=== PATIENT | female | born 1975 | race Caucasian/White ===

== ENCOUNTER 2017-09-21 10:37 | Emergency (ER) | payer BC ==
[~2017-09-21] VITALS: Ht 162.6 cm; Wt 117.9 kg
[2017-09-21] MEDS ORDERED: IBUPROFEN 800 MG TABLET. PO ONE (11:45)
[2017-09-21] MEDS ORDERED: diazePAM 5 MG TABLET PO ONE (11:45)
[2017-09-21] MEDS ORDERED: oxyCODONE/APAP 10/325 1 TAB TABLET PO ONE (11:45)
--- NOTE | 2017-09-21 12:14 | PHYS DOC ---
Past Medical History Past Medical History: Hypertension, Other Additional Past Medical Histor: IDIOPATHIC INTRACRANIAL HTN Past Surgical History: Hysterectomy Alcohol Use: None Drug Use: None Adult General Chief Complaint Chief Complaint: TOOTH ACHE OR PAIN HPI HPI Patient is a 41 year old female presents the ED complaining of dental pain 2 days. Describes the pain as sharp. Rates the pain as 9/10. Pain with chewing. States she also has some sores in her mouth. Denies chest pain, shortness of breath, headache, difficulty swallowing, n/v, fever, weakness or dizziness. Review of Systems Review of Systems Constitutional: Denies fever or chills [] Eyes: Denies change in visual acuity, redness, or eye pain [] HENT: Denies nasal congestion or sore throat [] Respiratory: Denies cough or shortness of breath [] Cardiovascular: No additional information not addressed in HPI [] GI: Denies abdominal pain, nausea, vomiting, bloody stools or diarrhea [] : Denies dysuria or hematuria [] Musculoskeletal: Denies back pain or joint pain [] Integument: Denies rash or skin lesions [] Neurologic: Denies headache, focal weakness or sensory changes [] Endocrine: Denies polyuria or polydipsia [] All other systems were reviewed and found to be within normal limits, except as documented in this note. Current Medications Current Medications Current Medications Medications (Trade) Dose Ordered Sig/Joey Start Time Stop Time Status Last Admin Dose Admin Diazepam (Valium) 5 mg 1X ONCE 09/21/17 11:45 09/21/17 11:46 DC 09/21/17 11:55 5 MG Ibuprofen (Motrin) 800 mg 1X ONCE 09/21/17 11:45 09/21/17 11:46 DC 09/21/17 11:54 800 MG Oxycodone/ Acetaminophen (Percocet 10/325) 1 tab 1X ONCE 09/21/17 11:45 09/21/17 11:46 DC 09/21/17 11:55 1 TAB Allergies Allergies Allergies Coded Allergies Type Severity Reaction Last Updated Verified Sulfa (Sulfonamide Antibiotics) Allergy Intermediate Rash 09/21/17 Yes codeine Allergy Intermediate Rash 09/21/17 Yes Physical Exam Physical Exam Constitutional: Well developed, well nourished, no acute distress, non-toxic appearance. [] HENT: Normocephalic, atraumatic, bilateral external ears normal, oropharynx moist, APTHOUS ULCERS TO INNER BUCCAL MUCOSA. MILD DENTAL CARIES TO LEFT LOWER MOLARS. NO ABSCESS OR FLUCTUANCE. no oral exudates, nose normal. [] Eyes: PERRLA, EOMI, conjunctiva normal, no discharge. [] Neck: Normal range of motion, no tenderness, supple, no stridor. [] Cardiovascular:Heart rate regular rhythm, no murmur [] Lungs & Thorax: Bilateral breath sounds clear to auscultation [] Neurologic: Alert and oriented X 3, normal motor function, normal sensory function, no focal deficits noted. [] Psychologic: Affect normal, judgement normal, mood normal. [] Current Patient Data Vital Signs Vital Signs Date Time Temp Pulse Resp B/P (MAP) Pulse Ox O2 Delivery O2 Flow Rate FiO2 09/21/17 12:40 102 16 175/77 (109) 100 Room Air 09/21/17 11:13 98.8 98.8 EKG EKG [] Radiology/Procedures Radiology/Procedures [] Course & Med Decision Making Course & Med Decision Making Pertinent Labs and Imaging studies reviewed. (See chart for details) []Patient's blood pressure elevated upon arrival. Patient has a history of intracranial hypertension. Patient states she was just saw her doctor 2 days ago and had normal lab work and vitals. Patient's blood pressure elevated due to pain component. Patient denies any cardiac related symptoms. Analgesics given in ED. Patients has blood pressure improved to 175/80. Pains pain improved. States she is feeling much better. Discussed follow-up for repeat serial blood pressure monitoring this coming week. Patient states she will make an appointment with her PCP on Saturday. Discussed the importance of follow-up and risks if patient does not follow-up. Patient understands and agrees with plan. Dragon Disclaimer Dragon Disclaimer This electronic medical record was generated, in whole or in part, using a voice recognition dictation system. Departure Departure Impression: Primary Impression: Pain, dental Additional Impressions: Hypertension Aphthous ulcer Referrals: RENUKA LUX (PCP) Patient Instructions: Dental Caries, Hypertension, Oral Ulcers Scripts Amoxicillin (AMOXICILLIN) 500 Mg Capsule 500 MG PO TID for 10 Days, #30 CAP 0 Refills Prov: FREDDY HAYES 09/21/17 Oxycodone/Apap 5-325 (PERCOCET 5-325 MG TABLET) 1 Each Tablet 1 TAB PO TID, #12 TAB Prov: FREDDY HAYES 09/21/17 Problem Qualifiers FREDDY HAYES Sep 21, 2017 12:14
[2017-09-21 12:40] VITALS: BP 175/77
[2017-09-21] MEDS ORDERED: OXYC-323 PO (13:00)
[2017-09-21] MEDS ORDERED: AMOX500C PO (13:00)
== END 2017-09-21 13:06 | disposition home or self-care (01) ==
LOC: ER 10:37
DX: K08.89 Other specified disorders of teeth and supporting structures (principal); I10 Essential (primary) hypertension; K12.0 Recurrent oral aphthae; Z90.710 Acquired absence of both cervix and uterus; Z88.2 Allergy status to sulfonamides; Z88.5 Allergy status to narcotic agent
CPT/HCPCS: 99284

== ENCOUNTER 2019-02-12 18:52 | Inpatient (IN) | payer BC ==
[~2019-02-12] VITALS: Ht 162.6 cm; Wt 119.3 kg
[~2019-02-12 18:52] MED LIST: AMOX500C PO; OXYC1TAB15 PO
[2019-02-12 19:31] LABS: BASO # 0.1 x10^3/uL (0.0-0.2); BASO % 0 % (0-3); EOS # 0.2 x10^3/uL (0.0-0.7); EOS % 2 % (0-3); HEMATOCRIT 45.3 % (36.0-47.0); HEMOGLOBIN 15.6 g/dL (12.0-15.5); LYMPH # 2.3 x10^3/uL (1.0-4.8); LYMPH % 15 % (24-48); MEAN CORPUSCULAR HEMOGLOBIN 30 pg (25-35); MEAN CORPUSCULAR HGB CONC 35 g/dL (31-37); MEAN CORPUSCULAR VOLUME 87 fL (79-100); MONO # 0.5 x10^3/uL (0.0-1.1); MONO % 3 % (0-9); NEUT # 12.6 x10^3uL (1.8-7.7); NEUT % 80 % (31-73); PLATELET COUNT 340 x10^3/uL (140-400); RED BLOOD COUNT 5.19 x10^6/uL (3.50-5.40); RED CELL DISTRIBUTION WIDTH 12.8 % (11.5-14.5); WHITE BLOOD COUNT 15.7 x10^3/uL (4.0-11.0)
[2019-02-12 19:40] LABS: CALCIUM 9.9 mg/dL (8.5-10.1); CREATININE 1.1 mg/dL (0.6-1.0); GFR 54.2; POTASSIUM 3.8 mmol/L (3.5-5.1); PROTHROMBIN TIME PATIENT 13.7 SEC (11.7-14.0)
[2019-02-12 19:46] LABS: ALBUMIN 4.2 g/dL (3.4-5.0); TOTAL BILIRUBIN 0.7 mg/dL (0.2-1.0); TOTAL PROTEIN 8.5 g/dL (6.4-8.2)
[2019-02-12] MEDS ORDERED: ONDANSETRON PF 4 MG/2 ML VIAL. IV ONE (20:00)
[2019-02-12] MEDS ORDERED: IV NORMAL SALINE 1000ML BAG 1,000 ML IV ONE ×3 (20:00→21:45)
[2019-02-12 20:09] LABS: % BANDS 19 % (0-9); % LYMPHS 14 % (24-48); % MONOS 2 % (0-10); % SEGS 65 % (35-66); PLT ESTIMATE ADEQUATE (ADEQUATE)
[2019-02-12] MEDS ORDERED: KETOROLAC 30 MG/ML VIAL. IV ONE (20:45)
[2019-02-12 20:49] LABS: BILIRUBIN,URINE NEGATIVE (NEG); CLARITY,URINE CLEAR; COLOR,URINE YELLOW; NITRITE,URINE NEGATIVE (NEG); PROTEIN,URINE NEGATIVE (NEG-TRACE); UROBILINOGEN,URINE 0.2 mg/dL (0.2 mg/dL)
[2019-02-12 20:58] LABS: HYALINE CASTS, URINE MANY /HPF; SQUAMOUS EPITHELIAL CELL,UR FEW /LPF
[2019-02-12 20:59] LABS: BACTERIA,URINE 0 /HPF (0-FEW); RBC,URINE OCC /HPF (0-2); WBC,URINE 0 /HPF (0-4)
--- NOTE | 2019-02-12 21:03 | RAD ---
Limited abdomen ultrasound HISTORY: Right upper quadrant pain radiating to the back for one day. FINDINGS: Pancreas poorly seen. Liver demonstrates coarse echogenicity compatible with fatty infiltration. Not grossly enlarged, measuring 17.4 cm. Right kidney measures 11.2 cm longitudinal without hydronephrosis. There is mild pericholecystic fluid. Gallbladder is mildly distended. Positive sonographic Nelson sign. Mild gallbladder wall thickening of 4 mm. No definite gallstone. No significant biliary ductal dilatation. IMPRESSION: No evidence of cholelithiasis. However, gallbladder findings are suggestive of cholecystitis. Inferior vena cava is documented. Electronically signed by: Waylon Cason MD (02/12/2019 8:59 PM) [facility]
[2019-02-12] MEDS ORDERED: CONTRAST GIVEN. MC PRN (21:30)
[2019-02-12] MEDS ORDERED: IOHEXOL 300 MG/ML 100ML VIAL. IV ONE (21:30)
[2019-02-12] MEDS ORDERED: PIPERACILLIN/TAZOBACTAM 3.375 GM in IV NORMAL SALINE 50ML 50 ML IV ONE (22:00)
--- NOTE | 2019-02-12 22:03 | RAD ---
CT ABD PELV W/ IV CONTRST ONLY Indication: RUQ PAIN; OMNI 300, 60ML Exposure: One or more of the following individualized dose reduction techniques were utilized for this examination: 1. Automated exposure control 2. Adjustment of the mA and/or kV according to patient size 3. Use of iterative reconstruction technique. Technique: Intravenous contrast was given. No oral contrast per request. Lung bases are clear. Liver and spleen appear unremarkable. No evidence of adrenal mass. Pancreas appears unremarkable. Kidneys demonstrate symmetric enhancement without hydronephrosis or dominant mass. No calcified gallstone. Gallbladder is mildly distended and there is mild gallbladder wall thickening. The aorta is nonaneurysmal. Small aortocaval lymph nodes are identified measuring up to 8 mm in short axis, likely reactive. No pathologic lymph node enlargement is seen. The aorta is nonaneurysmal. No significant small bowel distention. No evidence of acute colitis. The appendix appears normal. No evidence of ascites or pneumoperitoneum. Mild degenerative spurring of the spine. No acute bone destruction. No evidence of pelvic mass. No significant urinary bladder wall thickening. IMPRESSION: 1. Mild gallbladder distention with wall thickening, suggestive of acute cholecystitis. No evidence of calcified stone. 2. No other acute findings. Electronically signed by: Waylon Cason MD (02/12/2019 10:00 PM) [facility]
--- NOTE | 2019-02-12 22:21 | PHYS DOC ---
Past Medical History Past Medical History: Diabetes-Type II, Fibromyalgia, Hypertension, Hypothyroid, Other Additional Past Medical Histor: IDIOPATHIC INTRACRANIAL HTN, Restless Leg Past Surgical History: Hysterectomy, Other Additional Past Surgical Histo: Bilateral Carpal Tunnel Alcohol Use: None Drug Use: None Adult General Chief Complaint Chief Complaint: FLANK PAIN HPI HPI Patient is a 43 year old female presents to the due to chief complaint of right abdominal tenderness which radiates to her right shoulder. Patient states that the pain started this morning. Patient also states that she has constant vomiting since this morning and is not able to hold anything down. Review of Systems Review of Systems Constitutional: Denies fever or chills [] Eyes: Denies change in visual acuity, redness, or eye pain [] HENT: Denies nasal congestion or sore throat [] Respiratory: Denies cough or shortness of breath [] Cardiovascular: No additional information not addressed in HPI [] GI: Complains of right upper quadrant tenderness. Patient also complains of vomiting. : Denies dysuria or hematuria [] Musculoskeletal: Denies back pain or joint pain [] Integument: Denies rash or skin lesions [] Neurologic: Denies headache, focal weakness or sensory changes [] Endocrine: Denies polyuria or polydipsia [] All other systems were reviewed and found to be within normal limits, except as documented in this note. Current Medications Current Medications Current Medications Medications (Trade) Dose Ordered Sig/Joey Start Time Stop Time Status Last Admin Dose Admin Info (CONTRAST GIVEN -- Rx MONITORING) 1 each PRN DAILY PRN 02/12/19 21:30 02/14/19 21:29 Iohexol (Omnipaque 300 Mg/ml) 60 ml 1X ONCE 02/12/19 21:30 02/12/19 21:31 DC 02/12/19 21:41 60 ML Ketorolac Tromethamine (Toradol 30mg Vial) 30 mg 1X ONCE 02/12/19 20:45 02/12/19 20:46 DC 02/12/19 20:47 30 MG Ondansetron HCl (Zofran) 4 mg 1X ONCE 02/12/19 20:00 02/12/19 20:01 DC 02/12/19 19:35 4 MG Sodium Chloride 1,000 ml @ 1,000 mls/hr 1X ONCE 02/12/19 21:00 02/12/19 21:59 DC 02/12/19 20:47 1,000 MLS/HR Allergies Allergies Allergies Coded Allergies Type Severity Reaction Last Updated Verified Sulfa (Sulfonamide Antibiotics) Allergy Intermediate Rash 09/21/17 Yes codeine Allergy Intermediate Rash 09/21/17 Yes Physical Exam Physical Exam Constitutional: Well developed, well nourished, no acute distress, non-toxic appearance. HENT: Normocephalic, atraumatic, normocaphalic Eyes: PERRL, EOMI Neck: Normal range of motion, no tenderness, supple Cardiovascular: Tachycardia Resp: Bilateral breath sounds clear to auscultation Abdomen: Right upper quadrant tenderness Skin: Warm, dry, no erythema, no rash. Back: No tenderness, no CVA tenderness. Extremities: No tenderness, ROM intact, no edema. Neurologic: Alert and oriented X 3, normal motor function, normal sensory function, no focal deficits noted. Psychologic: Affect normal, judgement normal, mood normal. Current Patient Data Vital Signs Vital Signs Date Time Temp Pulse Resp B/P (MAP) Pulse Ox O2 Delivery O2 Flow Rate FiO2 02/12/19 21:08 112 175/89 (117) 95 Room Air 02/12/19 19:00 98.1 18 98.1 Lab Values Laboratory Tests Test 02/12/19 19:20 02/12/19 20:35 White Blood Count 15.7 x10^3/uL (4.0-11.0) H Red Blood Count 5.19 x10^6/uL (3.50-5.40) Hemoglobin 15.6 g/dL (12.0-15.5) H Hematocrit 45.3 % (36.0-47.0) Mean Corpuscular Volume 87 fL (79-100) Mean Corpuscular Hemoglobin 30 pg (25-35) Mean Corpuscular Hemoglobin Concent 35 g/dL (31-37) Red Cell Distribution Width 12.8 % (11.5-14.5) Platelet Count 340 x10^3/uL (140-400) Neutrophils (%) (Auto) 80 % (31-73) H Lymphocytes (%) (Auto) 15 % (24-48) L Monocytes (%) (Auto) 3 % (0-9) Eosinophils (%) (Auto) 2 % (0-3) Basophils (%) (Auto) 0 % (0-3) Neutrophils # (Auto) 12.6 x10^3uL (1.8-7.7) H Lymphocytes # (Auto) 2.3 x10^3/uL (1.0-4.8) Monocytes # (Auto) 0.5 x10^3/uL (0.0-1.1) Eosinophils # (Auto) 0.2 x10^3/uL (0.0-0.7) Basophils # (Auto) 0.1 x10^3/uL (0.0-0.2) Segmented Neutrophils % 65 % (35-66) Band Neutrophils % 19 % (0-9) H Lymphocytes % 14 % (24-48) L Monocytes % 2 % (0-10) Platelet Estimate Adequate (ADEQUATE) Prothrombin Time 13.7 SEC (11.7-14.0) Prothrombin Time INR 1.1 (0.8-1.1) Sodium Level 137 mmol/L (136-145) Potassium Level 3.8 mmol/L (3.5-5.1) Chloride Level 99 mmol/L (98-107) Carbon Dioxide Level 26 mmol/L (21-32) Anion Gap 12 (6-14) Blood Urea Nitrogen 9 mg/dL (7-20) Creatinine 1.1 mg/dL (0.6-1.0) H Estimated GFR (Cockcroft-Gault) 54.2 BUN/Creatinine Ratio 8 (6-20) Glucose Level 185 mg/dL (70-99) H Lactic Acid Level 2.8 mmol/L (0.4-2.0) H Calcium Level 9.9 mg/dL (8.5-10.1) Total Bilirubin 0.7 mg/dL (0.2-1.0) Aspartate Amino Transferase (AST) 22 U/L (15-37) Alanine Aminotransferase (ALT) 31 U/L (14-59) Alkaline Phosphatase 97 U/L (46-116) Troponin I Quantitative < 0.017 ng/mL (0.000-0.055) Total Protein 8.5 g/dL (6.4-8.2) H Albumin 4.2 g/dL (3.4-5.0) Albumin/Globulin Ratio 1.0 (1.0-1.7) Lipase 75 U/L (73-393) Urine Collection Type Unknown Urine Color Yellow Urine Clarity Clear Urine pH 6.0 Urine Specific [place] <=1.005 Urine Protein Negative mg/dL (NEG-TRACE) Urine Glucose (UA) Negative mg/dL (NEG) Urine Ketones (Stick) Negative mg/dL (NEG) Urine Blood Negative (NEG) Urine Nitrite Negative (NEG) Urine Bilirubin Negative (NEG) Urine Urobilinogen Dipstick 0.2 mg/dL (0.2 mg/dL) Urine Leukocyte Esterase Negative (NEG) Urine RBC Occ /HPF (0-2) Urine WBC 0 /HPF (0-4) Urine Squamous Epithelial Cells Few /LPF Urine Bacteria 0 /HPF (0-FEW) Urine Hyaline Casts Many /HPF Urine Mucus Mod /LPF Laboratory Tests 02/12/19 19:20 Laboratory Tests 02/12/19 19:20 EKG EKG EKG interpretation: 19:09 on 02/12/2019 HR: 158 Sinus tachycardia regular intervals Normal axis Nonspecific ST changes No STEMI Radiology/Procedures Radiology/Procedures [] Impressions: PROCEDURE: ABDOMEN LTD Limited abdomen ultrasound HISTORY: Right upper quadrant pain radiating to the back for one day. FINDINGS: Pancreas poorly seen. Liver demonstrates coarse echogenicity compatible with fatty infiltration. Not grossly enlarged, measuring 17.4 cm. Right kidney measures 11.2 cm longitudinal without hydronephrosis. There is mild pericholecystic fluid. Gallbladder is mildly distended. Positive sonographic Nelson sign. Mild gallbladder wall thickening of 4 mm. No definite gallstone. No significant biliary ductal dilatation. IMPRESSION: No evidence of cholelithiasis. However, gallbladder findings are suggestive of cholecystitis. Inferior vena cava is documented. Electronically signed by: Waylon Cason MD (02/12/2019 8:59 PM) [facility] PROCEDURE: CT ABD PELV W/ IV CONTRST ONLY CT ABD PELV W/ IV CONTRST ONLY Indication: RUQ PAIN; OMNI 300, 60ML Exposure: One or more of the following individualized dose reduction techniques were utilized for this examination: 1. Automated exposure control 2. Adjustment of the mA and/or kV according to patient size 3. Use of iterative reconstruction technique. Technique: Intravenous contrast was given. No oral contrast per request. Lung bases are clear. Liver and spleen appear unremarkable. No evidence of adrenal mass. Pancreas appears unremarkable. Kidneys demonstrate symmetric enhancement without hydronephrosis or dominant mass. No calcified gallstone. Gallbladder is mildly distended and there is mild gallbladder wall thickening. The aorta is nonaneurysmal. Small aortocaval lymph nodes are identified measuring up to 8 mm in short axis, likely reactive. No pathologic lymph node enlargement is seen. The aorta is nonaneurysmal. No significant small bowel distention. No evidence of acute colitis. The appendix appears normal. No evidence of ascites or pneumoperitoneum. Mild degenerative spurring of the spine. No acute bone destruction. No evidence of pelvic mass. No significant urinary bladder wall thickening. IMPRESSION: 1. Mild gallbladder distention with wall thickening, suggestive of acute cholecystitis. No evidence of calcified stone. 2. No other acute findings. Electronically signed by: Waylon Cason MD (02/12/2019 10:00 PM) [facility] Course & Med Decision Making Course & Med Decision Making Pertinent Labs and Imaging studies reviewed. (See chart for details) Ordered labs, UA, IV fluids, ultrasound of the right upper quadrant. Patient is WBC is elevated at 15.7. Lactate is 2.8. Ordered blood cultures. Patient received a total of 3 L in the ER. Heart rate now in the low 110s. Ultrasound shows that patient has probable cholecystitis. I ordered IV antibiotics in the ED. I discussed the case with general surgery on-call Dr. Cordon. He recommends the p atient be admitted to the hospitalist service, I ordered a CT scan of the abdomen and pelvis with IV contrast. CT scan also shows most likely cholecystitis. I discussed the case with Dr. Graham who is a hospital list on-call who accepts admission. I also discussed results and plan of care with patient and family. Patient's blood pressures elevated and she is not able to take her night meds an d so I have ordered labetalol 5 mg IV. Dragon Disclaimer Dragon Disclaimer This electronic medical record was generated, in whole or in part, using a voice recognition dictation system. Departure Departure Referrals: RENUKA LUX (PCP) MIRIAN GILBERT DO February 12, 2019 22:21
[2019-02-12] MEDS ORDERED: LABETALOL 20 MG/4 ML DISP.SYRIN. IVP ONE (22:30)
[2019-02-12] MEDS ORDERED: LABETALOL 20 MG/4 ML DISP.SYRIN. IVP PRN (22:30)
[2019-02-12 23:30] VITALS: BP 176/104
[2019-02-12] MEDS ORDERED: ROPI0.5T PO (23:48)
[2019-02-12] MEDS ORDERED: PROM25TA10 PO (23:48)
[2019-02-12] MEDS ORDERED: TIZA4TAB PO (23:48)
[2019-02-12] MEDS ORDERED: ATOR10TA60 PO (23:48)
[2019-02-12] MEDS ORDERED: LOSA25TA54 PO (23:48)
[2019-02-12] MEDS ORDERED: LAMO150T2 PO (23:48)
[2019-02-12] MEDS ORDERED: CLON0.5T11 PO (23:48)
[2019-02-12] MEDS ORDERED: CARV12.511 PO (23:48)
[2019-02-12] MEDS ORDERED: AMIT50TA PO (23:48)
[2019-02-13] MEDS ORDERED: tiZANidine 4 MG TABLET. PO PRN (00:45)
[2019-02-13] MEDS: MORPHINE SULFATE 2 MG/ML VIAL. IV PRN ×2 (01:35→10:19)
[2019-02-13] MEDS: IV NORMAL SALINE 1000ML BAG 1,000 ML IV SCH ×3 (01:35→23:12)
[2019-02-13] MEDS: AMITRIPTYLINE HCL 25 MG TABLET. PO SCH ×2 (01:36→21:51)
[2019-02-13] MEDS: rOPINIRole 0.25 MG TABLET. PO SCH ×2 (01:36→09:00)
[2019-02-13] MEDS: ONDANSETRON PF 4 MG/2 ML VIAL. IV PRN ×2 (01:36→17:09)
[2019-02-13] MEDS: LOSARTAN POTASSIUM 25 MG TABLET. PO SCH ×2 (01:37→21:52)
[2019-02-13] MEDS: lamoTRIgine 100 MG TABLET. PO SCH ×2 (01:38→09:00)
[2019-02-13] MEDS: CARVEDILOL 12.5 MG TABLET. PO SCH ×4 (01:38→21:51)
[2019-02-13] MEDS: ATORVASTATIN CALCIUM 10 MG TABLET. PO SCH ×2 (01:38→21:52)
[2019-02-13] MEDS: clonazePAM 0.5 MG TABLET PO SCH ×3 (01:39→21:50)
[2019-02-13 03:38] VITALS: BP 121/65
[2019-02-13] MEDS ORDERED: IOHEXOL 300 MG/ML 100ML VIAL. ONE (05:06)
--- NOTE | 2019-02-13 07:02 | EKG ---
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
[2019-02-13 07:15] VITALS: BP 128/88
[2019-02-13] MEDS: KETOROLAC 30 MG/ML VIAL. IV PRN ×2 (08:27→20:26)
--- NOTE | 2019-02-13 08:56 | PDOC2 ---
NAVYA PERRY MANAGER WEALTH MANAGEMENT 02/13/19 0856: CONSULT Date of Consult Date of Consult DATE: 02/13/19 TIME: 08:49 Reason for Consult Reason for Consult: possible cholecystitis Referring Physician Referring Physician: ER Identification/Chief Complaint Chief Complaint abdominal pain Source Source: Chart review, Patient History of Present Illness Reason for Visit: Acute onset of vomiting and diarrhea yesterday. Also developed epigastric, RUQ pain. Pain radiates up to chest. Denies any sick contacts, had bbq for dinner, however no one else got sick.. Currently no further vomiting or diarrhea, pain does persist Past Medical History Past Medical History intracranial HTN Cardiovascular: HTN, Hyperlipidemia Heme/Onc: Cancer (cervical ) Rheumatologic: Fibromyalgia Endocrine: Hypothyroidism Past Surgical History Past Surgical History: Hysterectomy Family History Family History: Other (noncontributory to current illness ) Social History No ALCOHOL: none Drugs: None Lives: with Family Current Medications Current Medications Current Medications Sodium Chloride 1,000 ml @ 1,000 mls/hr 1X ONCE IV Last administered on 02/12/19at 19:35; Start 02/12/19 at 20:00; Stop 02/12/19 at 20:59; Status DC Ondansetron HCl (Zofran) 4 mg 1X ONCE IV Last administered on 02/12/19at 19:35; Start 02/12/19 at 20:00; Stop 02/12/19 at 20:01; Status DC Sodium Chloride 1,000 ml @ 1,000 mls/hr 1X ONCE IV Last administered on 02/12/19at 20:47; Start 02/12/19 at 21:00; Stop 02/12/19 at 21:59; Status DC Ketorolac Tromethamine (Toradol 30mg Vial) 30 mg 1X ONCE IV Last administered on 02/12/19at 20:47; Start 02/12/19 at 20:45; Stop 02/12/19 at 20:46; Status DC Iohexol (Omnipaque 300 Mg/ml) 60 ml 1X ONCE IV Last administered on 02/12/19at 21:41; Start 02/12/19 at 21:30; Stop 02/12/19 at 21:31; Status DC Info (CONTRAST GIVEN -- Rx MONITORING) 1 each PRN DAILY PRN MC SEE COMMENTS; Start 02/12/19 at 21:30; Stop 02/14/19 at 21:29 Sodium Chloride 1,000 ml @ 1,000 mls/hr 1X ONCE IV Last administered on 02/12/19at 22:05; Start 02/12/19 at 21:45; Stop 02/12/19 at 22:44; Status DC Piperacillin Sod/ Tazobactam Sod 3.375 gm/Sodium Chloride 50 ml @ 100 mls/hr 1X ONCE IV Last administered on 02/12/19at 22:05; Start 02/12/19 at 22:00; Stop 02/12/19 at 22:29; Status DC Ondansetron HCl (Zofran) 4 mg PRN Q8HRS PRN IV NAUSEA/VOMITING Last administered on 02/13/19 01:36; Start 02/12/19 at 22:00; Stop 02/13/19 at 21:59 Labetalol HCl (Normodyne Iv Push) 5 mg 1X ONCE IVP Last administered on 02/12/19at 22:42; Start 02/12/19 at 22:30; Stop 02/12/19 at 22:31; Status DC Labetalol HCl (Normodyne Iv Push) 5 mg PRN Q10MIN PRN IVP HYPERTENSION, SEE COMMENTS; Start 02/12/19 at 22:30 Amitriptyline HCl (Elavil) 50 mg HS PO Last administered on 02/13/19 01:36; Start 02/13/19 at 00:45 Atorvastatin Calcium (Lipitor) 10 mg HS PO Last administered on 02/13/19 01:38; Start 02/13/19 at 00:45 Carvedilol (Coreg) 12.5 mg BIDWMEALS PO Last administered on 02/13/19 08:26; Start 02/13/19 at 00:45 Clonazepam (KlonoPIN) 0.5 mg BID PO Last administered on 02/13/19 08:26; Start 02/13/19 at 00:45 Losartan Potassium (Cozaar) 25 mg HS PO Last administered on 02/13/19at 01:37; Start 02/13/19 at 00:45 Oxycodone/ Acetaminophen (Percocet 5/325) 1 tab TID PO ; Start 02/13/19 at 09:00 Lamotrigine (LaMICtal) 150 mg DAILY PO Last administered on 5/3/19at 01:38; Start 02/13/19 at 00:45 Promethazine HCl (Phenergan) 25 mg PRN Q6HRS PRN PO NAUSEA/VOMITING; Start 02/13/19 at 00:45 Ropinirole HCl (Requip) 0.25 mg DAILY PO Last administered on 02/13/19at 01:36; Start 02/13/19 at 00:45 Tizanidine HCl (Zanaflex) 4 mg PRN TID PRN PO spasms; Start 02/13/19 at 00:45 Morphine Sulfate (Morphine Sulfate) 2 mg PRN Q2HR PRN IV PAIN Last administered on 02/13/19at 01:35; Start 02/13/19 at 00:45 Ketorolac Tromethamine (Toradol 30mg Vial) 30 mg PRN Q6HRS PRN IV PAIN Last ad ministered on 02/13/19at 08:27; Start 02/13/19 at 00:45; Stop 02/18/19 at 00:44 Sodium Chloride 1,000 ml @ 125 mls/hr Q8H IV Last administered on 02/13/19at 01:35; Start 02/13/19 at 01:30 Iohexol (Omnipaque 300 Mg/ml) 100 ml STK-MED ONCE .ROUTE ; Start 02/13/19 at 05:06; Stop 02/13/19 at 05:07; Status DC Active Scripts Active Amoxicillin 500 Mg Capsule 500 Mg PO TID 10 Days Percocet 5-325 Mg Tablet (Oxycodone/Acetaminophen) 1 Each Tablet 1 Tab PO TID Reported Amitriptyline Hcl 50 Mg Tablet 50 Mg PO HS Losartan Potassium (Losartan Potassium) 25 Mg Tablet 25 Mg PO HS Clonazepam 0.5 Mg Tablet 0.5 Mg PO BID Lamotrigine 150 Mg Tablet 150 Mg PO DAILY Carvedilol (Carvedilol) 12.5 Mg Tablet 12.5 Mg PO BIDWMEALS Promethazine Hcl 25 Mg Tablet 25 Mg PO Q6H PRN Atorvastatin Calcium 10 Mg Tablet 10 Mg PO HS Requip (Ropinirole Hcl) 0.5 Mg Tablet 0.25 Mg PO DAILY Tizanidine Hcl 4 Mg Tablet 1 Tab PO TID PRN Allergies Allergies: Coded Allergies: Sulfa (Sulfonamide Antibiotics) (Verified Allergy, Intermediate, Rash, 12/9/17) codeine (Verified Allergy, Intermediate, Rash, 09/21/17) ROS General: No: Chills, Other (fevers ) PSYCHOLOGICAL ROS: No: Anxiety, Depression Eyes: No Blurry vision, No Double vision HEENT: No: Heacaches, Sore Throat Hematological and Lymphatic: No: Bleeding Problems, Blood Clots Respiratory: No: Cough, Shortness of breath Cardiovascular: yes Chest Pain; No Palpitations Gastrointestinal: Yes Other (see hpi) Genitourinary: No Dysuria, No Hematuria Musculoskeletal: No Joint Pain, No Muscle Pain Neurological: No Impaired Coord/balance, No Numbness/Tingling Skin: No Pruritus, No Rash Physical Exam General: Alert, Oriented X3, Cooperative, No acute distress HEENT: PERRLA, Mucous membr. moist/pink Lungs: Clear to auscultation, Normal air movement Heart: Regular rate, Normal S1, Normal S2, No murmurs Abdomen: Soft, Other (ND, epigastric, RUQ TTP) Extremities: No clubbing, No cyanosis Skin: No rashes, No breakdown Neuro: Normal gait, Normal speech Psych/Mental Status: Mental status NL, Mood NL MUSCULOSKELETAL: No deformity, No swelling Vitals VITALS Vital Signs Date Time Temp Pulse Resp B/P (MAP) Pulse Ox O2 Delivery O2 Flow Rate FiO2 02/13/19 08:26 83 128/88 02/13/19 07:15 98.4 18 96 Room Air 98.4 Labs Labs Laboratory Tests Test 02/12/19 19:20 02/12/19 20:35 White Blood Count 15.7 x10^3/uL (4.0-11.0) Red Blood Count 5.19 x10^6/uL (3.50-5.40) Hemoglobin 15.6 g/dL (12.0-15.5) Hematocrit 45.3 % (36.0-47.0) Mean Corpuscular Volume 87 fL (79-100) Mean Corpuscular Hemoglobin 30 pg (25-35) Mean Corpuscular Hemoglobin Concent 35 g/dL (31-37) Red Cell Distribution Width 12.8 % (11.5-14.5) Platelet Count 340 x10^3/uL (140-400) Neutrophils (%) (Auto) 80 % (31-73) Lymphocytes (%) (Auto) 15 % (24-48) Monocytes (%) (Auto) 3 % (0-9) Eosinophils (%) (Auto) 2 % (0-3) Basophils (%) (Auto) 0 % (0-3) Neutrophils # (Auto) 12.6 x10^3uL (1.8-7.7) Lymphocytes # (Auto) 2.3 x10^3/uL (1.0-4.8) Monocytes # (Auto) 0.5 x10^3/uL (0.0-1.1) Eosinophils # (Auto) 0.2 x10^3/uL (0.0-0.7) Basophils # (Auto) 0.1 x10^3/uL (0.0-0.2) Segmented Neutrophils % 65 % (35-66) Band Neutrophils % 19 % (0-9) Lymphocytes % 14 % (24-48) Monocytes % 2 % (0-10) Platelet Estimate Adequate (ADEQUATE) Prothrombin Time 13.7 SEC (11.7-14.0) Prothromb Time International Ratio 1.1 (0.8-1.1) Sodium Level 137 mmol/L (136-145) Potassium Level 3.8 mmol/L (3.5-5.1) Chloride Level 99 mmol/L (98-107) Carbon Dioxide Level 26 mmol/L (21-32) Anion Gap 12 (6-14) Blood Urea Nitrogen 9 mg/dL (7-20) Creatinine 1.1 mg/dL (0.6-1.0) Estimated GFR (Cockcroft-Gault) 54.2 BUN/Creatinine Ratio 8 (6-20) Glucose Level 185 mg/dL (70-99) Lactic Acid Level 2.8 mmol/L (0.4-2.0) Calcium Level 9.9 mg/dL (8.5-10.1) Total Bilirubin 0.7 mg/dL (0.2-1.0) Aspartate Amino Transf (AST/SGOT) 22 U/L (15-37) Alanine Aminotransferase (ALT/SGPT) 31 U/L (14-59) Alkaline Phosphatase 97 U/L (46-116) Troponin I Quantitative < 0.017 ng/mL (0.000-0.055) Total Protein 8.5 g/dL (6.4-8.2) Albumin 4.2 g/dL (3.4-5.0) Albumin/Globulin Ratio 1.0 (1.0-1.7) Lipase 75 U/L (73-393) Urine Collection Type Unknown Urine Color Yellow Urine Clarity Clear Urine pH 6.0 Urine Specific Clayton <=1.005 Urine Protein Negative mg/dL (NEG-TRACE) Urine Glucose (UA) Negative mg/dL (NEG) Urine Ketones (Stick) Negative mg/dL (NEG) Urine Blood Negative (NEG) Urine Nitrite Negative (NEG) Urine Bilirubin Negative (NEG) Urine Urobilinogen Dipstick 0.2 mg/dL (0.2 mg/dL) Urine Leukocyte Esterase Negative (NEG) Urine RBC Occ /HPF (0-2) Urine WBC 0 /HPF (0-4) Urine Squamous Epithelial Cells Few /LPF Urine Bacteria 0 /HPF (0-FEW) Urine Hyaline Casts Many /HPF Urine Mucus Mod /LPF Laboratory Tests Test 02/12/19 19:20 02/12/19 20:35 White Blood Count 15.7 x10^3/uL (4.0-11.0) Red Blood Count 5.19 x10^6/uL (3.50-5.40) Hemoglobin 15.6 g/dL (12.0-15.5) Hematocrit 45.3 % (36.0-47.0) Mean Corpuscular Volume 87 fL (79-100) Mean Corpuscular Hemoglobin 30 pg (25-35) Mean Corpuscular Hemoglobin Concent 35 g/dL (31-37) Red Cell Distribution Width 12.8 % (11.5-14.5) Platelet Count 340 x10^3/uL (140-400) Neutrophils (%) (Auto) 80 % (31-73) Lymphocytes (%) (Auto) 15 % (24-48) Monocytes (%) (Auto) 3 % (0-9) Eosinophils (%) (Auto) 2 % (0-3) Basophils (%) (Auto) 0 % (0-3) Neutrophils # (Auto) 12.6 x10^3uL (1.8-7.7) Lymphocytes # (Auto) 2.3 x10^3/uL (1.0-4.8) Monocytes # (Auto) 0.5 x10^3/uL (0.0-1.1) Eosinophils # (Auto) 0.2 x10^3/uL (0.0-0.7) Basophils # (Auto) 0.1 x10^3/uL (0.0-0.2) Segmented Neutrophils % 65 % (35-66) Band Neutrophils % 19 % (0-9) Lymphocytes % 14 % (24-48) Monocytes % 2 % (0-10) Platelet Estimate Adequate (ADEQUATE) Prothrombin Time 13.7 SEC (11.7-14.0) Prothromb Time International Ratio 1.1 (0.8-1.1) Sodium Level 137 mmol/L (136-145) Potassium Level 3.8 mmol/L (3.5-5.1) Chloride Level 99 mmol/L (98-107) Carbon Dioxide Level 26 mmol/L (21-32) Anion Gap 12 (6-14) Blood Urea Nitrogen 9 mg/dL (7-20) Creatinine 1.1 mg/dL (0.6-1.0) Estimated GFR (Cockcroft-Gault) 54.2 BUN/Creatinine Ratio 8 (6-20) Glucose Level 185 mg/dL (70-99) Lactic Acid Level 2.8 mmol/L (0.4-2.0) Calcium Level 9.9 mg/dL (8.5-10.1) Total Bilirubin 0.7 mg/dL (0.2-1.0) Aspartate Amino Transf (AST/SGOT) 22 U/L (15-37) Alanine Aminotransferase (ALT/SGPT) 31 U/L (14-59) Alkaline Phosphatase 97 U/L (46-116) Troponin I Quantitative < 0.017 ng/mL (0.000-0.055) Total Protein 8.5 g/dL (6.4-8.2) Albumin 4.2 g/dL (3.4-5.0) Albumin/Globulin Ratio 1.0 (1.0-1.7) Lipase 75 U/L (73-393) Urine Collection Type Unknown Urine Color Yellow Urine Clarity Clear Urine pH 6.0 Urine Specific [place] <=1.005 Urine Protein Negative mg/dL (NEG-TRACE) Urine Glucose (UA) Negative mg/dL (NEG) Urine Ketones (Stick) Negative mg/dL (NEG) Urine Blood Negative (NEG) Urine Nitrite Negative (NEG) Urine Bilirubin Negative (NEG) Urine Urobilinogen Dipstick 0.2 mg/dL (0.2 mg/dL) Urine Leukocyte Esterase Negative (NEG) Urine RBC Occ /HPF (0-2) Urine WBC 0 /HPF (0-4) Urine Squamous Epithelial Cells Few /LPF Urine Bacteria 0 /HPF (0-FEW) Urine Hyaline Casts Many /HPF Urine Mucus Mod /LPF Assessment/Plan Assessment/Plan abdominal pain, diarrhea--? gastroenteritis US with pericholecystic fluid,GB dilated--however no stones--? cholecystitis vs secondary to gastroenteritis will review with CARLOS MANUEL Diaz MD 02/13/19 1226: CONSULT Assessment/Plan Assessment/Plan Pt seen and examined. Agree with Ms. Perry's note Pt with c/o RUQ pain, long standing abd soft, mild TTP RUQ CT and US with mild changes will ask GI to evaluate and obtain PIPPDA Thanks for consult! NAVYA PERRY APRN February 13, 2019 08:56 CARLOS MANUEL HOGAN MD February 13, 2019 12:26
[2019-02-13] MEDS ORDERED: oxyCODONE/APAP 5/325 1 TAB TABLET PO SCH (09:00)
[2019-02-13 10:55] VITALS: BP 151/93
[2019-02-13] MEDS ORDERED: PIP/TAZO PER PHARMACY MC PRN (11:30)
--- NOTE | 2019-02-13 12:22 | HP ---
ADMIT DATE: 02/13/2019 CHIEF COMPLAINT: Flank pain. HISTORY OF PRESENT ILLNESS: The patient is a pleasant 43-year-old female presented to the ER with flank pain. It is in the right side, it is in the right upper quadrant actually. It is going into the shoulder blade, describes as agonizing, rated at 10/10. She took some home meds but that did not work. It got worse with food. We did some imaging, it is showing cholecystitis. PAST MEDICAL HISTORY: Diabetes, hypertension, hyperlipidemia, fibromyalgia, idiopathic intracranial hypertension, restless legs, hysterectomy, bilateral carpal tunnel surgery. ALLERGIES: SULFA AND CODEINE. FAMILY HISTORY: Hypertension. SOCIAL HISTORY: She does not drink, smoke or take drugs. 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 MEDICATIONS: Reviewed, please refer to the MRAD. She is on promethazine, amoxicillin, tizanidine, atorvastatin, carvedilol, losartan, oxycodone, clonazepam, amitriptyline, Requip. REVIEW OF SYSTEMS: GENERAL: No history of weight change, weakness or fevers. SKIN: No bruising, hair changes or rashes. EYES: No blurred, double or loss of vision. NOSE AND THROAT: No history of nosebleeds, hoarseness or sore throat. HEART: No history of palpitations, chest pain or shortness of breath on exertion. LUNGS: Denies cough, hemoptysis, wheezing or shortness of breath. GASTROINTESTINAL: She complains of abdominal pain. GENITOURINARY: No history of frequency, urgency, hesitancy or nocturia. NEUROLOGIC: Denies history of numbness, tingling, tremor or weakness. PSYCHIATRIC: No history of panic, anxiety or depression. ENDOCRINE: No history of heat or cold intolerance, polyuria or polydipsia. EXTREMITIES: Denies muscle weakness, joint pain, pain on walking or stiffness. PHYSICAL EXAMINATION: VITAL SIGNS: Temperature afebrile, pulse 83, respirations 18, blood pressure 128/90. GENERAL: She is alert, cooperative, complaining of pain. HEART: Normal S1, S2. LUNGS: Clear to auscultation. ABDOMEN: Soft. Decreased bowel sounds, tender in the right upper quadrant. EXTREMITIES: Trace edema. SKIN: No rash. ENDOCRINE: No thyromegaly. LYMPHATICS: No cervical nodes. HEMATOPOIETIC: No bruising. PSYCHIATRIC: She is stable. LABORATORY DATA: White count is 15, hemoglobin 15, platelets 340. Electrolytes are normal. Glucose is 185. INR is 1.1. Urinalysis negative. ASSESSMENT AND PLAN: Symptomatic cholecystitis. The patient has been admitted. We are starting IV Zosyn, IV fluids, p.r.n. Zofran, p.r.n. morphine. Consult General Surgery. DVT prophylaxis. Home meds. Full code. WILBER MULTANI DO DR: MARGARITA/gerson JOB#: [id number] / [id number]
[2019-02-13] MEDS: PIPERACILLIN/TAZOBACTAM 3.375 GM in IV NORMAL SALINE 50ML 50 ML IV SCH ×3 (12:26→23:54)
[2019-02-13 14:36] VITALS: BP 125/75
--- NOTE | 2019-02-13 14:55 | PDOC2 ---
CONSULT Date of Consult Date of Consult DATE: 02/13/19 TIME: 14:54 Reason for Consult Reason for Consult: Abd pain/n/v Past Medical History Cardiovascular: HTN, Hyperlipidemia Heme/Onc: Cancer (cervical ) Rheumatologic: Fibromyalgia Endocrine: Hypothyroidism Past Surgical History Past Surgical History: Hysterectomy Family History Family History: Other (noncontributory to current illness ) Social History No ALCOHOL: none Drugs: None Lives: with Family Current Medications Current Medications Current Medications Sodium Chloride 1,000 ml @ 1,000 mls/hr 1X ONCE IV Last administered on 02/12/19at 19:35; Start 02/12/19 at 20:00; Stop 02/12/19 at 20:59; Status DC Ondansetron HCl (Zofran) 4 mg 1X ONCE IV Last administered on 02/12/19at 19:35; Start 02/12/19 at 20:00; Stop 02/12/19 at 20:01; Status DC Sodium Chloride 1,000 ml @ 1,000 mls/hr 1X ONCE IV Last administered on 02/12/19at 20:47; Start 02/12/19 at 21:00; Stop 02/12/19 at 21:59; Status DC Ketorolac Tromethamine (Toradol 30mg Vial) 30 mg 1X ONCE IV Last administered on 02/12/19at 20:47; Start 02/12/19 at 20:45; Stop 02/12/19 at 20:46; Status DC Iohexol (Omnipaque 300 Mg/ml) 60 ml 1X ONCE IV Last administered on 02/12/19at 21:41; Start 02/12/19 at 21:30; Stop 02/12/19 at 21:31; Status DC Info (CONTRAST GIVEN -- Rx MONITORING) 1 each PRN DAILY PRN MC SEE COMMENTS; Start 02/12/19 at 21:30; Stop 02/14/19 at 21:29 Sodium Chloride 1,000 ml @ 1,000 mls/hr 1X ONCE IV Last administered on 02/12/19at 22:05; Start 02/12/19 at 21:45; Stop 02/12/19 at 22:44; Status DC Piperacillin Sod/ Tazobactam Sod 3.375 gm/Sodium Chloride 50 ml @ 100 mls/hr 1X ONCE IV Last administered on 02/12/19at 22:05; Start 02/12/19 at 22:00; Stop 02/12/19 at 22:29; Status DC Ondansetron HCl (Zofran) 4 mg PRN Q8HRS PRN IV NAUSEA/VOMITING Last adminis tered on 02/13/19 01:36; Start 02/12/19 at 22:00; Stop 02/13/19 at 21:59 Labetalol HCl (Normodyne Iv Push) 5 mg 1X ONCE IVP Last administered on 02/12/19at 22:42; Start 02/12/19 at 22:30; Stop 02/12/19 at 22:31; Status DC Labetalol HCl (Normodyne Iv Push) 5 mg PRN Q10MIN PRN IVP HYPERTENSION, SEE COMMENTS; Start 02/12/19 at 22:30 Amitriptyline HCl (Elavil) 50 mg HS PO Last administered on 02/13/19 01:36; Start 02/13/19 at 00:45 Atorvastatin Calcium (Lipitor) 10 mg HS PO Last administered on 02/13/19 01:38; Start 02/13/19 at 00:45 Carvedilol (Coreg) 12.5 mg BIDWMEALS PO Last administered on 02/13/19 08:26; Start 02/13/19 at 00:45 Clonazepam (KlonoPIN) 0.5 mg BID PO Last administered on 02/13/19 08:26; Start 02/13/19 at 00:45 Losartan Potassium (Cozaar) 25 mg HS PO Last administered on 02/13/19 01:37; Start 02/13/19 at 00:45 Oxycodone/ Acetaminophen (Percocet 5/325) 1 tab TID PO ; Start 02/13/19 at 09:00; Stop 02/13/19 at 12:39; Status DC Lamotrigine (LaMICtal) 150 mg DAILY PO Last administered on 02/13/19 01:38; Start 02/13/19 at 00:45 Promethazine HCl (Phenergan) 25 mg PRN Q6HRS PRN PO NAUSEA/VOMITING; Start 02/13/19 at 00:45 Ropinirole HCl (Requip) 0.25 mg DAILY PO Last administered on 02/13/19 01:36; Start 02/13/19 at 00:45 Tizanidine HCl (Zanaflex) 4 mg PRN TID PRN PO spasms; Start 02/13/19 at 00:45 Morphine Sulfate (Morphine Sulfate) 2 mg PRN Q2HR PRN IV MODERATE - SEVERE PAIN Last administered on 02/13/19at 10:19; Start 02/13/19 at 00:45 Ketorolac Tromethamine (Toradol 30mg Vial) 30 mg PRN Q6HRS PRN IV MILD PAIN Last administered on 02/13/19at 08:27; Start 02/13/19 at 00:45; Stop 02/18/19 at 00:44 Sodium Chloride 1,000 ml @ 125 mls/hr Q8H IV Last administered on 02/13/19at 10:19; Start 02/13/19 at 01:30 Iohexol (Omnipaque 300 Mg/ml) 100 ml STK-MED ONCE .ROUTE ; Start 02/13/19 at 05:06; Stop 02/13/19 at 05:07; Status DC Piperacillin Sod/ Tazobactam Sod (Zosyn Per Pharmacy) 1 each PRN DAILY PRN MC SEE COMMENTS; Start 02/13/19 at 11:30 Piperacillin Sod/ Tazobactam Sod 3.375 gm/Sodium Chloride 50 ml @ 100 mls/hr Q6HRS IV Last administered on 02/13/19at 12:26; Start 02/13/19 at 12:00 Acetaminophen/ Hydrocodone Bitart (Lortab 7.5/325) 1 tab PRN Q6HRS PRN PO PAIN; Start 02/13/19 at 12:45 Active Scripts Active Amoxicillin 500 Mg Capsule 500 Mg PO TID 10 Days Percocet 5-325 Mg Tablet (Oxycodone/Acetaminophen) 1 Each Tablet 1 Tab PO TID Reported Amitriptyline Hcl 50 Mg Tablet 50 Mg PO HS Losartan Potassium (Losartan Potassium) 25 Mg Tablet 25 Mg PO HS Clonazepam 0.5 Mg Tablet 0.5 Mg PO BID Lamotrigine 150 Mg Tablet 150 Mg PO DAILY Carvedilol (Carvedilol) 12.5 Mg Tablet 12.5 Mg PO BIDWMEALS Promethazine Hcl 25 Mg Tablet 25 Mg PO Q6H PRN Atorvastatin Calcium 10 Mg Tablet 10 Mg PO HS Requip (Ropinirole Hcl) 0.5 Mg Tablet 0.25 Mg PO DAILY Tizanidine Hcl 4 Mg Tablet 1 Tab PO TID PRN Allergies Allergies: Coded Allergies: Sulfa (Sulfonamide Antibiotics) (Verified Allergy, Intermediate, Rash, 09/21/17) codeine (Verified Allergy, Intermediate, Rash, 09/21/17) Vitals VITALS Vital Signs Date Time Temp Pulse Resp B/P (MAP) Pulse Ox O2 Delivery O2 Flow Rate FiO2 02/13/19 14:36 98.1 77 18 125/75 (92) 96 Room Air 98.1 Labs Labs Laboratory Tests Test 02/12/19 19:20 02/12/19 20:35 White Blood Count 15.7 x10^3/uL (4.0-11.0) Red Blood Count 5.19 x10^6/uL (3.50-5.40) Hemoglobin 15.6 g/dL (12.0-15.5) Hematocrit 45.3 % (36.0-47.0) Mean Corpuscular Volume 87 fL (79-100) Mean Corpuscular Hemoglobin 30 pg (25-35) Mean Corpuscular Hemoglobin Concent 35 g/dL (31-37) Red Cell Distribution Width 12.8 % (11.5-14.5) Platelet Count 340 x10^3/uL (140-400) Neutrophils (%) (Auto) 80 % (31-73) Lymphocytes (%) (Auto) 15 % (24-48) Monocytes (%) (Auto) 3 % (0-9) Eosinophils (%) (Auto) 2 % (0-3) Basophils (%) (Auto) 0 % (0-3) Neutrophils # (Auto) 12.6 x10^3uL (1.8-7.7) Lymphocytes # (Auto) 2.3 x10^3/uL (1.0-4.8) Monocytes # (Auto) 0.5 x10^3/uL (0.0-1.1) Eosinophils # (Auto) 0.2 x10^3/uL (0.0-0.7) Basophils # (Auto) 0.1 x10^3/uL (0.0-0.2) Segmented Neutrophils % 65 % (35-66) Band Neutrophils % 19 % (0-9) Lymphocytes % 14 % (24-48) Monocytes % 2 % (0-10) Platelet Estimate Adequate (ADEQUATE) Prothrombin Time 13.7 SEC (11.7-14.0) Prothromb Time International Ratio 1.1 (0.8-1.1) Sodium Level 137 mmol/L (136-145) Potassium Level 3.8 mmol/L (3.5-5.1) Chloride Level 99 mmol/L (98-107) Carbon Dioxide Level 26 mmol/L (21-32) Anion Gap 12 (6-14) Blood Urea Nitrogen 9 mg/dL (7-20) Creatinine 1.1 mg/dL (0.6-1.0) Estimated GFR (Cockcroft-Gault) 54.2 BUN/Creatinine Ratio 8 (6-20) Glucose Level 185 mg/dL (70-99) Lactic Acid Level 2.8 mmol/L (0.4-2.0) Calcium Level 9.9 mg/dL (8.5-10.1) Total Bilirubin 0.7 mg/dL (0.2-1.0) Aspartate Amino Transf (AST/SGOT) 22 U/L (15-37) Alanine Aminotransferase (ALT/SGPT) 31 U/L (14-59) Alkaline Phosphatase 97 U/L (46-116) Troponin I Quantitative < 0.017 ng/mL (0.000-0.055) Total Protein 8.5 g/dL (6.4-8.2) Albumin 4.2 g/dL (3.4-5.0) Albumin/Globulin Ratio 1.0 (1.0-1.7) Lipase 75 U/L (73-393) Urine Collection Type Unknown Urine Color Yellow Urine Clarity Clear Urine pH 6.0 Urine Specific [place] <=1.005 Urine Protein Negative mg/dL (NEG-TRACE) Urine Glucose (UA) Negative mg/dL (NEG) Urine Ketones (Stick) Negative mg/dL (NEG) Urine Blood Negative (NEG) Urine Nitrite Negative (NEG) Urine Bilirubin Negative (NEG) Urine Urobilinogen Dipstick 0.2 mg/dL (0.2 mg/dL) Urine Leukocyte Esterase Negative (NEG) Urine RBC Occ /HPF (0-2) Urine WBC 0 /HPF (0-4) Urine Squamous Epithelial Cells Few /LPF Urine Bacteria 0 /HPF (0-FEW) Urine Hyaline Casts Many /HPF Urine Mucus Mod /LPF Laboratory Tests Test 02/12/19 19:20 02/12/19 20:35 White Blood Count 15.7 x10^3/uL (4.0-11.0) Red Blood Count 5.19 x10^6/uL (3.50-5.40) Hemoglobin 15.6 g/dL (12.0-15.5) Hematocrit 45.3 % (36.0-47.0) Mean Corpuscular Volume 87 fL (79-100) Mean Corpuscular Hemoglobin 30 pg (25-35) Mean Corpuscular Hemoglobin Concent 35 g/dL (31-37) Red Cell Distribution Width 12.8 % (11.5-14.5) Platelet Count 340 x10^3/uL (140-400) Neutrophils (%) (Auto) 80 % (31-73) Lymphocytes (%) (Auto) 15 % (24-48) Monocytes (%) (Auto) 3 % (0-9) Eosinophils (%) (Auto) 2 % (0-3) Basophils (%) (Auto) 0 % (0-3) Neutrophils # (Auto) 12.6 x10^3uL (1.8-7.7) Lymphocytes # (Auto) 2.3 x10^3/uL (1.0-4.8) Monocytes # (Auto) 0.5 x10^3/uL (0.0-1.1) Eosinophils # (Auto) 0.2 x10^3/uL (0.0-0.7) Basophils # (Auto) 0.1 x10^3/uL (0.0-0.2) Segmented Neutrophils % 65 % (35-66) Band Neutrophils % 19 % (0-9) Lymphocytes % 14 % (24-48) Monocytes % 2 % (0-10) Platelet Estimate Adequate (ADEQUATE) Prothrombin Time 13.7 SEC (11.7-14.0) Prothromb Time International Ratio 1.1 (0.8-1.1) Sodium Level 137 mmol/L (136-145) Potassium Level 3.8 mmol/L (3.5-5.1) Chloride Level 99 mmol/L (98-107) Carbon Dioxide Level 26 mmol/L (21-32) Anion Gap 12 (6-14) Blood Urea Nitrogen 9 mg/dL (7-20) Creatinine 1.1 mg/dL (0.6-1.0) Estimated GFR (Cockcroft-Gault) 54.2 BUN/Creatinine Ratio 8 (6-20) Glucose Level 185 mg/dL (70-99) Lactic Acid Level 2.8 mmol/L (0.4-2.0) Calcium Level 9.9 mg/dL (8.5-10.1) Total Bilirubin 0.7 mg/dL (0.2-1.0) Aspartate Amino Transf (AST/SGOT) 22 U/L (15-37) Alanine Aminotransferase (ALT/SGPT) 31 U/L (14-59) Alkaline Phosphatase 97 U/L (46-116) Troponin I Quantitative < 0.017 ng/mL (0.000-0.055) Total Protein 8.5 g/dL (6.4-8.2) Albumin 4.2 g/dL (3.4-5.0) Albumin/Globulin Ratio 1.0 (1.0-1.7) Lipase 75 U/L (73-393) Urine Collection Type Unknown Urine Color Yellow Urine Clarity Clear Urine pH 6.0 Urine Specific [place] <=1.005 Urine Protein Negative mg/dL (NEG-TRACE) Urine Glucose (UA) Negative mg/dL (NEG) Urine Ketones (Stick) Negative mg/dL (NEG) Urine Blood Negative (NEG) Urine Nitrite Negative (NEG) Urine Bilirubin Negative (NEG) Urine Urobilinogen Dipstick 0.2 mg/dL (0.2 mg/dL) Urine Leukocyte Esterase Negative (NEG) Urine RBC Occ /HPF (0-2) Urine WBC 0 /HPF (0-4) Urine Squamous Epithelial Cells Few /LPF Urine Bacteria 0 /HPF (0-FEW) Urine Hyaline Casts Many /HPF Urine Mucus Mod /LPF Assessment/Plan Assessment/Plan Epigastric abd pain- with N/v, most likely chronic cholecystitis. PUD, gastroenteritis, gastroparesis, and/or gastric volvulus in differential. Rec HIDA EF if abnl, then lap [place], otherwise EGD and GES Full note dictated ELOY HAYES MD February 13, 2019 14:55
[2019-02-13] MEDS: fentaNYL PF VIAL 100 MCG/2 ML VIAL IV PRN (15:19)
[2019-02-13] MEDS ORDERED: SINCALIDE IV ONE (16:00)
[2019-02-13] MEDS ORDERED: NORMAL SALINE IV ONE (16:00)
[2019-02-13 19:00] VITALS: BP 162/87
[2019-02-13 23:00] VITALS: BP 160/99
[2019-02-14 03:00] VITALS: BP 128/83
--- NOTE | 2019-02-14 05:34 | CONS ---
DATE OF CONSULTATION: 02/13/2019 REASON FOR CONSULTATION: Epigastric right upper quadrant abdominal pain. HISTORY OF PRESENT ILLNESS: The patient is a 43-year-old female with past medical history significant for diabetes, hypertension, hyperlipidemia, intracranial hypertension, status post hysterectomy, bilateral carpal tunnel surgery is seen with epigastric right upper quadrant abdominal pain, which progressively worsened leading to admission due to intractable nausea, vomiting as well as some diarrhea. No one else is presently ill. The diarrhea has resolved. The pain, however, is recurring at the time of the interview. Denies family history of gallbladder disease or peptic ulcer disease. States fatty and greasy foods have been more problematic. Ultrasound did reveal possibility of some sludge and CT scan possibly pericholecystic fluid. Consultation is requested. PAST MEDICAL AND SURGICAL HISTORY: Diabetes, hypertension, hyperlipidemia, intracranial hypertension, status post hysterectomy and bilateral carpal tunnel surgery. ALLERGIES: SULFA AND CODEINE. SOCIAL HISTORY: She does not drink or smoke: She is a [employer]. MEDICATIONS: Include promethazine, amoxicillin, tizanidine, atorvastatin, carvedilol, losartan, oxycodone, clonazepam, amitriptyline, and Requip. REVIEW OF SYSTEMS: As per records. PHYSICAL EXAMINATION: GENERAL: Reveals a well-nourished, well-developed female, who is alert and cooperative, in no acute distress. VITAL SIGNS: Temperature is 98.1, pulse 77, respiratory rate is 18, blood pressure is 125/75. HEENT: Reveals normocephalic, atraumatic head. Pupils and extraocular muscles are not tested. Sclerae anicteric. NECK: Supple. LUNGS: Clear. CARDIOVASCULAR: Reveals an S1, S2 without S3, S4 or appreciable murmur. ABDOMEN: Soft abdomen, epigastric tenderness, epigastrium to deep palpation without appreciable hepatosplenomegaly. EXTREMITIES: Reveals no cyanosis, clubbing or edema. LABORATORY STUDIES: Sodium 137, potassium 3.8, chloride 99, bicarbonate 26, BUN 9, creatinine 1.1, glucose 185. Lactate was 2.8 on admission. Calcium 9.9, total bilirubin 0.7, AST of 22, ALT of 31, alkaline phosphatase of 97, total protein 8.8, albumin 4.2, lipase 78. Ultrasound reveals sludge. CT scan, possible pericholecystic fluid. IMPRESSION AND PLAN: Abdominal pain with sludge, most likely secondary to chronic cholecystitis, gastroparesis, malignancy, peptic ulcer disease is certainly in the differential as well as volvulus. We will therefore recommend HIDA scan with ejection fraction. If this is abnormal, then laparoscopic cholecystectomy will be pursued; otherwise, EGD and gastric emptying study can be pursued early next week either as an inpatient or an outpatient. ELOY HAYES MD DR: IRIS/gerson JOB#: [id number] / [id number] ecc ,
[2019-02-14] MEDS: PIPERACILLIN/TAZOBACTAM 3.375 GM in IV NORMAL SALINE 50ML 50 ML IV SCH ×4 (06:00→23:32)
[2019-02-14] MEDS: KETOROLAC 30 MG/ML VIAL. IV PRN ×3 (06:03→18:05)
[2019-02-14 07:00] VITALS: BP 144/77
[2019-02-14] MEDS: lamoTRIgine 100 MG TABLET. PO SCH (08:20)
[2019-02-14] MEDS: clonazePAM 0.5 MG TABLET PO SCH ×2 (08:20→21:28)
[2019-02-14] MEDS: rOPINIRole 0.25 MG TABLET. PO SCH (08:20)
[2019-02-14] MEDS: IV NORMAL SALINE 1000ML BAG 1,000 ML IV SCH ×4 (08:22→21:31)
--- NOTE | 2019-02-14 09:38 | PDOC ---
SURGICAL PROGRESS NOTE Subjective continued epigastric, RUQ pain no further diarrhea severe reproduction of symptoms with CCK Vital Signs Vital Signs Date Time Temp Pulse Resp B/P (MAP) Pulse Ox O2 Delivery O2 Flow Rate FiO2 02/14/19 07:00 97.7 72 17 144/77 (99) 96 Room Air 97.7 I&O Intake and Output 02/14/19 07:00 Intake Total 881 ml Balance 881 ml Intake Oral 0 ml IV Total 881 ml # Voids 3 General: Alert, Oriented X3, Cooperative, No acute distress Abdomen: Soft, Other (epigastric, RUQ TTP) Labs Laboratory Tests Test 02/12/19 19:20 02/12/19 20:35 White Blood Count 15.7 x10^3/uL (4.0-11.0) Red Blood Count 5.19 x10^6/uL (3.50-5.40) Hemoglobin 15.6 g/dL (12.0-15.5) Hematocrit 45.3 % (36.0-47.0) Mean Corpuscular Volume 87 fL (79-100) Mean Corpuscular Hemoglobin 30 pg (25-35) Mean Corpuscular Hemoglobin Concent 35 g/dL (31-37) Red Cell Distribution Width 12.8 % (11.5-14.5) Platelet Count 340 x10^3/uL (140-400) Neutrophils (%) (Auto) 80 % (31-73) Lymphocytes (%) (Auto) 15 % (24-48) Monocytes (%) (Auto) 3 % (0-9) Eosinophils (%) (Auto) 2 % (0-3) Basophils (%) (Auto) 0 % (0-3) Neutrophils # (Auto) 12.6 x10^3uL (1.8-7.7) Lymphocytes # (Auto) 2.3 x10^3/uL (1.0-4.8) Monocytes # (Auto) 0.5 x10^3/uL (0.0-1.1) Eosinophils # (Auto) 0.2 x10^3/uL (0.0-0.7) Basophils # (Auto) 0.1 x10^3/uL (0.0-0.2) Segmented Neutrophils % 65 % (35-66) Band Neutrophils % 19 % (0-9) Lymphocytes % 14 % (24-48) Monocytes % 2 % (0-10) Platelet Estimate Adequate (ADEQUATE) Prothrombin Time 13.7 SEC (11.7-14.0) Prothromb Time International Ratio 1.1 (0.8-1.1) Sodium Level 137 mmol/L (136-145) Potassium Level 3.8 mmol/L (3.5-5.1) Chloride Level 99 mmol/L (98-107) Carbon Dioxide Level 26 mmol/L (21-32) Anion Gap 12 (6-14) Blood Urea Nitrogen 9 mg/dL (7-20) Creatinine 1.1 mg/dL (0.6-1.0) Estimated GFR (Cockcroft-Gault) 54.2 BUN/Creatinine Ratio 8 (6-20) Glucose Level 185 mg/dL (70-99) Lactic Acid Level 2.8 mmol/L (0.4-2.0) Calcium Level 9.9 mg/dL (8.5-10.1) Total Bilirubin 0.7 mg/dL (0.2-1.0) Aspartate Amino Transf (AST/SGOT) 22 U/L (15-37) Alanine Aminotransferase (ALT/SGPT) 31 U/L (14-59) Alkaline Phosphatase 97 U/L (46-116) Troponin I Quantitative < 0.017 ng/mL (0.000-0.055) Total Protein 8.5 g/dL (6.4-8.2) Albumin 4.2 g/dL (3.4-5.0) Albumin/Globulin Ratio 1.0 (1.0-1.7) Lipase 75 U/L (73-393) Urine Collection Type Unknown Urine Color Yellow Urine Clarity Clear Urine pH 6.0 Urine Specific [place] <=1.005 Urine Protein Negative mg/dL (NEG-TRACE) Urine Glucose (UA) Negative mg/dL (NEG) Urine Ketones (Stick) Negative mg/dL (NEG) Urine Blood Negative (NEG) Urine Nitrite Negative (NEG) Urine Bilirubin Negative (NEG) Urine Urobilinogen Dipstick 0.2 mg/dL (0.2 mg/dL) Urine Leukocyte Esterase Negative (NEG) Urine RBC Occ /HPF (0-2) Urine WBC 0 /HPF (0-4) Urine Squamous Epithelial Cells Few /LPF Urine Bacteria 0 /HPF (0-FEW) Urine Hyaline Casts Many /HPF Urine Mucus Mod /LPF Assessment/Plan HIDA reviewed, EF 1%, reproduction of symptoms with CCK D/w Dr Arriaza, will plan lap [place] in AM clears today, NPO after [place] VICKY,NAVYA Peña [employer] INTERVIEWER February 14, 2019 09:38
[2019-02-14 11:00] VITALS: BP 147/84
[2019-02-14] MEDS: fentaNYL PF VIAL 100 MCG/2 ML VIAL IV PRN (11:05)
[2019-02-14] MEDS: PROMETHAZINE 12.5 MG TABLET. PO PRN (11:05)
--- NOTE | 2019-02-14 11:51 | NUR ---
SW following pt for anticipated dc needs. Chart reviewed. Pt lives at home and no dc recommendations/SW needs noted at this time.
--- NOTE | 2019-02-14 14:06 | PDOC ---
Subjective: Subjective: Patient reports the abdominal pain has improved after she received Toradol. No fever, chest pain or sob. She has bowel movement. No melena or hematochezia. Objective: Vital Signs: Current Medications Medications (Trade) Dose Ordered Sig/Joey Route PRN Reason Start Time Stop Time Status Last Admin Dose Admin Sodium Chloride 1,000 ml @ 1,000 mls/hr 1X ONCE IV 02/12/19 20:00 02/12/19 20:59 DC 02/12/19 19:35 Ondansetron HCl (Zofran) 4 mg 1X ONCE IV 02/12/19 20:00 02/12/19 20:01 DC 02/12/19 19:35 Sodium Chloride 1,000 ml @ 1,000 mls/hr 1X ONCE IV 02/12/19 21:00 02/12/19 21:59 DC 02/12/19 20:47 Ketorolac Tromethamine (Toradol 30mg Vial) 30 mg 1X ONCE IV 02/12/19 20:45 02/12/19 20:46 DC 02/12/19 20:47 Iohexol (Omnipaque 300 Mg/ml) 60 ml 1X ONCE IV 02/12/19 21:30 02/12/19 21:31 DC 02/12/19 21:41 Info (CONTRAST GIVEN -- Rx MONITORING) 1 each PRN DAILY PRN MC SEE COMMENTS 02/12/19 21:30 02/14/19 21:29 Sodium Chloride 1,000 ml @ 1,000 mls/hr 1X ONCE IV 02/12/19 21:45 02/12/19 22:44 DC 02/12/19 22:05 Piperacillin Sod/ Tazobactam Sod 3.375 gm/Sodium Chloride 50 ml @ 100 mls/hr 1X ONCE IV 02/12/19 22:00 02/12/19 22:29 DC 02/12/19 22:05 Ondansetron HCl (Zofran) 4 mg PRN Q8HRS PRN IV NAUSEA/VOMITING 02/12/19 22:00 02/13/19 21:59 DC 02/13/19 17:09 Labetalol HCl (Normodyne Iv Push) 5 mg 1X ONCE IVP 02/12/19 22:30 02/12/19 22:31 DC 02/12/19 22:42 Labetalol HCl (Normodyne Iv Push) 5 mg PRN Q10MIN PRN IVP HYPERTENSION, SEE COMMENTS 02/12/19 22:30 Amitriptyline HCl (Elavil) 50 mg HS PO 02/13/19 00:45 02/13/19 21:51 Atorvastatin Calcium (Lipitor) 10 mg HS PO 02/13/19 00:45 02/13/19 21:52 Carvedilol (Coreg) 12.5 mg BIDWMEALS PO 02/13/19 00:45 02/13/19 21:51 Clonazepam (KlonoPIN) 0.5 mg BID PO 02/13/19 00:45 02/14/19 08:20 Losartan Potassium (Cozaar) 25 mg HS PO 02/13/19 00:45 02/13/19 21:52 Oxycodone/ Acetaminophen (Percocet 5/325) 1 tab TID PO 02/13/19 09:00 02/13/19 12:39 DC Lamotrigine (LaMICtal) 150 mg DAILY PO 02/13/19 00:45 02/14/19 08:20 Promethazine HCl (Phenergan) 25 mg PRN Q6HRS PRN PO NAUSEA/VOMITING 02/13/19 00:45 02/14/19 11:05 Ropinirole HCl (Requip) 0.25 mg DAILY PO 02/13/19 00:45 02/14/19 08:20 Tizanidine HCl (Zanaflex) 4 mg PRN TID PRN PO spasms 02/13/19 00:45 Morphine Sulfate (Morphine Sulfate) 2 mg PRN Q2HR PRN IV MODERATE - SEVERE PAIN 02/13/19 00:45 02/13/19 10:19 Ketorolac Tromethamine (Toradol 30mg Vial) 30 mg PRN Q6HRS PRN IV MILD PAIN 02/13/19 00:45 02/18/19 00:44 02/14/19 12:10 Sodium Chloride 1,000 ml @ 125 mls/hr Q8H IV 02/13/19 01:30 02/14/19 08:22 Iohexol (Omnipaque 300 Mg/ml) 100 ml STK-MED ONCE .ROUTE 02/13/19 05:06 02/13/19 05:07 DC Piperacillin Sod/ Tazobactam Sod (Zosyn Per Pharmacy) 1 each PRN DAILY PRN MC SEE COMMENTS 02/13/19 11:30 Piperacillin Sod/ Tazobactam Sod 3.375 gm/Sodium Chloride 50 ml @ 100 mls/hr Q6HRS IV 02/13/19 12:00 02/14/19 12:10 Acetaminophen/ Hydrocodone Bitart (Lortab 7.5/325) 1 tab PRN Q6HRS PRN PO PAIN 02/13/19 12:45 Fentanyl Citrate (Fentanyl 2ml Vial) 50 mcg PRN Q3HRS PRN IV PAIN 02/13/19 15:15 02/14/19 11:05 Sincalide 2.39 mcg/Sodium Chloride 30 ml @ 120 mls/hr 1X ONCE IV 02/13/19 16:00 02/13/19 16:14 DC 02/13/19 17:02 Cefazolin Sodium/ Dextrose 50 ml @ 100 mls/hr 1X PREOP PRN IV brazer electronic to or 02/15/19 06:00 02/15/19 18:00 Vital Signs Date Time Temp Pulse Resp B/P (MAP) Pulse Ox O2 Delivery O2 Flow Rate FiO2 02/14/19 11:35 16 98 Room Air 02/14/19 11:00 98.2 80 147/84 (785) 98.2 Imaging: [facility] [address] [place], [place] [id number] IMAGING REPORT Signed PATIENT: SLOANE CHI ACCOUNT: [id number] : 1975 LOCATION: ER AGE: 43 SEX: F EXAM STATUS: REG ER ORD. PHYSICIAN: MIRIAN GILBERT DO REASON: RUQ pain PROCEDURE: CT ABD PELV W/ IV CONTRST ONLY CT ABD PELV W/ IV CONTRST ONLY Indication: RUQ PAIN; OMNI 300, 60ML Exposure: One or more of the following individualized dose reduction techniques were utilized for this examination: 1. Automated exposure control 2. Adjustment of the mA and/or kV according to patient size 3. Use of iterative reconstruction technique. Technique: Intravenous contrast was given. No oral contrast per request. Lung bases are clear. Liver and spleen appear unremarkable. No evidence of adrenal mass. Pancreas appears unremarkable. Kidneys demonstrate symmetric enhancement without hydronephrosis or dominant mass. No calcified gallstone. Gallbladder is mildly distended and there is mild gallbladder wall thickening. The aorta is nonaneurysmal. Small aortocaval lymph nodes are identified measuring up to 8 mm in short axis, likely reactive. No pathologic lymph node enlargement is seen. The aorta is nonaneurysmal. No significant small bowel distention. No evidence of acute colitis. The appendix appears normal. No evidence of ascites or pneumoperitoneum. Mild degenerative spurring of the spine. No acute bone destruction. No evidence of pelvic mass. No significant urinary bladder wall thickening. IMPRESSION: 1. Mild gallbladder distention with wall thickening, suggestive of acute cholecystitis. No evidence of calcified stone. 2. No other acute findings. Electronically signed by: Waylon Cason MD (02/12/2019 10:00 PM) [facility] DICTATED and SIGNED BY: WAYLON CASON MD DATE: 02/12/192199 PE: GEN: NAD HEENT: Atraumatic, PERRLA LUNGS: CTAB HEART: RRR, no murmurs ABD: Mild direct tenderness in right upper quadrant area. No guarding or rebound tenderness. EXTREMITY: No edema SKIN: No rashes, no jaundice NEURO/PSYCH: A & O 3 A/P: A 43 years old female patient who presented with nausea, vomiting and epigastric abdominal pain. Labs unremarkable with no anemia and completely normal LFTs. Imaging with CT notable for gallbladder distention with wall thickening co ncerning for cholecystitis.No evidence of calcified stone. HID scan pending. Recommendations - IVFs and pain management. - PPI BID. - Await for HIDA scan. - Follow up with surgery for possible cholecystectomy. - We will consider EGD to rule out luminal process. GI available for any questions or concerns. Thank you for involving us in the care of this interesting patient. . MATTY ORTEGA MD February 14, 2019 14:06
[2019-02-14 15:00] VITALS: BP 174/81
[2019-02-14] MEDS: HYDROcodone/APAP 7.5/325MG 1 TAB TABLET PO PRN ×2 (16:00→21:30)
--- NOTE | 2019-02-14 16:46 | PDOC ---
PROGRESS NOTES Chief Complaint Chief Complaint Symptomatic cholecystitis. acute abd pain morbid obesity, BMI 45 History of Present Illness History of Present Illness Gen surg plans to take to OR cont current she feels a little imrpvoed, Vitals Vitals Vital Signs Date Time Temp Pulse Resp B/P (MAP) Pulse Ox O2 Delivery O2 Flow Rate FiO2 02/14/19 16:00 17 98 Room Air 02/14/19 15:00 97.9 83 174/81 (112) 97.9 Physical Exam General: Alert, Oriented X3, Cooperative, No acute distress Heart: Regular rate, Normal S1, Normal S2, No murmurs Abdomen: Soft, Other (epigastric, RUQ TTP) Extremities: No clubbing, No cyanosis Skin: No rashes, No breakdown Comment Review of Relevant I have reviewed the following items vielka (where applicable) has been applied. Labs Laboratory Tests Test 02/12/19 19:20 02/12/19 20:35 White Blood Count 15.7 x10^3/uL (4.0-11.0) Red Blood Count 5.19 x10^6/uL (3.50-5.40) Hemoglobin 15.6 g/dL (12.0-15.5) Hematocrit 45.3 % (36.0-47.0) Mean Corpuscular Volume 87 fL (79-100) Mean Corpuscular Hemoglobin 30 pg (25-35) Mean Corpuscular Hemoglobin Concent 35 g/dL (31-37) Red Cell Distribution Width 12.8 % (11.5-14.5) Platelet Count 340 x10^3/uL (140-400) Neutrophils (%) (Auto) 80 % (31-73) Lymphocytes (%) (Auto) 15 % (24-48) Monocytes (%) (Auto) 3 % (0-9) Eosinophils (%) (Auto) 2 % (0-3) Basophils (%) (Auto) 0 % (0-3) Neutrophils # (Auto) 12.6 x10^3uL (1.8-7.7) Lymphocytes # (Auto) 2.3 x10^3/uL (1.0-4.8) Monocytes # (Auto) 0.5 x10^3/uL (0.0-1.1) Eosinophils # (Auto) 0.2 x10^3/uL (0.0-0.7) Basophils # (Auto) 0.1 x10^3/uL (0.0-0.2) Segmented Neutrophils % 65 % (35-66) Band Neutrophils % 19 % (0-9) Lymphocytes % 14 % (24-48) Monocytes % 2 % (0-10) Platelet Estimate Adequate (ADEQUATE) Prothrombin Time 13.7 SEC (11.7-14.0) Prothromb Time International Ratio 1.1 (0.8-1.1) Sodium Level 137 mmol/L (136-145) Potassium Level 3.8 mmol/L (3.5-5.1) Chloride Level 99 mmol/L (98-107) Carbon Dioxide Level 26 mmol/L (21-32) Anion Gap 12 (6-14) Blood Urea Nitrogen 9 mg/dL (7-20) Creatinine 1.1 mg/dL (0.6-1.0) Estimated GFR (Cockcroft-Gault) 54.2 BUN/Creatinine Ratio 8 (6-20) Glucose Level 185 mg/dL (70-99) Lactic Acid Level 2.8 mmol/L (0.4-2.0) Calcium Level 9.9 mg/dL (8.5-10.1) Total Bilirubin 0.7 mg/dL (0.2-1.0) Aspartate Amino Transf (AST/SGOT) 22 U/L (15-37) Alanine Aminotransferase (ALT/SGPT) 31 U/L (14-59) Alkaline Phosphatase 97 U/L (46-116) Troponin I Quantitative < 0.017 ng/mL (0.000-0.055) Total Protein 8.5 g/dL (6.4-8.2) Albumin 4.2 g/dL (3.4-5.0) Albumin/Globulin Ratio 1.0 (1.0-1.7) Lipase 75 U/L (73-393) Urine Collection Type Unknown Urine Color Yellow Urine Clarity Clear Urine pH 6.0 Urine Specific [place] <=1.005 Urine Protein Negative mg/dL (NEG-TRACE) Urine Glucose (UA) Negative mg/dL (NEG) Urine Ketones (Stick) Negative mg/dL (NEG) Urine Blood Negative (NEG) Urine Nitrite Negative (NEG) Urine Bilirubin Negative (NEG) Urine Urobilinogen Dipstick 0.2 mg/dL (0.2 mg/dL) Urine Leukocyte Esterase Negative (NEG) Urine RBC Occ /HPF (0-2) Urine WBC 0 /HPF (0-4) Urine Squamous Epithelial Cells Few /LPF Urine Bacteria 0 /HPF (0-FEW) Urine Hyaline Casts Many /HPF Urine Mucus Mod /LPF Microbiology 02/12/19 Blood Culture - Preliminary, Resulted NO GROWTH AFTER 1 DAY Medications Current Medications Sodium Chloride 1,000 ml @ 1,000 mls/hr 1X ONCE IV Last administered on 02/12/19at 19:35; Start 02/12/19 at 20:00; Stop 02/12/19 at 20:59; Status DC Ondansetron HCl (Zofran) 4 mg 1X ONCE IV Last administered on 02/12/19at 19:35; Start 02/12/19 at 20:00; Stop 02/12/19 at 20:01; Status DC Sodium Chloride 1,000 ml @ 1,000 mls/hr 1X ONCE IV Last administered on 02/12/19at 20:47; Start 02/12/19 at 21:00; Stop 02/12/19 at 21:59; Status DC Ketorolac Tromethamine (Toradol 30mg Vial) 30 mg 1X ONCE IV Last administered on 02/12/19at 20:47; Start 02/12/19 at 20:45; Stop 02/12/19 at 20:46; Status DC Iohexol (Omnipaque 300 Mg/ml) 60 ml 1X ONCE IV Last administered on 02/12/19at 21:41; Start 02/12/19 at 21:30; Stop 02/12/19 at 21:31; Status DC Info (CONTRAST GIVEN -- Rx MONITORING) 1 each PRN DAILY PRN MC SEE COMMENTS; Start 02/12/19 at 21:30; Stop 02/14/19 at 21:29 Sodium Chloride 1,000 ml @ 1,000 mls/hr 1X ONCE IV Last administered on 02/12/19at 22:05; Start 02/12/19 at 21:45; Stop 02/12/19 at 22:44; Status DC Piperacillin Sod/ Tazobactam Sod 3.375 gm/Sodium Chloride 50 ml @ 100 mls/hr 1X ONCE IV Last administered on 02/12/19at 22:05; Start 02/12/19 at 22:00; Stop 02/12/19 at 22:29; Status DC Ondansetron HCl (Zofran) 4 mg PRN Q8HRS PRN IV NAUSEA/VOMITING Last administered on 02/13/19 17:09; Start 02/12/19 at 22:00; Stop 02/13/19 at 21:59; Status DC Labetalol HCl (Normodyne Iv Push) 5 mg 1X ONCE IVP Last administered on 02/12/19 22:42; Start 02/12/19 at 22:30; Stop 02/12/19 at 22:31; Status DC Labetalol HCl (Normodyne Iv Push) 5 mg PRN Q10MIN PRN IVP HYPERTENSION, SEE COMMENTS; Start 02/12/19 at 22:30 Amitriptyline HCl (Elavil) 50 mg HS PO Last administered on 02/13/19 21:51; St art 02/13/19 at 00:45 Atorvastatin Calcium (Lipitor) 10 mg HS PO Last administered on 02/13/19 21:52; Start 02/13/19 at 00:45 Carvedilol (Coreg) 12.5 mg BIDWMEALS PO Last administered on 02/13/19 21:51; Start 02/13/19 at 00:45 Clonazepam (KlonoPIN) 0.5 mg BID PO Last administered on 02/14/19 08:20; Start 02/13/19 at 00:45 Losartan Potassium (Cozaar) 25 mg HS PO Last administered on 02/13/19 21:52; Start 02/13/19 at 00:45 Oxycodone/ Acetaminophen (Percocet 5/325) 1 tab TID PO ; Start 02/13/19 at 09:00; Stop 02/13/19 at 12:39; Status DC Lamotrigine (LaMICtal) 150 mg DAILY PO Last administered on 02/14/19 08:20; Start 02/13/19 at 00:45 Promethazine HCl (Phenergan) 25 mg PRN Q6HRS PRN PO NAUSEA/VOMITING Last administered on 02/14/19 11:05; Start 02/13/19 at 00:45 Ropinirole HCl (Requip) 0.25 mg DAILY PO Last administered on 02/14/19 08:20; Start 02/13/19 at 00:45 Tizanidine HCl (Zanaflex) 4 mg PRN TID PRN PO spasms; Start 02/13/19 at 00:45 Morphine Sulfate (Morphine Sulfate) 2 mg PRN Q2HR PRN IV MODERATE - SEVERE PAIN Last administered on 02/13/19at 10:19; Start 02/13/19 at 00:45 Ketorolac Tromethamine (Toradol 30mg Vial) 30 mg PRN Q6HRS PRN IV MILD PAIN Last administered on 02/14/19at 12:10; Start 02/13/19 at 00:45; Stop 02/18/19 at 00:44 Sodium Chloride 1,000 ml @ 125 mls/hr Q8H IV Last administered on 02/14/19at 08:22; Start 02/13/19 at 01:30 Iohexol (Omnipaque 300 Mg/ml) 100 ml STK-MED ONCE .ROUTE ; Start 02/13/19 at 05:06; Stop 02/13/19 at 05:07; Status DC Piperacillin Sod/ Tazobactam Sod (Zosyn Per Pharmacy) 1 each PRN DAILY PRN MC SEE COMMENTS; Start 02/13/19 at 11:30 Piperacillin Sod/ Tazobactam Sod 3.375 gm/Sodium Chloride 50 ml @ 100 mls/hr Q6HRS IV Last administered on 02/14/19at 12:10; Start 02/13/19 at 12:00 Acetaminophen/ Hydrocodone Bitart (Lortab 7.5/325) 1 tab PRN Q6HRS PRN PO PAIN Last administered on 02/14/19at 16:00; Start 02/13/19 at 12:45 Fentanyl Citrate (Fentanyl 2ml Vial) 50 mcg PRN Q3HRS PRN IV PAIN Last administered on 02/14/19at 11:05; Start 02/13/19 at 15:15 Sincalide 2.39 mcg/Sodium Chloride 30 ml @ 120 mls/hr 1X ONCE IV Last administered on 02/13/19at 17:02; Start 02/13/19 at 16:00; Stop 02/13/19 at 16:14; Status DC Cefazolin Sodium/ Dextrose 50 ml @ 100 mls/hr 1X PREOP PRN IV ent consultant to or; Start 02/15/19 at 06:00; Stop 02/15/19 at 18:00 Lactobacillus Rhamnosus (Culturelle) 1 cap BID PO ; Start 02/14/19 at 21:00 Active Scripts Active Amoxicillin 500 Mg Capsule 500 Mg PO TID 10 Days Percocet 5-325 Mg Tablet (Oxycodone/Acetaminophen) 1 Each Tablet 1 Tab PO TID Reported Amitriptyline Hcl 50 Mg Tablet 50 Mg PO HS Losartan Potassium (Losartan Potassium) 25 Mg Tablet 25 Mg PO HS Clonazepam 0.5 Mg Tablet 0.5 Mg PO BID Lamotrigine 150 Mg Tablet 150 Mg PO DAILY Carvedilol (Carvedilol) 12.5 Mg Tablet 12.5 Mg PO BIDWMEALS Promethazine Hcl 25 Mg Tablet 25 Mg PO Q6H PRN Atorvastatin Calcium 10 Mg Tablet 10 Mg PO HS Requip (Ropinirole Hcl) 0.5 Mg Tablet 0.25 Mg PO DAILY Tizanidine Hcl 4 Mg Tablet 1 Tab PO TID PRN Vitals/I & O Vital Sign - Last 24 Hours 02/13/19 02/13/19 02/13/19 02/13/19 19:00 21:51 21:52 23:00 Temp 98.4 98.2 98.4 98.2 Pulse 78 78 78 83 Resp 18 18 B/P (MAP) 162/87 (112) 162/87 162/87 160/99 (119) Pulse Ox 95 92 02/14/19 02/14/19 02/14/19 02/14/19 03:00 07:00 11:00 11:05 Temp 97.7 97.7 98.2 97.7 97.7 98.2 Pulse 75 72 80 Resp 18 17 18 18 B/P (MAP) 128/83 (98) 144/77 (99) 147/84 (105) Pulse Ox 92 96 95 96 O2 Delivery Room Air Room Air Room Air 02/14/19 02/14/19 02/14/19 11:35 15:00 16:00 Temp 97.9 97.9 Pulse 83 Resp 16 18 17 B/P (MAP) 174/81 (112) Pulse Ox 98 96 98 O2 Delivery Room Air Room Air Room Air Intake and Output 02/13/19 02/13/19 02/14/19 15:00 23:00 07:00 Intake Total 0 ml 0 ml 881 ml Balance 0 ml 0 ml 881 ml LAURA WILLS MD February 14, 2019 16:46
[2019-02-14] MEDS: CARVEDILOL 12.5 MG TABLET. PO SCH (17:34)
[2019-02-14 19:20] VITALS: BP 146/83
[2019-02-14] MEDS: AMITRIPTYLINE HCL 25 MG TABLET. PO SCH (21:29)
[2019-02-14] MEDS: ATORVASTATIN CALCIUM 10 MG TABLET. PO SCH (21:29)
[2019-02-14] MEDS: LACTOBACILLUS RHAMNOSUS GG 1 CAPSULE. PO SCH (21:29)
[2019-02-14] MEDS: LOSARTAN POTASSIUM 25 MG TABLET. PO SCH (21:29)
[2019-02-14 23:53] VITALS: BP 142/98
[2019-02-15] MEDS: HYDROcodone/APAP 7.5/325MG 1 TAB TABLET PO PRN ×3 (03:24→22:39)
[2019-02-15 03:43] VITALS: BP 171/97
[2019-02-15 05:15] LABS: BASO % 0 % (0-3); EOS # 0.3 x10^3/uL (0.0-0.7); EOS % 6 % (0-3); HEMATOCRIT 37.1 % (36.0-47.0); HEMOGLOBIN 12.4 g/dL (12.0-15.5); LYMPH # 2.1 x10^3/uL (1.0-4.8); LYMPH % 39 % (24-48); MEAN CORPUSCULAR HEMOGLOBIN 30 pg (25-35); MEAN CORPUSCULAR HGB CONC 34 g/dL (31-37); MEAN CORPUSCULAR VOLUME 88 fL (79-100); MONO # 0.3 x10^3/uL (0.0-1.1); MONO % 7 % (0-9); NEUT # 2.5 x10^3uL (1.8-7.7); NEUT % 48 % (31-73); PLATELET COUNT 192 x10^3/uL (140-400); RED BLOOD COUNT 4.21 x10^6/uL (3.50-5.40); RED CELL DISTRIBUTION WIDTH 12.7 % (11.5-14.5); WHITE BLOOD COUNT 5.3 x10^3/uL (4.0-11.0)
[2019-02-15 05:39] LABS: ALBUMIN/GLOBULIN RATIO 0.9 (1.0-1.7); CALCIUM 8.7 mg/dL (8.5-10.1); CREATININE 0.7 mg/dL (0.6-1.0); GFR 91.3; POTASSIUM 3.6 mmol/L (3.5-5.1); TOTAL BILIRUBIN 0.4 mg/dL (0.2-1.0); TOTAL PROTEIN 6.3 g/dL (6.4-8.2)
[2019-02-15] MEDS ORDERED: DEXAMETHASONE SOD PHOS 4 MG/ML VIAL ONE (06:01)
[2019-02-15] MEDS ORDERED: IOHEXOL 300 MG/ML 50 ML VIAL. ONE (06:09)
[2019-02-15] MEDS ORDERED: BUPIVAC MPF-EPI 0.5%-1:200000 30 ML VIAL. ONE (06:09)
[2019-02-15] MEDS ORDERED: SURGICEL HEMOSTAT 4X8 EACH. ONE (06:09)
[2019-02-15] MEDS: PIPERACILLIN/TAZOBACTAM 3.375 GM in IV NORMAL SALINE 50ML 50 ML IV SCH ×4 (06:15→23:37)
[2019-02-15] MEDS: MORPHINE SULFATE 2 MG/ML VIAL. IV PRN ×3 (06:17→16:33)
[2019-02-15 06:47] VITALS: BP 149/75
[2019-02-15] MEDS: fentaNYL PF VIAL 100 MCG/2 ML VIAL IV PRN ×4 (06:51→23:41)
[2019-02-15] MEDS ORDERED: ROCURONIUM 50 MG/5 ML VIAL. ONE ×2 (06:56→08:25)
[2019-02-15] MEDS ORDERED: fentaNYL PF VIAL 100 MCG/2 ML VIAL ONE ×2 (06:56→09:37)
[2019-02-15] MEDS ORDERED: ONDANSETRON PF 4 MG/2 ML VIAL. ONE (06:58)
[2019-02-15] MEDS ORDERED: PROPOFOL 20 ML IV ONE (06:58)
[2019-02-15] MEDS ORDERED: SEVOFLURANE 61 TO 120 MINUTES. IH ONE (06:58)
[2019-02-15] MEDS ORDERED: LIDOCAINE 2% PF 5 ML VIAL. ONE (06:58)
[2019-02-15] MEDS ORDERED: IV RINGERS,LACTATED 1000ML 1,000 ML IV SCH (07:41)
[2019-02-15] MEDS ORDERED: ONDANSETRON PF 4 MG/2 ML VIAL. IV PRN (07:45)
[2019-02-15] MEDS ORDERED: fentaNYL PF VIAL 100 MCG/2 ML VIAL IV PRN (07:45)
[2019-02-15] MEDS ORDERED: LIDOCAINE 1% PF 2 ML VIAL. ID PRN (07:45)
[2019-02-15] MEDS ORDERED: HYDROmorphone 2 MG/ML VIAL IV PRN (07:45)
[2019-02-15] MEDS ORDERED: PROCHLORPERAZINE 10 MG/2 ML VIAL. IV PRN (07:45)
[2019-02-15] MEDS ORDERED: MORPHINE SULFATE 2 MG/ML VIAL. IV PRN (07:45)
[2019-02-15] MEDS ORDERED: ceFAZolin 1GM IVPB FOR OMNI 100 ML IV ONE (07:49)
[2019-02-15] MEDS ORDERED: MIDAZOLAM HCL/PF 2 MG/2 ML VIAL. ONE (07:51)
[2019-02-15] MEDS: CARVEDILOL 12.5 MG TABLET. PO SCH ×2 (08:00→17:46)
[2019-02-15] MEDS ORDERED: GLYCOPYRROLATE 1 MG/5 ML VIAL. ONE (08:24)
[2019-02-15] MEDS ORDERED: NEOSTIGMINE METHYLSULFATE 5 MG/5 ML SYRINGE. ONE (08:25)
[2019-02-15] MEDS ORDERED: KETOROLAC 30 MG/ML INJ FOR OR. INJ ONE (08:34)
[2019-02-15] MEDS: LACTOBACILLUS RHAMNOSUS GG 1 CAPSULE. PO SCH ×2 (09:00→20:43)
[2019-02-15] MEDS: rOPINIRole 0.25 MG TABLET. PO SCH (09:00)
[2019-02-15] MEDS: clonazePAM 0.5 MG TABLET PO SCH ×2 (09:00→20:43)
[2019-02-15] MEDS ORDERED: hydrALAZINE 20 MG/ML VIAL. ONE (09:03)
--- NOTE | 2019-02-15 09:23 | PDOC4 ---
Operative Note Operative Note Operative Note: Preoperative Diagnosis: Acalculous cholecystitis Postoperative Diagnosis: Same Procedure: Laparoscopic cholecystectomy with intraoperative cholangiogram Surgeons: Arsalan Anesthesia: GenCarla Estimated Blood Loss: 10 mL Specimen: Gallbladder to pathology Drains: None Complications: None Indications: The patient is a 43-year-old female who was admitted with abdominal pain. Her evaluation is consistent with acalculous cholecystitis. Surgical treatment was offered by means of a laparoscopic cholecystectomy. The risks of surgery were discussed which include bleeding, infection, bile duct injury, bile leak, pain, the potential for additional surgeries or procedures. The patient understands and would like to proceed. Description: The patient was taken to the operating room and laid supine on the operating table. General anesthesia was performed. The abdomen was prepped with ChloraPrep and draped in a standard surgical fashion. A small infraumbilical incision was made with a scalpel. The Veress needle was then inserted and a pneumoperitoneum was then created. A 5 mm trocar was then inserted and the laparoscope was introduced. There appeared to be significant omental adhesions which obscured visualization. In the right upper quadrant a 5 mm trocar was inserted under visualization. Inspection confirmed omental adhesions surrounding the umbilical port. Another 5 mm trochar was placed in the right lower quadrant. With a Harmonic Scalpel the omental adhesions were all taken down near the umbilicus to allow unimpeded use of the umbilical port. In the upper midabdomen an 11 mm trocar was inserted. The gallbladder was distended with edema and inflammatory change of the wall. Approximally 60 mL of bilious fluid was aspirated providing gallbladder decompression. The gallbladder was retracted cephalad. The cystic duct was dissected free from surrounding tissues. One clip was placed on the duct near the gallbladder junction. An opening was made in the duct and a cholangiocatheter placed within and secured with a clip. Using contrast dye and fluoroscopy an intraoperative cholangiogram was performed that appeared unremarkable. The clip and catheter were then withdrawn. Three clips were placed on the cystic duct and it was divided. The cystic artery was then identified, dissected free, doubly clipped and divided as well. The gallbladder was then mobilized away from the liver with cautery. The gallbladder was then placed in an endoscopic bag and extracted at the superior trocar site. The fascia there was closed with an 0 Vicryl suture. All blood and irrigation fluid was suctioned and hemostasis was good. The remaining ports were removed and the pneumoperitoneum was relieved. The skin incisions were injected with half percent Marcaine with epinephrine, and all were closed using 4-0 Monocryl suture. Steri-Strips and dressings were then applied. The patient tolerated the procedure well and was sent to the recovery room in stable condition. At the end of the case all counts were correct. ELOY CORLEY MD February 15, 2019 09:23
--- NOTE | 2019-02-15 09:39 | RAD ---
EXAM: Intraoperative cholangiogram. HISTORY: Post cystectomy. COMPARISON: None. FINDINGS: 3 fluoroscopic images were obtained during an intraoperative cholangiogram. The images demonstrate contrast opacification of the biliary tree and proximal duodenum. There is focal narrowing of the downstream common bile duct on the initial image which may be due to a spasm. This is not seen on subsequent images. No filling defect to suggest retained stone is seen. The total fluoroscopy time is not submitted with the images. IMPRESSION: Intraoperative angiogram demonstrating focal narrowing of the downstream common bile duct at the ampulla possibly due to a spasm. This is not seen on final images. No retained stone is seen. Electronically signed by: Alicia Blanco MD (02/15/2019 9:37 AM) [facility]
[2019-02-15] MEDS ORDERED: PROCHLORPERAZINE 10 MG/2 ML VIAL. ONE (09:40)
[2019-02-15 11:00] VITALS: BP 151/88
[2019-02-15] MEDS: PROMETHAZINE 12.5 MG TABLET. PO PRN (13:10)
[2019-02-15] MEDS: lamoTRIgine 100 MG TABLET. PO SCH (13:10)
--- NOTE | 2019-02-15 14:11 | PDOC ---
PROGRESS NOTES Chief Complaint Chief Complaint Symptomatic cholecystitis. acute abd pain morbid obesity, BMI 45 History of Present Illness History of Present Illness [place] [facility] today cont pain control will follow february soon Vitals Vitals Vital Signs Date Time Temp Pulse Resp B/P (MAP) Pulse Ox O2 Delivery O2 Flow Rate FiO2 02/15/19 13:41 Nasal Cannula 2.0 02/15/19 13:11 93 02/15/19 11:00 98.7 87 16 151/88 (109) 98.7 Physical Exam General: Alert, Oriented X3, Cooperative, No acute distress Heart: Regular rate, Normal S1, Normal S2, No murmurs Abdomen: Soft, Other (epigastric, RUQ TTP) Extremities: No clubbing, No cyanosis Skin: No rashes, No breakdown Labs LABS Laboratory Tests Test 02/15/19 04:45 White Blood Count 5.3 x10^3/uL (4.0-11.0) Red Blood Count 4.21 x10^6/uL (3.50-5.40) Hemoglobin 12.4 g/dL (12.0-15.5) Hematocrit 37.1 % (36.0-47.0) Mean Corpuscular Volume 88 fL (79-100) Mean Corpuscular Hemoglobin 30 pg (25-35) Mean Corpuscular Hemoglobin Concent 34 g/dL (31-37) Red Cell Distribution Width 12.7 % (11.5-14.5) Platelet Count 192 x10^3/uL (140-400) Neutrophils (%) (Auto) 48 % (31-73) Lymphocytes (%) (Auto) 39 % (24-48) Monocytes (%) (Auto) 7 % (0-9) Eosinophils (%) (Auto) 6 % (0-3) Basophils (%) (Auto) 0 % (0-3) Neutrophils # (Auto) 2.5 x10^3uL (1.8-7.7) Lymphocytes # (Auto) 2.1 x10^3/uL (1.0-4.8) Monocytes # (Auto) 0.3 x10^3/uL (0.0-1.1) Eosinophils # (Auto) 0.3 x10^3/uL (0.0-0.7) Basophils # (Auto) 0.0 x10^3/uL (0.0-0.2) Sodium Level 142 mmol/L (136-145) Potassium Level 3.6 mmol/L (3.5-5.1) Chloride Level 106 mmol/L (98-107) Carbon Dioxide Level 31 mmol/L (21-32) Anion Gap 5 (6-14) Blood Urea Nitrogen 5 mg/dL (7-20) Creatinine 0.7 mg/dL (0.6-1.0) Estimated GFR (Cockcroft-Gault) 91.3 BUN/Creatinine Ratio 7 (6-20) Glucose Level 92 mg/dL (70-99) Calcium Level 8.7 mg/dL (8.5-10.1) Total Bilirubin 0.4 mg/dL (0.2-1.0) Aspartate Amino Transf (AST/SGOT) 23 U/L (15-37) Alanine Aminotransferase (ALT/SGPT) 27 U/L (14-59) Alkaline Phosphatase 59 U/L (46-116) Total Protein 6.3 g/dL (6.4-8.2) Albumin 3.0 g/dL (3.4-5.0) Albumin/Globulin Ratio 0.9 (1.0-1.7) Comment Review of Relevant I have reviewed the following items vielka (where applicable) has been applied. Labs Laboratory Tests Test 02/15/19 04:45 White Blood Count 5.3 x10^3/uL (4.0-11.0) Red Blood Count 4.21 x10^6/uL (3.50-5.40) Hemoglobin 12.4 g/dL (12.0-15.5) Hematocrit 37.1 % (36.0-47.0) Mean Corpuscular Volume 88 fL (79-100) Mean Corpuscular Hemoglobin 30 pg (25-35) Mean Corpuscular Hemoglobin Concent 34 g/dL (31-37) Red Cell Distribution Width 12.7 % (11.5-14.5) Platelet Count 192 x10^3/uL (140-400) Neutrophils (%) (Auto) 48 % (31-73) Lymphocytes (%) (Auto) 39 % (24-48) Monocytes (%) (Auto) 7 % (0-9) Eosinophils (%) (Auto) 6 % (0-3) Basophils (%) (Auto) 0 % (0-3) Neutrophils # (Auto) 2.5 x10^3uL (1.8-7.7) Lymphocytes # (Auto) 2.1 x10^3/uL (1.0-4.8) Monocytes # (Auto) 0.3 x10^3/uL (0.0-1.1) Eosinophils # (Auto) 0.3 x10^3/uL (0.0-0.7) Basophils # (Auto) 0.0 x10^3/uL (0.0-0.2) Sodium Level 142 mmol/L (136-145) Potassium Level 3.6 mmol/L (3.5-5.1) Chloride Level 106 mmol/L (98-107) Carbon Dioxide Level 31 mmol/L (21-32) Anion Gap 5 (6-14) Blood Urea Nitrogen 5 mg/dL (7-20) Creatinine 0.7 mg/dL (0.6-1.0) Estimated GFR (Cockcroft-Gault) 91.3 BUN/Creatinine Ratio 7 (6-20) Glucose Level 92 mg/dL (70-99) Calcium Level 8.7 mg/dL (8.5-10.1) Total Bilirubin 0.4 mg/dL (0.2-1.0) Aspartate Amino Transf (AST/SGOT) 23 U/L (15-37) Alanine Aminotransferase (ALT/SGPT) 27 U/L (14-59) Alkaline Phosphatase 59 U/L (46-116) Total Protein 6.3 g/dL (6.4-8.2) Albumin 3.0 g/dL (3.4-5.0) Albumin/Globulin Ratio 0.9 (1.0-1.7) Laboratory Tests Test 02/15/19 04:45 White Blood Count 5.3 x10^3/uL (4.0-11.0) Red Blood Count 4.21 x10^6/uL (3.50-5.40) Hemoglobin 12.4 g/dL (12.0-15.5) Hematocrit 37.1 % (36.0-47.0) Mean Corpuscular Volume 88 fL (79-100) Mean Corpuscular Hemoglobin 30 pg (25-35) Mean Corpuscular Hemoglobin Concent 34 g/dL (31-37) Red Cell Distribution Width 12.7 % (11.5-14.5) Platelet Count 192 x10^3/uL (140-400) Neutrophils (%) (Auto) 48 % (31-73) Lymphocytes (%) (Auto) 39 % (24-48) Monocytes (%) (Auto) 7 % (0-9) Eosinophils (%) (Auto) 6 % (0-3) Basophils (%) (Auto) 0 % (0-3) Neutrophils # (Auto) 2.5 x10^3uL (1.8-7.7) Lymphocytes # (Auto) 2.1 x10^3/uL (1.0-4.8) Monocytes # (Auto) 0.3 x10^3/uL (0.0-1.1) Eosinophils # (Auto) 0.3 x10^3/uL (0.0-0.7) Basophils # (Auto) 0.0 x10^3/uL (0.0-0.2) Sodium Level 142 mmol/L (136-145) Potassium Level 3.6 mmol/L (3.5-5.1) Chloride Level 106 mmol/L (98-107) Carbon Dioxide Level 31 mmol/L (21-32) Anion Gap 5 (6-14) Blood Urea Nitrogen 5 mg/dL (7-20) Creatinine 0.7 mg/dL (0.6-1.0) Estimated GFR (Cockcroft-Gault) 91.3 BUN/Creatinine Ratio 7 (6-20) Glucose Level 92 mg/dL (70-99) Calcium Level 8.7 mg/dL (8.5-10.1) Total Bilirubin 0.4 mg/dL (0.2-1.0) Aspartate Amino Transf (AST/SGOT) 23 U/L (15-37) Alanine Aminotransferase (ALT/SGPT) 27 U/L (14-59) Alkaline Phosphatase 59 U/L (46-116) Total Protein 6.3 g/dL (6.4-8.2) Albumin 3.0 g/dL (3.4-5.0) Albumin/Globulin Ratio 0.9 (1.0-1.7) Microbiology 02/12/19 Blood Culture - Preliminary, Resulted NO GROWTH AFTER 2 DAYS Medications Current Medications Sodium Chloride 1,000 ml @ 1,000 mls/hr 1X ONCE IV Last administered on 02/12/19 19:35; Start 02/12/19 at 20:00; Stop 02/12/19 at 20:59; Status DC Ondansetron HCl (Zofran) 4 mg 1X ONCE IV Last administered on 02/12/19 19:35; Start 02/12/19 at 20:00; Stop 02/12/19 at 20:01; Status DC Sodium Chloride 1,000 ml @ 1,000 mls/hr 1X ONCE IV Last administered on 02/12/19at 20:47; Start 02/12/19 at 21:00; Stop 02/12/19 at 21:59; Status DC Ketorolac Tromethamine (Toradol 30mg Vial) 30 mg 1X ONCE IV Last administered on 02/12/19 20:47; Start 02/12/19 at 20:45; Stop 02/12/19 at 20:46; Status DC Iohexol (Omnipaque 300 Mg/ml) 60 ml 1X ONCE IV Last administered on 02/12/19at 21:41; Start 02/12/19 at 21:30; Stop 02/12/19 at 21:31; Status DC Info (CONTRAST GIVEN -- Rx MONITORING) 1 each PRN DAILY PRN MC SEE COMMENTS; Start 02/12/19 at 21:30; Stop 02/14/19 at 21:29; Status DC Sodium Chloride 1,000 ml @ 1,000 mls/hr 1X ONCE IV Last administered on 02/12/19 22:05; Start 02/12/19 at 21:45; Stop 02/12/19 at 22:44; Status DC Piperacillin Sod/ Tazobactam Sod 3.375 gm/Sodium Chloride 50 ml @ 100 mls/hr 1X ONCE IV Last administered on 02/12/19 22:05; Start 02/12/19 at 22:00; Stop 02/12/19 at 22:29; Status DC Ondansetron HCl (Zofran) 4 mg PRN Q8HRS PRN IV NAUSEA/VOMITING Last administered on 02/13/19at 17:09; Start 02/12/19 at 22:00; Stop 02/13/19 at 21:59; Status DC Labetalol HCl (Normodyne Iv Push) 5 mg 1X ONCE IVP Last administered on 02/12/19at 22:42; Start 02/12/19 at 22:30; Stop 02/12/19 at 22:31; Status DC Labetalol HCl (Normodyne Iv Push) 5 mg PRN Q10MIN PRN IVP HYPERTENSION, SEE COMMENTS; Start 02/12/19 at 22:30 Amitriptyline HCl (Elavil) 50 mg HS PO Last administered on 02/14/19 21:29; Start 02/13/19 at 00:45 Atorvastatin Calcium (Lipitor) 10 mg HS PO Last administered on 02/14/19 21:29; Start 02/13/19 at 00:45 Carvedilol (Coreg) 12.5 mg BIDWMEALS PO Last administered on 02/14/19 17:34; Start 02/13/19 at 00:45 Clonazepam (KlonoPIN) 0.5 mg BID PO Last administered on 02/14/19 21:28; Start 02/13/19 at 00:45 Losartan Potassium (Cozaar) 25 mg HS PO Last administered on 02/14/19 21:29; Start 02/13/19 at 00:45 Oxycodone/ Acetaminophen (Percocet 5/325) 1 tab TID PO ; Start 02/13/19 at 09:00; Stop 02/13/19 at 12:39; Status DC Lamotrigine (LaMICtal) 150 mg DAILY PO Last administered on 02/15/19 13:10; Start 02/13/19 at 00:45 Promethazine HCl (Phenergan) 25 mg PRN Q6HRS PRN PO NAUSEA/VOMITING Last administered on 02/15/19 13:10; Start 02/13/19 at 00:45 Ropinirole HCl (Requip) 0.25 mg DAILY PO Last administered on 02/14/19 08:20; Start 02/13/19 at 00:45 Tizanidine HCl (Zanaflex) 4 mg PRN TID PRN PO spasms; Start 02/13/19 at 00:45 Morphine Sulfate (Morphine Sulfate) 2 mg PRN Q2HR PRN IV MODERATE - SEVERE PAIN Last administered on 02/15/19 13:11; Start 02/13/19 at 00:45 Ketorolac Tromethamine (Toradol 30mg Vial) 30 mg PRN Q6HRS PRN IV MILD PAIN Last administered on 02/14/19 18:05; Start 02/13/19 at 00:45; Stop 02/18/19 at 00:44 Sodium Chloride 1,000 ml @ 125 mls/hr Q8H IV Last administered on 02/14/19 21:31; Start 02/13/19 at 01:30 Iohexol (Omnipaque 300 Mg/ml) 100 ml STK-MED ONCE .ROUTE Last administered on 02/15/19 08:24; Start 02/13/19 at 05:06; Stop 02/13/19 at 05:07; Status DC Piperacillin Sod/ Tazobactam Sod (Zosyn Per Pharmacy) 1 each PRN DAILY PRN MC SEE COMMENTS; Start 02/13/19 at 11:30 Piperacillin Sod/ Tazobactam Sod 3.375 gm/Sodium Chloride 50 ml @ 100 mls/hr Q6HRS IV Last administered on 02/15/19 13:12; Start 02/13/19 at 12:00 Acetaminophen/ Hydrocodone Bitart (Lortab 7.5/325) 1 tab PRN Q6HRS PRN PO PAIN Last administered on 02/15/19 03:24; Start 02/13/19 at 12:45 Fentanyl Citrate (Fentanyl 2ml Vial) 50 mcg PRN Q3HRS PRN IV PAIN Last administered on 02/15/19 06:51; Start 02/13/19 at 15:15 Sincalide 2.39 mcg/Sodium Chloride 30 ml @ 120 mls/hr 1X ONCE IV Last administered on 02/13/19 17:02; Start 02/13/19 at 16:00; Stop 02/13/19 at 16:14; Status DC Cefazolin Sodium/ Dextrose 50 ml @ 100 mls/hr 1X PREOP PRN IV 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 to or Last administered on 02/15/19at 07:50; Start 02/15/19 at 06:00; Stop 02/15/19 at 1 8:00 Lactobacillus Rhamnosus (Culturelle) 1 cap BID PO Last administered on 02/14/19 21:29; Start 02/14/19 at 21:00 Fentanyl Citrate (Fentanyl 2ml Vial) 100 mcg STK-MED ONCE .ROUTE ; Start 02/15/19 at 06:56; Stop 02/15/19 at 06:57; Status DC Rocuronium Iola (Zemuron) 50 mg STK-MED ONCE .ROUTE ; Start 02/15/19 at 06:56; Stop 02/15/19 at 06:57; Status DC Sevoflurane (Ultane) 60 ml STK-MED ONCE IH ; Start 02/15/19 at 06:58; Stop 02/15/19 at 06:59; Status DC Propofol 20 ml @ As Directed STK-MED ONCE IV ; Start 02/15/19 at 06:58; Stop 02/15/19 at 06:59; Status DC Lidocaine HCl (Lidocaine Pf 2% Vial) 5 ml STK-MED ONCE .ROUTE ; Start 02/15/19 at 06:58; Stop 02/15/19 at 06:59; Status DC Ondansetron HCl (Zofran) 4 mg STK-MED ONCE .ROUTE ; Start 02/15/19 at 06:58; Stop 02/15/19 at 06:59; Status DC Dexamethasone Sodium Phosphate (Decadron) 4 mg STK-MED ONCE .ROUTE ; Start 02/15/19 at 06:01; Stop 02/15/19 at 07:02; Status DC Bupivacaine HCl/ Epinephrine Bitart (Sensorcain-Mpf Epi 0.5%-[id number]) 30 ml STK-MED ONCE .ROUTE Last administered on 02/15/19at 08:24; Start 02/15/19 at 06:09; Stop 02/15/19 at 07:09; Status DC Iohexol (Omnipaque 300 Mg/ml) 50 ml STK-MED ONCE .ROUTE ; Start 02/15/19 at 06:09; Stop 02/15/19 at 07:09; Status DC Cellulose (Surgicel Hemostat 4x8) 1 each STK-MED ONCE .ROUTE ; Start 02/15/19 at 06:09; Stop 02/15/19 at 07:09; Status DC Ondansetron HCl (Zofran) 4 mg PRN Q6HRS PRN IV NAUSEA/VOMITING; Start 02/15/19 at 07:45; Stop 02/15/19 at 18:00 Fentanyl Citrate (Fentanyl 2ml Vial) 25 mcg PRN Q5MIN PRN IV MILD PAIN; Start 02/15/19 at 07:45; Stop 02/15/19 at 18:00 Fentanyl Citrate (Fentanyl 2ml Vial) 50 mcg PRN Q5MIN PRN IV MODERATE TO SEVERE PAIN Last administered on 02/15/19at 09:55; Start 02/15/19 at 07:45; Stop 02/15/19 at 18:00 Morphine Sulfate (Morphine Sulfate) 1 mg PRN Q10MIN PRN IV SEVERE PAIN; Start 02/15/19 at 07:45; Stop 02/15/19 at 18:00 Ringer's Solution 1,000 ml @ 30 mls/hr Q24H IV ; Start 02/15/19 at 07:41; Stop 02/15/19 at 19:40 Lidocaine HCl (Xylocaine-Mpf 1% 2ml Vial) 2 ml 1X PRN PRN ID IV START; Start 02/15/19 at 07:45; Stop 02/15/19 at 18:00 Hydromorphone HCl (Dilaudid) 0.5 mg PRN Q10MIN PRN IV SEV PAIN, Second choice; Start 02/15/19 at 07:45; Stop 02/15/19 at 18:00 Prochlorperazine Edisylate (Compazine) 5 mg PACU PRN PRN IV NAUSEA, MRX1 Last administered on 02/15/19at 09:41; Start 02/15/19 at 07:45; Stop 02/15/19 at 18:00 Cefazolin Sodium 100 ml @ As Directed STK-MED ONCE IV ; Start 02/15/19 at 07:49; Stop 02/15/19 at 07:50; Status DC Midazolam HCl (Versed) 2 mg STK-MED ONCE .ROUTE ; Start 02/15/19 at 07:51; Stop 02/15/19 at 07:52; Status DC Glycopyrrolate (Robinul) 1 mg STK-MED ONCE .ROUTE ; Start 02/15/19 at 08:24; Stop 02/15/19 at 08:25; Status DC Neostigmine Methylsulfate (Neostigmine Methylsulfate) 5 mg STK-MED ONCE .ROUTE ; Start 02/15/19 at 08:25; Stop 02/15/19 at 08:26; Status DC Rocuronium Iola (Zemuron) 50 mg STK-MED ONCE .ROUTE ; Start 02/15/19 at 08:25; Stop 02/15/19 at 08:26; Status DC Ketorolac Tromethamine (Toradol For Or Only) 30 mg STK-MED ONCE INJ ; Start 02/15/19 at 08:34; Stop 02/15/19 at 08:35; Status DC Hydralazine HCl (Apresoline Inj) 20 mg STK-MED ONCE .ROUTE ; Start 02/15/19 at 09:03; Stop 02/15/19 at 09:04; Status DC Oxycodone/ Acetaminophen (Percocet 5/325) 1 tab PRN Q4HRS PRN PO MODERATE PAIN; Start 02/15/19 at 09:30 Oxycodone/ Acetaminophen (Percocet 5/325) 2 tab PRN Q4HRS PRN PO SEVERE PAIN; Start 02/15/19 at 09:45 Fentanyl Citrate (Fentanyl 2ml Vial) 100 mcg STK-MED ONCE .ROUTE ; Start 02/15/19 at 09:37; Stop 02/15/19 at 09:38; Status DC Prochlorperazine Edisylate (Compazine) 10 mg STK-MED ONCE .ROUTE ; Start 02/15/19 at 09:40; Stop 02/15/19 at 09:41; Status DC Active Scripts Active Amoxicillin 500 Mg Capsule 500 Mg PO TID 10 Days Percocet 5-325 Mg Tablet (Oxycodone/Acetaminophen) 1 Each Tablet 1 Tab PO TID Reported Amitriptyline Hcl 50 Mg Tablet 50 Mg PO HS Losartan Potassium (Losartan Potassium) 25 Mg Tablet 25 Mg PO HS Clonazepam 0.5 Mg Tablet 0.5 Mg PO BID Lamotrigine 150 Mg Tablet 150 Mg PO DAILY Carvedilol (Carvedilol) 12.5 Mg Tablet 12.5 Mg PO BIDWMEALS Promethazine Hcl 25 Mg Tablet 25 Mg PO Q6H PRN Atorvastatin Calcium 10 Mg Tablet 10 Mg PO HS Requip (Ropinirole Hcl) 0.5 Mg Tablet 0.25 Mg PO DAILY Tizanidine Hcl 4 Mg Tablet 1 Tab PO TID PRN Vitals/I & O Vital Sign - Last 24 Hours 02/14/19 02/14/19 02/14/19 02/14/19 15:00 16:00 17:00 17:34 Temp 97.9 97.9 Pulse 83 83 Resp 18 17 B/P (MAP) 174/81 (112) 174/81 Pulse Ox 96 98 99 O2 Delivery Room Air Room Air 02/14/19 02/14/19 02/14/19 02/14/19 19:20 21:29 21:30 22:33 Temp 98.2 98.2 Pulse 75 75 Resp 20 18 17 B/P (MAP) 146/83 (104) 146/83 Pulse Ox 91 O2 Delivery Room Air Room Air 02/14/19 02/15/19 02/15/19 02/15/19 23:53 03:24 03:43 06:17 Temp 98.1 97.6 98.1 97.6 Pulse 84 78 Resp 20 16 20 14 B/P (MAP) 142/98 (113) 171/97 (121) Pulse Ox 95 94 O2 Delivery Room Air Room Air Room Air 02/15/19 02/15/19 02/15/19 02/15/19 06:47 06:51 07:21 09:18 Temp 98.5 97.4 98.5 97.4 Pulse 82 82 Resp 18 15 20 B/P (MAP) 149/75 (99) 162/76 Pulse Ox 96 O2 Delivery Room Air Room Air Room Air O2 Flow Rate 6 02/15/19 02/15/19 02/15/19 02/15/19 09:18 09:30 09:39 09:45 Temp 97.4 97.4 97.4 97.4 Pulse 92 92 Resp 18 18 18 B/P (MAP) 148/76 173/73 Pulse Ox 96 96 94 O2 Delivery Mask Simple Mask Simple Mask Nasal Cannula O2 Flow Rate 6 6 6.0 2 02/15/19 02/15/19 02/15/19 02/15/19 09:55 09:57 10:00 10:25 Temp 97.2 97.2 Pulse 88 Resp 18 18 B/P (MAP) 159/78 Pulse Ox 95 95 O2 Delivery Nasal Cannula Nasal Cannula Nasal Cannula Nasal Cannula O2 Flow Rate 2.0 2.0 2 2.0 02/15/19 02/15/19 02/15/19 11:00 13:11 13:41 Temp 98.7 98.7 Pulse 87 Resp 16 B/P (MAP) 151/88 (109) Pulse Ox 93 93 O2 Delivery Nasal Cannula Nasal Cannula Nasal Cannula O2 Flow Rate 2.0 2.0 2.0 Intake and Output 02/14/19 02/14/19 02/15/19 15:00 23:00 07:00 Intake Total 660 ml 1915 ml 350 ml Balance 660 ml 1915 ml 350 ml LAURA WILLS MD February 15, 2019 14:11
[2019-02-15] MEDS: IV NORMAL SALINE 1000ML BAG 1,000 ML IV SCH ×2 (14:23→22:35)
[2019-02-15 15:00] VITALS: BP 162/97
[2019-02-15 19:51] VITALS: BP 139/91
[2019-02-15] MEDS: ATORVASTATIN CALCIUM 10 MG TABLET. PO SCH (20:43)
[2019-02-15] MEDS: LOSARTAN POTASSIUM 25 MG TABLET. PO SCH (20:43)
[2019-02-15] MEDS: AMITRIPTYLINE HCL 25 MG TABLET. PO SCH (20:43)
[2019-02-15] MEDS: KETOROLAC 30 MG/ML VIAL. IV PRN (20:48)
[2019-02-15 23:36] VITALS: BP 120/74
[2019-02-16] MEDS: IV NORMAL SALINE 1000ML BAG 1,000 ML IV SCH ×3 (01:30→17:58)
[2019-02-16 03:26] VITALS: BP 153/76
[2019-02-16] MEDS: PIPERACILLIN/TAZOBACTAM 3.375 GM in IV NORMAL SALINE 50ML 50 ML IV SCH ×3 (06:06→17:57)
[2019-02-16 07:00] VITALS: BP 145/90
[2019-02-16] MEDS: HYDROcodone/APAP 7.5/325MG 1 TAB TABLET PO PRN ×3 (08:29→20:49)
[2019-02-16] MEDS: clonazePAM 0.5 MG TABLET PO SCH ×2 (08:30→20:44)
[2019-02-16] MEDS: LACTOBACILLUS RHAMNOSUS GG 1 CAPSULE. PO SCH ×2 (08:30→20:44)
[2019-02-16] MEDS: rOPINIRole 0.25 MG TABLET. PO SCH (08:30)
[2019-02-16] MEDS: CARVEDILOL 12.5 MG TABLET. PO SCH ×2 (08:31→17:56)
[2019-02-16] MEDS: lamoTRIgine 100 MG TABLET. PO SCH (08:31)
[2019-02-16] MEDS ORDERED: cloNIDine HCL 0.1 MG TABLET PO PRN (08:45)
--- NOTE | 2019-02-16 10:32 | RAD ---
HEPATOBILIARY SCAN WITH EJECTION FRACTION 5.3.19 History: Right lower quadrant abdominal pain, nausea. Procedure: Serial static images are obtained of the liver and biliary system in the frontal projection following IV administration of 5.5 mCi of Technetium 99m Choletec. After filling of the gallbladder, 2.39 mcg of sincalide was infused over 30 minutes and dynamic imaging continued over this period. The gallbladder ejection fraction was calculated. Findings: There is prompt hepatic clearance of tracer from the blood pool. There is homogeneous distribution throughout the liver. There is normal filling of the gallbladder and normal emptying into the biliary system and small bowel. However following administration of CCK analogue, poor emptying of the gallbladder appears to be present. Gallbladder ejection fraction is low measuring 1% (normal gallbladder EF is 35% or greater). IMPRESSION: 1. The cystic and common bile ducts are patent. 2. The gallbladder ejection fraction is abnormally low measuring 1%. Findings may indicate chronic cholecystitis or gallbladder dyskinesia.
[2019-02-16 11:00] VITALS: BP 142/85
[2019-02-16] MEDS ORDERED: OXYC1TAB15 PO (11:39)
[2019-02-16] MEDS ORDERED: PROM25TA10 PO (11:39)
--- NOTE | 2019-02-16 11:42 | PDOC ---
PROGRESS NOTES Chief Complaint Chief Complaint Symptomatic cholecystitis at this post laparoscopic cholecystectomy 02/15/19 GPC bacteremia 1 out of 2 bottles morbid obesity, BMI 45 History of Present Illness History of Present Illness she is feeling well Tolerating GI soft and ambulating about Dressing dry Good bowel sounds belly soft But RN called for GPC bacteremia 1 out of 2 bottles ? Contaminant No fevers no white count Plan: hold dc for now, consult iD - dw Susan ESR and CBC tmr Pain meds on chart Vitals Vitals Vital Signs Date Time Temp Pulse Resp B/P (MAP) Pulse Ox O2 Delivery O2 Flow Rate FiO2 02/16/19 11:00 98.3 81 18 142/85 (104) 93 Room Air 98.3 02/15/19 16:33 2.0 Physical Exam General: Alert, Oriented X3, Cooperative, No acute distress Heart: Regular rate, Normal S1, Normal S2, No murmurs Abdomen: Soft, Other (epigastric, RUQ TTP) Extremities: No clubbing, No cyanosis Skin: No rashes, No breakdown Review of Systems Review of Systems A 14 point ROS was completed with the following noted as positive: Other systems reviewed and negative. \CONSTITUTIONAL: No fever or chills EYES: No recent changes SKIN: No rash or itching CARDIOVASCULAR: No chest pain, syncope, palpitations, or edema RESPIRATORY: No SOB or cough GASTROINTESTINAL: No nausea, vomiting or abdominal pain NEUROLOGICAL: No headaches or weakness ENDOCRINE: No cold or heat intolerance GENITOURINARY: No urgency or frequency of urination MUSCULOSKELETAL: No back pain or joint pain LYMPHATICS: No enlarged lymph nodes PSYCHIATRIC: No anxiety or depression Comment Review of Relevant I have reviewed the following items vielka (where applicable) has been applied. Labs Laboratory Tests Test 02/15/19 04:45 White Blood Count 5.3 x10^3/uL (4.0-11.0) Red Blood Count 4.21 x10^6/uL (3.50-5.40) Hemoglobin 12.4 g/dL (12.0-15.5) Hematocrit 37.1 % (36.0-47.0) Mean Corpuscular Volume 88 fL (79-100) Mean Corpuscular Hemoglobin 30 pg (25-35) Mean Corpuscular Hemoglobin Concent 34 g/dL (31-37) Red Cell Distribution Width 12.7 % (11.5-14.5) Platelet Count 192 x10^3/uL (140-400) Neutrophils (%) (Auto) 48 % (31-73) Lymphocytes (%) (Auto) 39 % (24-48) Monocytes (%) (Auto) 7 % (0-9) Eosinophils (%) (Auto) 6 % (0-3) Basophils (%) (Auto) 0 % (0-3) Neutrophils # (Auto) 2.5 x10^3uL (1.8-7.7) Lymphocytes # (Auto) 2.1 x10^3/uL (1.0-4.8) Monocytes # (Auto) 0.3 x10^3/uL (0.0-1.1) Eosinophils # (Auto) 0.3 x10^3/uL (0.0-0.7) Basophils # (Auto) 0.0 x10^3/uL (0.0-0.2) Sodium Level 142 mmol/L (136-145) Potassium Level 3.6 mmol/L (3.5-5.1) Chloride Level 106 mmol/L (98-107) Carbon Dioxide Level 31 mmol/L (21-32) Anion Gap 5 (6-14) Blood Urea Nitrogen 5 mg/dL (7-20) Creatinine 0.7 mg/dL (0.6-1.0) Estimated GFR (Cockcroft-Gault) 91.3 BUN/Creatinine Ratio 7 (6-20) Glucose Level 92 mg/dL (70-99) Calcium Level 8.7 mg/dL (8.5-10.1) Total Bilirubin 0.4 mg/dL (0.2-1.0) Aspartate Amino Transf (AST/SGOT) 23 U/L (15-37) Alanine Aminotransferase (ALT/SGPT) 27 U/L (14-59) Alkaline Phosphatase 59 U/L (46-116) Total Protein 6.3 g/dL (6.4-8.2) Albumin 3.0 g/dL (3.4-5.0) Albumin/Globulin Ratio 0.9 (1.0-1.7) Microbiology 02/12/19 Blood Culture - Final, Complete Medications Current Medications Sodium Chloride 1,000 ml @ 1,000 mls/hr 1X ONCE IV Last administered on 02/12/19at 19:35; Start 02/12/19 at 20:00; Stop 02/12/19 at 20:59; Status DC Ondansetron HCl (Zofran) 4 mg 1X ONCE IV Last administered on 02/12/19at 19:35; Start 02/12/19 at 20:00; Stop 02/12/19 at 20:01; Status DC Sodium Chloride 1,000 ml @ 1,000 mls/hr 1X ONCE IV Last administered on 02/12/19at 20:47; Start 02/12/19 at 21:00; Stop 02/12/19 at 21:59; Status DC Ketorolac Tromethamine (Toradol 30mg Vial) 30 mg 1X ONCE IV Last administered on 02/12/19 20:47; Start 02/12/19 at 20:45; Stop 02/12/19 at 20:46; Status DC Iohexol (Omnipaque 300 Mg/ml) 60 ml 1X ONCE IV Last administered on 02/12/19at 21:41; Start 02/12/19 at 21:30; Stop 02/12/19 at 21:31; Status DC Info (CONTRAST GIVEN -- Rx MONITORING) 1 each PRN DAILY PRN MC SEE COMMENTS; Start 02/12/19 at 21:30; Stop 02/14/19 at 21:29; Status DC Sodium Chloride 1,000 ml @ 1,000 mls/hr 1X ONCE IV Last administered on 02/12/19at 22:05; Start 02/12/19 at 21:45; Stop 02/12/19 at 22:44; Status DC Piperacillin Sod/ Tazobactam Sod 3.375 gm/Sodium Chloride 50 ml @ 100 mls/hr 1X ONCE IV Last administered on 02/12/19at 22:05; Start 02/12/19 at 22:00; Stop 02/12/19 at 22:29; Status DC Ondansetron HCl (Zofran) 4 mg PRN Q8HRS PRN IV NAUSEA/VOMITING Last administered on 02/13/19at 17:09; Start 02/12/19 at 22:00; Stop 02/13/19 at 21:59; Status DC Labetalol HCl (Normodyne Iv Push) 5 mg 1X ONCE IVP Last administered on 02/12/19at 22:42; Start 02/12/19 at 22:30; Stop 02/12/19 at 22:31; Status DC Labetalol HCl (Normodyne Iv Push) 5 mg PRN Q10MIN PRN IVP HYPERTENSION, SEE COMMENTS; Start 02/12/19 at 22:30 Amitriptyline HCl (Elavil) 50 mg HS PO Last administered on 02/15/19 20:43; Start 02/13/19 at 00:45 Atorvastatin Calcium (Lipitor) 10 mg HS PO Last administered on 02/15/19 20:43; Start 02/13/19 at 00:45 Carvedilol (Coreg) 12.5 mg BIDWMEALS PO Last administered on 02/16/19 08:31; Start 02/13/19 at 00:45 Clonazepam (KlonoPIN) 0.5 mg BID PO Last administered on 02/16/19 08:30; Start 02/13/19 at 00:45 Losartan Potassium (Cozaar) 25 mg HS PO Last administered on 02/15/19 20:43; Start 02/13/19 at 00:45 Oxycodone/ Acetaminophen (Percocet 5/325) 1 tab TID PO ; Start 02/13/19 at 09:00; Stop 02/13/19 at 12:39; Status DC Lamotrigine (LaMICtal) 150 mg DAILY PO Last administered on 02/16/19 08:31; Start 02/13/19 at 00:45 Promethazine HCl (Phenergan) 25 mg PRN Q6HRS PRN PO NAUSEA/VOMITING Last administered on 02/15/19 13:10; Start 02/13/19 at 00:45 Ropinirole HCl (Requip) 0.25 mg DAILY PO Last administered on 02/16/19 08:30; Start 02/13/19 at 00:45 Tizanidine HCl (Zanaflex) 4 mg PRN TID PRN PO spasms; Start 02/13/19 at 00:45 Morphine Sulfate (Morphine Sulfate) 2 mg PRN Q2HR PRN IV MODERATE - SEVERE PAIN Last administered on 02/15/19 16:33; Start 02/13/19 at 00:45 Ketorolac Tromethamine (Toradol 30mg Vial) 30 mg PRN Q6HRS PRN IV MILD PAIN Last administered on 5/5/19at 20:48; Start 02/13/19 at 00:45; Stop 02/18/19 at 00:44 Sodium Chloride 1,000 ml @ 125 mls/hr Q8H IV Last administered on 02/16/19 08:40; Start 02/13/19 at 01:30 Iohexol (Omnipaque 300 Mg/ml) 100 ml STK-MED ONCE .ROUTE Last administered on 02/15/19 08:24; Start 02/13/19 at 05:06; Stop 02/13/19 at 05:07; Status DC Piperacillin Sod/ Tazobactam Sod (Zosyn Per Pharmacy) 1 each PRN DAILY PRN MC SEE COMMENTS; Start 02/13/19 at 11:30 Piperacillin Sod/ Tazobactam Sod 3.375 gm/Sodium Chloride 50 ml @ 100 mls/hr Q6HRS IV Last administered on 02/16/19 06:06; Start 02/13/19 at 12:00 Acetaminophen/ Hydrocodone Bitart (Lortab 7.5/325) 1 tab PRN Q6HRS PRN PO PAIN Last administered on 02/16/19 08:29; Start 02/13/19 at 12:45 Fentanyl Citrate (Fentanyl 2ml Vial) 50 mcg PRN Q3HRS PRN IV PAIN Last administered on 02/15/19 23:41; Start 02/13/19 at 15:15 Sincalide 2.39 mcg/Sodium Chloride 30 ml @ 120 mls/hr 1X ONCE IV Last administered on 02/13/19 17:02; Start 02/13/19 at 16:00; Stop 02/13/19 at 16:14; Status DC Cefazolin Sodium/ Dextrose 50 ml @ 100 mls/hr 1X PREOP PRN IV concrete technician to or Last administered on 02/15/19at 07:50; Start 02/15/19 at 06:00; Stop 02/15/19 at 18:00; Status DC Lactobacillus Rhamnosus (Culturelle) 1 cap BID PO Last administered on 02/16/19at 08:30; Start 02/14/19 at 21:00 Fentanyl Citrate (Fentanyl 2ml Vial) 100 mcg STK-MED ONCE .ROUTE ; Start 02/15/19 at 06:56; Stop 02/15/19 at 06:57; Status DC Rocuronium [place] (Zemuron) 50 mg STK-MED ONCE .ROUTE ; Start 02/15/19 at 06:56; Stop 02/15/19 at 06:57; Status DC Sevoflurane (Ultane) 60 ml STK-MED ONCE IH ; Start 02/15/19 at 06:58; Stop 02/15/19 at 06:59; Status DC Propofol 20 ml @ As Directed STK-MED ONCE IV ; Start 02/15/19 at 06:58; Stop 02/15/19 at 06:59; Status DC Lidocaine HCl (Lidocaine Pf 2% Vial) 5 ml STK-MED ONCE .ROUTE ; Start 02/15/19 at 06:58; Stop 02/15/19 at 06:59; Status DC Ondansetron HCl (Zofran) 4 mg STK-MED ONCE .ROUTE ; Start 02/15/19 at 06:58; Stop 02/15/19 at 06:59; Status DC Dexamethasone Sodium Phosphate (Decadron) 4 mg STK-MED ONCE .ROUTE ; Start 02/15/19 at 06:01; Stop 02/15/19 at 07:02; Status DC Bupivacaine HCl/ Epinephrine Bitart (Sensorcain-Mpf Epi 0.5%-1:[id number]) 30 ml STK-MED ONCE .ROUTE Last administered on 02/15/19at 08:24; Start 02/15/19 at 06:09; Stop 02/15/19 at 07:09; Status DC Iohexol (Omnipaque 300 Mg/ml) 50 ml STK-MED ONCE .ROUTE ; Start 02/15/19 at 06:09; Stop 02/15/19 at 07:09; Status DC Cellulose (Surgicel Hemostat 4x8) 1 each STK-MED ONCE .ROUTE ; Start 02/15/19 at 06:09; Stop 02/15/19 at 07:09; Status DC Ondansetron HCl (Zofran) 4 mg PRN Q6HRS PRN IV NAUSEA/VOMITING; Start 02/15/19 at 07:45; Stop 02/15/19 at 18:00; Status DC Fentanyl Citrate (Fentanyl 2ml Vial) 25 mcg PRN Q5MIN PRN IV MILD PAIN; Start 02/15/19 at 07:45; Stop 02/15/19 at 18:00; Status DC Fentanyl Citrate (Fentanyl 2ml Vial) 50 mcg PRN Q5MIN PRN IV MODERATE TO SEVERE PAIN Last administered on 02/15/19at 09:55; Start 02/15/19 at 07:45; Stop 02/15/19 at 18:00; Status DC Morphine Sulfate (Morphine Sulfate) 1 mg PRN Q10MIN PRN IV SEVERE PAIN; Start 02/15/19 at 07:45; Stop 02/15/19 at 18:00; Status DC Ringer's Solution 1,000 ml @ 30 mls/hr Q24H IV ; Start 02/15/19 at 07:41; Stop 02/15/19 at 19:40; Status DC Lidocaine HCl (Xylocaine-Mpf 1% 2ml Vial) 2 ml 1X PRN PRN ID IV START; Start 02/15/19 at 07:45; Stop 02/15/19 at 18:00; Status DC Hydromorphone HCl (Dilaudid) 0.5 mg PRN Q10MIN PRN IV SEV PAIN, Second choice; Start 02/15/19 at 07:45; Stop 02/15/19 at 18:00; Status DC Prochlorperazine Edisylate (Compazine) 5 mg PACU PRN PRN IV NAUSEA, MRX1 Last a dministered on 02/15/19at 09:41; Start 02/15/19 at 07:45; Stop 02/15/19 at 18:00; Status DC Cefazolin Sodium 100 ml @ As Directed STK-MED ONCE IV ; Start 02/15/19 at 07:49; Stop 02/15/19 at 07:50; Status DC Midazolam HCl (Versed) 2 mg STK-MED ONCE .ROUTE ; Start 02/15/19 at 07:51; Stop 02/15/19 at 07:52; Status DC Glycopyrrolate (Robinul) 1 mg STK-MED ONCE .ROUTE ; Start 02/15/19 at 08:24; Stop 02/15/19 at 08:25; Status DC Neostigmine Methylsulfate (Neostigmine Methylsulfate) 5 mg STK-MED ONCE .ROUTE ; Start 02/15/19 at 08:25; Stop 02/15/19 at 08:26; Status DC Rocuronium [place] (Zemuron) 50 mg STK-MED ONCE .ROUTE ; Start 02/15/19 at 08:25; Stop 02/15/19 at 08:26; Status DC Ketorolac Tromethamine (Toradol For Or Only) 30 mg STK-MED ONCE INJ ; Start 02/15/19 at 08:34; Stop 02/15/19 at 08:35; Status DC Hydralazine HCl (Apresoline Inj) 20 mg STK-MED ONCE .ROUTE ; Start 02/15/19 at 09:03; Stop 02/15/19 at 09:04; Status DC Oxycodone/ Acetaminophen (Percocet 5/325) 1 tab PRN Q4HRS PRN PO MODERATE PAIN; Start 02/15/19 at 09:30 Oxycodone/ Acetaminophen (Percocet 5/325) 2 tab PRN Q4HRS PRN PO SEVERE PAIN; Start 02/15/19 at 09:45 Fentanyl Citrate (Fentanyl 2ml Vial) 100 mcg STK-MED ONCE .ROUTE ; Start 02/15/19 at 09:37; Stop 02/15/19 at 09:38; Status DC Prochlorperazine Edisylate (Compazine) 10 mg STK-MED ONCE .ROUTE ; Start 02/15/19 at 09:40; Stop 02/15/19 at 09:41; Status DC Clonidine HCl (Catapres) 0.1 mg PRN Q1HR PRN PO HYPERTENSION, SEE COMMENTS; Start 02/16/19 at 08:45 Active Scripts Active Promethazine Hcl 25 Mg Tablet 25 Mg PO Q6H PRN MDD 1 Percocet 5-325 Mg Tablet (Oxycodone/Acetaminophen) 1 Each Tablet 1 Tab PO TID MDD 1 Amoxicillin 500 Mg Capsule 500 Mg PO TID 10 Days Reported Amitriptyline Hcl 50 Mg Tablet 50 Mg PO HS Losartan Potassium (Losartan Potassium) 25 Mg Tablet 25 Mg PO HS Clonazepam 0.5 Mg Tablet 0.5 Mg PO BID Lamotrigine 150 Mg Tablet 150 Mg PO DAILY Carvedilol (Carvedilol) 12.5 Mg Tablet 12.5 Mg PO BIDWMEALS Atorvastatin Calcium 10 Mg Tablet 10 Mg PO HS Requip (Ropinirole Hcl) 0.5 Mg Tablet 0.25 Mg PO DAILY Tizanidine Hcl 4 Mg Tablet 1 Tab PO TID PRN Vitals/I & O Vital Sign - Last 24 Hours 02/15/19 02/15/19 02/15/19 02/15/19 13:11 13:41 14:15 15:00 Temp 98.2 98.2 Pulse 100 Resp 16 B/P (MAP) 162/97 (118) Pulse Ox 93 94 O2 Delivery Nasal Cannula Nasal Cannula Nasal Cannula O2 Flow Rate 2.0 2.0 2.0 2.0 02/15/19 02/15/19 02/15/19 02/15/19 15:15 16:33 17:03 17:46 Pulse 100 B/P (MAP) 162/97 O2 Delivery Nasal Cannula Nasal Cannula Nasal Cannula O2 Flow Rate 2.0 2.0 02/15/19 02/15/19 02/15/19 02/15/19 19:51 20:43 22:39 23:36 Temp 98.2 98.2 98.2 98.2 Pulse 107 107 99 Resp 18 18 B/P (MAP) 139/91 (107) 139/91 120/74 (89) Pulse Ox 94 92 O2 Delivery Room Air Room Air Room Air 02/15/19 02/16/19 02/16/19 02/16/19 23:41 03:26 07:00 08:29 Temp 98.1 98.0 98.1 98.0 Pulse 96 94 Resp 18 18 18 B/P (MAP) 153/76 (101) 145/90 (108) Pulse Ox 93 94 94 O2 Delivery Room Air Room Air Room Air Nasal Cannula 02/16/19 02/16/19 08:31 11:00 Temp 98.3 98.3 Pulse 94 81 Resp 18 B/P (MAP) 145/90 142/85 (104) Pulse Ox 93 O2 Delivery Room Air Intake and Output 02/15/19 02/15/19 02/16/19 15:00 23:00 07:00 Intake Total 290 ml 2368 ml 500 ml Output Total 10 ml Balance 280 ml 2368 ml 500 ml BARTOLO BARRON MD February 16, 2019 11:42
[2019-02-16] MEDS: PROMETHAZINE 12.5 MG TABLET. PO PRN (12:03)
[2019-02-16] MEDS: KETOROLAC 30 MG/ML VIAL. IV PRN (12:03)
--- NOTE | 2019-02-16 12:19 | PDOC ---
Infectious Disease Note Vital Sign Vital Signs Vital Signs Date Time Temp Pulse Resp B/P (MAP) Pulse Ox O2 Delivery O2 Flow Rate FiO2 02/16/19 11:00 98.3 81 18 142/85 (104) 93 Room Air 98.3 02/15/19 16:33 2.0 Labs Micro BLOOD CULTURE Final GRAM POSITIVE COCCI IN CLUSTERS IN 1 OF 2 BOTTLES OF A SINGLE SET COLLECTED. CALLED TO MANAV MORIN 6S 02/16/19 AT 0802 BY Yusef SIMPSON. CULTURE HAS BEEN SENT TO [facility] FOR FURTHER IDENTIFICATION. Objective Assessment GPC bacteremia (1 of 2 bottles) from 02/12, likely contaminant s/p lap cholecystectomy, 02/15 pre-op dexamethasone & Cefazolin Leukocytosis, better Diarrhea Lactic acidosis Morbid obesity, BMI 44 Diabetes HTN Nausea and vomiting Plan Plan of Care cont Zosyn since 02/13 awaiting GPC ID will dose one time vanc f/u am labs and cults Maintain aspiration precaution Pain management per primary D/w Dr. Salvador Thank you [phone] Patient seen, examined, Chart,labs /micro and radiology reviewed I agree with above. Assessment and plan was coformulated with DINING ROOM TABLES SET UP ATTENDANT. NOHEMI FONTAINE APRN February 16, 2019 12:19 KIRIT MACHUCA MD February 16, 2019 13:49
--- NOTE | 2019-02-16 12:21 | PDOC ---
NAVYA PERRY AMMONIA SOLUTION PREPARER 02/16/19 1221: SURGICAL PROGRESS NOTE Subjective nausea + pain Vital Signs Vital Signs Date Time Temp Pulse Resp B/P (MAP) Pulse Ox O2 Delivery O2 Flow Rate FiO2 02/16/19 11:00 98.3 81 18 142/85 (104) 93 Room Air 98.3 02/15/19 16:33 2.0 I&O Intake and Output 02/16/19 07:00 Intake Total 3158 ml Output Total 10 ml Balance 3148 ml Intake Oral 1160 ml IV Total 1998 ml Output Estimated Blood Loss 10 ml # Voids 4 General: Alert, Oriented X3, Cooperative, No acute distress Abdomen: Soft, Other (lap dressings dry) Labs Laboratory Tests Test 02/15/19 04:45 White Blood Count 5.3 x10^3/uL (4.0-11.0) Red Blood Count 4.21 x10^6/uL (3.50-5.40) Hemoglobin 12.4 g/dL (12.0-15.5) Hematocrit 37.1 % (36.0-47.0) Mean Corpuscular Volume 88 fL (79-100) Mean Corpuscular Hemoglobin 30 pg (25-35) Mean Corpuscular Hemoglobin Concent 34 g/dL (31-37) Red Cell Distribution Width 12.7 % (11.5-14.5) Platelet Count 192 x10^3/uL (140-400) Neutrophils (%) (Auto) 48 % (31-73) Lymphocytes (%) (Auto) 39 % (24-48) Monocytes (%) (Auto) 7 % (0-9) Eosinophils (%) (Auto) 6 % (0-3) Basophils (%) (Auto) 0 % (0-3) Neutrophils # (Auto) 2.5 x10^3uL (1.8-7.7) Lymphocytes # (Auto) 2.1 x10^3/uL (1.0-4.8) Monocytes # (Auto) 0.3 x10^3/uL (0.0-1.1) Eosinophils # (Auto) 0.3 x10^3/uL (0.0-0.7) Basophils # (Auto) 0.0 x10^3/uL (0.0-0.2) Sodium Level 142 mmol/L (136-145) Potassium Level 3.6 mmol/L (3.5-5.1) Chloride Level 106 mmol/L (98-107) Carbon Dioxide Level 31 mmol/L (21-32) Anion Gap 5 (6-14) Blood Urea Nitrogen 5 mg/dL (7-20) Creatinine 0.7 mg/dL (0.6-1.0) Estimated GFR (Cockcroft-Gault) 91.3 BUN/Creatinine Ratio 7 (6-20) Glucose Level 92 mg/dL (70-99) Calcium Level 8.7 mg/dL (8.5-10.1) Total Bilirubin 0.4 mg/dL (0.2-1.0) Aspartate Amino Transf (AST/SGOT) 23 U/L (15-37) Alanine Aminotransferase (ALT/SGPT) 27 U/L (14-59) Alkaline Phosphatase 59 U/L (46-116) Total Protein 6.3 g/dL (6.4-8.2) Albumin 3.0 g/dL (3.4-5.0) Albumin/Globulin Ratio 0.9 (1.0-1.7) Assessment/Plan s/p lap [place] d/w IPC-+ BC, as per primary ELOY CORLEY MD 02/18/19 0737: SURGICAL PROGRESS NOTE Assessment/Plan Agree with above NAVYA PERRY AMMONIA SOLUTION PREPARER February 16, 2019 12:21 ELOY CORLEY MD February 18, 2019 07:37
--- NOTE | 2019-02-16 13:13 | CONS ---
DATE OF CONSULTATION: 02/16/2019 REFERRING PHYSICIAN: Dr. Salvador. REASON FOR CONSULTATION: Positive blood cultures. HISTORY OF PRESENT ILLNESS: This patient is a 43-year-old female with a PMH; morbid obesity, diabetes, fibromyalgia, hypercholesterolemia and hypertension. She presented on 02/12/2019 with complaints of right-sided abdominal pain with radiation to shoulder area. She had elevated WBC count of 15,700 and lactic acid of 2.8. An ultrasound showed gallbladder findings suggestive of cholecystitis. She had a hepatobiliary scan with ejection fraction measuring 1% suggesting chronic cholecystitis or gallbladder dyskinesia. On 02/15/2019, she was taken to the OR and underwent a laparoscopic cholecystectomy with intraoperative cholangiogram. Postop, she has been doing well. She is now tolerating a soft diet. She remains afebrile and her white blood cell count has returned to normal. Her blood cultures from 02/12/2019 have returned today with gram-positive cocci in clusters, 1 out of 2 bottles; hence ID consult. PAST MEDICAL HISTORY: Morbid obesity, hypercholesterolemia, hypertension, fibromyalgia, diabetes, bipolar disorder, depression, anxiety, anemia, cervical cancer status post chemotherapy, idiopathic intracranial hypertension and restless legs syndrome. PAST SURGICAL HISTORY: Laparoscopic cholecystectomy on 02/15/2019. Hysterectomy. Bilateral carpal tunnel syndrome. FAMILY HISTORY: Positive for hypertension. SOCIAL HISTORY: The patient lives at home. Nonsmoker. 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 ALLERGIES: SULFA, CODEINE. MEDICATIONS: She is currently on Zosyn since 02/13/2019. She was given a preop dose of cefazolin and dexamethasone on 02/15/2019. Probiotics. Other medications are available and have been reviewed on the DEC. REVIEW OF SYSTEMS: The patient says that she is hoping to go home soon. She is feeling a little bit nauseous and having some abdominal pain and diarrhea. She complains of body aches, which are normal for her and attributes to fibromyalgia. She also says she has been having some dysuria since admission. Denies urinary frequency or urgency. Denies headache, nasal/sinus congestion or sore throat. Denies cough, shortness of air or chest discomfort. PHYSICAL EXAMINATION: VITAL SIGNS: Temperature is 98.3, blood pressure 142/85, heart rate 81, respiratory rate 18, pulse oximetry is 93% on room air. BMI is 44. GENERAL: The patient is propped up in bed, alert, in no apparent distress. HEENT: Pupils equally round, reactive. Normal conjunctivae. Oropharynx pink and moist. NECK: Supple. LUNGS: Clear to auscultation. HEART: S1 and S2. ABDOMEN: Obese, soft and mildly tender with bowel sounds present. She has an ice pack to right quadrant area. She has several surgical dressings, dry and intact. EXTREMITIES: No gross edema or cyanosis. SKIN: Warm without generalized rash. NEUROLOGIC: Alert and oriented x 3. LABORATORY DATA: Recent WBC 5.3 from 15.7, hemoglobin 12.5, platelets 192,000. Electrolytes unremarkable. Creatinine 0.7, BUN 5, glucose 92. Lactic acid 2.8, total bilirubin 0.4, AST 23, ALT 27, albumin 3.0, lipase 75. Urinalysis on 02/12/2019 unremarkable for infection. Blood cultures from 02/12/2019 show gram-positive cocci in clusters in 1 out of 2 bottles. Abdominal ultrasound and HIDA scan per HPI. Abdominal/pelvis CT showed mild gallbladder distention with wall thickening suggestive of acute cholecystitis. No evidence of calcified stone. No other acute findings. IMPRESSION: 1. Gram-positive cocci bacteremia, 1 out of 2 bottles, from 02/12/2019, likely contaminant. 2. Status post laparoscopic cholecystectomy on 02/15/2019. She was dosed preoperatively with dexamethasone and cefazolin. 3. Leukocytosis, better. 4. Diarrhea. 5. Lactic acidosis. 6. Morbid obesity with a BMI of 44. 7. Diabetes. 8. Hypertension. PLAN: The patient is clinically doing well. She has been on Zosyn since 02/13/2019. Awaiting GPC identification. Will dose one time vancomycin, She has labs ordered for the morning. Pain management per primary. Thank you, Dr. Salvador, for asking us to participate in this patient's care. Should you have further questions or concerns, please call. KIRIT MACHUCA MD DR: RITIKA/gerson JOB#: [id number] / [id number] MTDD
[2019-02-16] MEDS ORDERED: VANCOMYCIN 1 GM in IV NORMAL SALINE 250ML 250 ML IV ONE (14:00)
--- NOTE | 2019-02-16 14:32 | PDOC ---
Subjective: Subjective: Incisional pain. Tolerating PO. 3 loose stools today - about the same. Objective: Vital Signs: Vital Signs Date Time Temp Pulse Resp B/P (MAP) Pulse Ox O2 Delivery O2 Flow Rate FiO2 02/16/19 11:00 98.3 81 18 142/85 (104) 93 Room Air 98.3 02/15/19 16:33 2.0 PE: GEN: NAD - was on the phone LUNGS: CTAB HEART: RRR ABD: ice pack over RUQ, tender, soft NEURO/PSYCH: A & O 3 A/P: S/p [place] GPC bacteremia Loose stools -- Can check stool studies. Previous recs for PPI though not started - will add. KAITLYN MUNOZ February 16, 2019 14:32
[2019-02-16 15:00] VITALS: BP 146/80
--- NOTE | 2019-02-16 16:12 | NUR ---
Patient's blood C/S showed gram positive cocci in clusters, notified Dr. Salvador who was rounding the unit. ID consult was ordered.
[2019-02-16] MEDS: PANTOPRAZOLE 40 MG TABLET.DR. PO SCH (16:21)
[2019-02-16] MEDS: MORPHINE SULFATE 2 MG/ML VIAL. IV PRN (16:30)
[2019-02-16 19:49] VITALS: BP 153/81
[2019-02-16] MEDS: LOSARTAN POTASSIUM 25 MG TABLET. PO SCH (20:44)
[2019-02-16] MEDS: ATORVASTATIN CALCIUM 10 MG TABLET. PO SCH (20:44)
[2019-02-16] MEDS: AMITRIPTYLINE HCL 25 MG TABLET. PO SCH (20:45)
[2019-02-16 23:21] VITALS: BP 158/86
[2019-02-17] MEDS: PIPERACILLIN/TAZOBACTAM 3.375 GM in IV NORMAL SALINE 50ML 50 ML IV SCH ×4 (00:17→16:57)
[2019-02-17] MEDS: fentaNYL PF VIAL 100 MCG/2 ML VIAL IV PRN ×2 (00:24→08:10)
[2019-02-17 03:25] VITALS: BP 153/81
[2019-02-17] MEDS: IV NORMAL SALINE 1000ML BAG 1,000 ML IV SCH (03:52)
[2019-02-17 03:59] LABS: BASO % 1 % (0-3); EOS # 0.3 x10^3/uL (0.0-0.7); EOS % 3 % (0-3); HEMATOCRIT 34.9 % (36.0-47.0); HEMOGLOBIN 11.7 g/dL (12.0-15.5); LYMPH % 38 % (24-48); MEAN CORPUSCULAR HEMOGLOBIN 30 pg (25-35); MEAN CORPUSCULAR HGB CONC 34 g/dL (31-37); MEAN CORPUSCULAR VOLUME 89 fL (79-100); MONO # 0.4 x10^3/uL (0.0-1.1); MONO % 5 % (0-9); NEUT # 4.1 x10^3uL (1.8-7.7); NEUT % 53 % (31-73); PLATELET COUNT 210 x10^3/uL (140-400); RED BLOOD COUNT 3.93 x10^6/uL (3.50-5.40); RED CELL DISTRIBUTION WIDTH 12.8 % (11.5-14.5); WHITE BLOOD COUNT 7.8 x10^3/uL (4.0-11.0)
[2019-02-17] MEDS: HYDROcodone/APAP 7.5/325MG 1 TAB TABLET PO PRN ×2 (05:08→16:55)
[2019-02-17 07:15] VITALS: BP 170/99
[2019-02-17] MEDS: clonazePAM 0.5 MG TABLET PO SCH ×2 (07:59→20:54)
[2019-02-17] MEDS: PANTOPRAZOLE 40 MG TABLET.DR. PO SCH (08:00)
[2019-02-17] MEDS: lamoTRIgine 100 MG TABLET. PO SCH (08:00)
[2019-02-17] MEDS: CARVEDILOL 12.5 MG TABLET. PO SCH ×2 (08:01→16:56)
[2019-02-17] MEDS: LACTOBACILLUS RHAMNOSUS GG 1 CAPSULE. PO SCH ×2 (08:01→20:54)
[2019-02-17] MEDS: rOPINIRole 0.25 MG TABLET. PO SCH (08:01)
--- NOTE | 2019-02-17 09:31 | PDOC ---
Infectious Disease Note Subjective Subjective c/o abdominal pain No nausea and vomiting eating lunch Says been up walking No F/C/S Her 'younger cousin' is visiting. ROS ROS per HPI Vital Sign Vital Signs Vital Signs Date Time Temp Pulse Resp B/P (MAP) Pulse Ox O2 Delivery O2 Flow Rate FiO2 02/17/19 08:10 14 Room Air 02/17/19 08:01 79 153/81 02/17/19 07:15 98.0 95 98.0 02/17/19 06:13 2.0 Physical Exam PHYSICAL EXAM GENERAL: Lying down, alert, NAD HEENT: Pupils equally round, reactive. Normal conjunctivae. Oropharynx pink and moist. NECK: Supple. LUNGS: Clear to auscultation. HEART: S1 and S2. ABDOMEN: Obese, soft and mildly tender with bowel sounds present. EXTREMITIES: No gross edema or cyanosis. SKIN: Warm without generalized rash. NEUROLOGIC: Alert and oriented x 3. Labs Lab Laboratory Tests Test 02/17/19 03:25 White Blood Count 7.8 x10^3/uL (4.0-11.0) Red Blood Count 3.93 x10^6/uL (3.50-5.40) Hemoglobin 11.7 g/dL (12.0-15.5) Hematocrit 34.9 % (36.0-47.0) Mean Corpuscular Volume 89 fL (79-100) Mean Corpuscular Hemoglobin 30 pg (25-35) Mean Corpuscular Hemoglobin Concent 34 g/dL (31-37) Red Cell Distribution Width 12.8 % (11.5-14.5) Platelet Count 210 x10^3/uL (140-400) Neutrophils (%) (Auto) 53 % (31-73) Lymphocytes (%) (Auto) 38 % (24-48) Monocytes (%) (Auto) 5 % (0-9) Eosinophils (%) (Auto) 3 % (0-3) Basophils (%) (Auto) 1 % (0-3) Neutrophils # (Auto) 4.1 x10^3uL (1.8-7.7) Lymphocytes # (Auto) 3.0 x10^3/uL (1.0-4.8) Monocytes # (Auto) 0.4 x10^3/uL (0.0-1.1) Eosinophils # (Auto) 0.3 x10^3/uL (0.0-0.7) Basophils # (Auto) 0.0 x10^3/uL (0.0-0.2) Erythrocyte Sedimentation Rate 22 (0-25) Micro BLOOD CULTURE Final GRAM POSITIVE COCCI IN CLUSTERS IN 1 OF 2 BOTTLES OF A SINGLE SET COLLECTED. CALLED TO MANAV MORIN 6S 02/16/19 AT 0802 BY Yusef SIMPSON. CULTURE HAS BEEN SENT TO [facility] FOR FURTHER IDENTIFICATION. Objective Assessment GPC bacteremia (1 of 2 bottles) from 02/12, likely contaminate s/p lap cholecystectomy, 02/15 pre-op dexamethasone & Cefazolin Leukocytosis, better Diarrhea Lactic acidosis Morbid obesity, BMI 44 Diabetes HTN Plan Plan of Care cont Zosyn since 02/13 Vanc one time dose, 02/16 awaiting GPC ID Stool studies per GI Maintain aspiration precaution Pain management per primary Pt seen and examined, agree with above A/P as laid out by NOHEMI CHANG APRN February 17, 2019 09:31 KIRIT MACHUCA MD February 17, 2019 11:28
--- NOTE | 2019-02-17 09:55 | PDOC ---
Subjective: Subjective: Still has significant pain - RUQ and epigastrium around to back - was actually worse during the night. Loose stools stable, tolerating PO. Objective: Vital Signs: Vital Signs Date Time Temp Pulse Resp B/P (MAP) Pulse Ox O2 Delivery O2 Flow Rate FiO2 02/17/19 08:10 14 Room Air 02/17/19 08:01 79 153/81 02/17/19 07:15 98.0 95 98.0 02/17/19 06:13 2.0 Labs: Laboratory Tests Test 02/17/19 03:25 White Blood Count 7.8 x10^3/uL Red Blood Count 3.93 x10^6/uL Hemoglobin 11.7 g/dL Hematocrit 34.9 % Mean Corpuscular Volume 89 fL Mean Corpuscular Hemoglobin 30 pg Mean Corpuscular Hemoglobin Concent 34 g/dL Red Cell Distribution Width 12.8 % Platelet Count 210 x10^3/uL Neutrophils (%) (Auto) 53 % Lymphocytes (%) (Auto) 38 % Monocytes (%) (Auto) 5 % Eosinophils (%) (Auto) 3 % Basophils (%) (Auto) 1 % Neutrophils # (Auto) 4.1 x10^3uL Lymphocytes # (Auto) 3.0 x10^3/uL Monocytes # (Auto) 0.4 x10^3/uL Eosinophils # (Auto) 0.3 x10^3/uL Basophils # (Auto) 0.0 x10^3/uL Erythrocyte Sedimentation Rate 22 Imaging: IOC IMPRESSION: Intraoperative angiogram demonstrating focal narrowing of the downstream common bile duct at the ampulla possibly due to a spasm. This is not seen on final images. No retained stone is seen. PE: GEN: NAD LUNGS: CTAB HEART: RRR ABD: soft, incisional tenderness RUQ and epigastrium, has ice pack NEURO/PSYCH: A & O 3 A/P: ?worsening RUQ/epigastric pain - on PPI S/p [place] - IOC as above, normal LFTs GPC bacteremia - per ID Loose stools - culture and C Diff pending Mild post-op anemia -- Will review w/ Dr. Dunbar. KAITLYN MUNOZ February 17, 2019 09:55
--- NOTE | 2019-02-17 10:04 | PDOC ---
PROGRESS NOTES Chief Complaint Chief Complaint Symptomatic cholecystitis at this post laparoscopic cholecystectomy 02/15/19 GPC bacteremia 1 out of 2 bottles morbid obesity, BMI 45 History of Present Illness History of Present Illness she is feeling well Tolerating GI soft and ambulating about Dressing dry Good bowel sounds belly soft But RN called for GPC bacteremia 1 out of 2 bottles ? Contaminant No fevers no white count ID consulted-waiting for identification-likely contaminant Plan: She Is okay holding DC, await for identification Once we get that then we can see if she can discharge later this afternoon Vitals Vitals Vital Signs Date Time Temp Pulse Resp B/P (MAP) Pulse Ox O2 Delivery O2 Flow Rate FiO2 02/17/19 08:40 16 Room Air 02/17/19 08:01 79 153/81 02/17/19 07:15 98.0 95 98.0 02/17/19 06:13 2.0 Physical Exam Physical Exam GENERAL: Lying down, alert, NAD HEENT: Pupils equally round, reactive. Normal conjunctivae. Oropharynx pink and moist. NECK: Supple. LUNGS: Clear to auscultation. HEART: S1 and S2. ABDOMEN: Obese, soft and mildly tender with bowel sounds present. EXTREMITIES: No gross edema or cyanosis. SKIN: Warm without generalized rash. NEUROLOGIC: Alert and oriented x 3. General: Alert, Oriented X3, Cooperative, No acute distress Heart: Regular rate, Normal S1, Normal S2, No murmurs Abdomen: Soft, Other (lap dressings dry) Extremities: No clubbing, No cyanosis Skin: No rashes, No breakdown Labs LABS Laboratory Tests Test 02/17/19 03:25 White Blood Count 7.8 x10^3/uL (4.0-11.0) Red Blood Count 3.93 x10^6/uL (3.50-5.40) Hemoglobin 11.7 g/dL (12.0-15.5) Hematocrit 34.9 % (36.0-47.0) Mean Corpuscular Volume 89 fL (79-100) Mean Corpuscular Hemoglobin 30 pg (25-35) Mean Corpuscular Hemoglobin Concent 34 g/dL (31-37) Red Cell Distribution Width 12.8 % (11.5-14.5) Platelet Count 210 x10^3/uL (140-400) Neutrophils (%) (Auto) 53 % (31-73) Lymphocytes (%) (Auto) 38 % (24-48) Monocytes (%) (Auto) 5 % (0-9) Eosinophils (%) (Auto) 3 % (0-3) Basophils (%) (Auto) 1 % (0-3) Neutrophils # (Auto) 4.1 x10^3uL (1.8-7.7) Lymphocytes # (Auto) 3.0 x10^3/uL (1.0-4.8) Monocytes # (Auto) 0.4 x10^3/uL (0.0-1.1) Eosinophils # (Auto) 0.3 x10^3/uL (0.0-0.7) Basophils # (Auto) 0.0 x10^3/uL (0.0-0.2) Erythrocyte Sedimentation Rate 22 (0-25) Review of Systems Review of Systems A 14 point ROS was completed with the following noted as positive: Other systems reviewed and negative. \CONSTITUTIONAL: No fever or chills EYES: No recent changes SKIN: No rash or itching CARDIOVASCULAR: No chest pain, syncope, palpitations, or edema RESPIRATORY: No SOB or cough GASTROINTESTINAL: No nausea, vomiting or abdominal pain NEUROLOGICAL: No headaches or weakness ENDOCRINE: No cold or heat intolerance GENITOURINARY: No urgency or frequency of urination MUSCULOSKELETAL: No back pain or joint pain LYMPHATICS: No enlarged lymph nodes PSYCHIATRIC: No anxiety or depression Comment Review of Relevant I have reviewed the following items vielka (where applicable) has been applied. Labs Laboratory Tests Test 02/17/19 03:25 White Blood Count 7.8 x10^3/uL (4.0-11.0) Red Blood Count 3.93 x10^6/uL (3.50-5.40) Hemoglobin 11.7 g/dL (12.0-15.5) Hematocrit 34.9 % (36.0-47.0) Mean Corpuscular Volume 89 fL (79-100) Mean Corpuscular Hemoglobin 30 pg (25-35) Mean Corpuscular Hemoglobin Concent 34 g/dL (31-37) Red Cell Distribution Width 12.8 % (11.5-14.5) Platelet Count 210 x10^3/uL (140-400) Neutrophils (%) (Auto) 53 % (31-73) Lymphocytes (%) (Auto) 38 % (24-48) Monocytes (%) (Auto) 5 % (0-9) Eosinophils (%) (Auto) 3 % (0-3) Basophils (%) (Auto) 1 % (0-3) Neutrophils # (Auto) 4.1 x10^3uL (1.8-7.7) Lymphocytes # (Auto) 3.0 x10^3/uL (1.0-4.8) Monocytes # (Auto) 0.4 x10^3/uL (0.0-1.1) Eosinophils # (Auto) 0.3 x10^3/uL (0.0-0.7) Basophils # (Auto) 0.0 x10^3/uL (0.0-0.2) Erythrocyte Sedimentation Rate 22 (0-25) Laboratory Tests Test 02/17/19 03:25 White Blood Count 7.8 x10^3/uL (4.0-11.0) Red Blood Count 3.93 x10^6/uL (3.50-5.40) Hemoglobin 11.7 g/dL (12.0-15.5) Hematocrit 34.9 % (36.0-47.0) Mean Corpuscular Volume 89 fL (79-100) Mean Corpuscular Hemoglobin 30 pg (25-35) Mean Corpuscular Hemoglobin Concent 34 g/dL (31-37) Red Cell Distribution Width 12.8 % (11.5-14.5) Platelet Count 210 x10^3/uL (140-400) Neutrophils (%) (Auto) 53 % (31-73) Lymphocytes (%) (Auto) 38 % (24-48) Monocytes (%) (Auto) 5 % (0-9) Eosinophils (%) (Auto) 3 % (0-3) Basophils (%) (Auto) 1 % (0-3) Neutrophils # (Auto) 4.1 x10^3uL (1.8-7.7) Lymphocytes # (Auto) 3.0 x10^3/uL (1.0-4.8) Monocytes # (Auto) 0.4 x10^3/uL (0.0-1.1) Eosinophils # (Auto) 0.3 x10^3/uL (0.0-0.7) Basophils # (Auto) 0.0 x10^3/uL (0.0-0.2) Erythrocyte Sedimentation Rate 22 (0-25) Microbiology 02/12/19 Blood Culture - Final, Complete Medications Current Medications Sodium Chloride 1,000 ml @ 1,000 mls/hr 1X ONCE IV Last administered on 02/12/19 19:35; Start 02/12/19 at 20:00; Stop 02/12/19 at 20:59; Status DC Ondansetron HCl (Zofran) 4 mg 1X ONCE IV Last administered on 02/12/19 19:35; Start 02/12/19 at 20:00; Stop 02/12/19 at 20:01; Status DC Sodium Chloride 1,000 ml @ 1,000 mls/hr 1X ONCE IV Last administered on 02/12/19at 20:47; Start 02/12/19 at 21:00; Stop 02/12/19 at 21:59; Status DC Ketorolac Tromethamine (Toradol 30mg Vial) 30 mg 1X ONCE IV Last administered on 02/12/19at 20:47; Start 02/12/19 at 20:45; Stop 02/12/19 at 20:46; Status DC Iohexol (Omnipaque 300 Mg/ml) 60 ml 1X ONCE IV Last administered on 02/12/19at 21:41; Start 02/12/19 at 21:30; Stop 02/12/19 at 21:31; Status DC Info (CONTRAST GIVEN -- Rx MONITORING) 1 each PRN DAILY PRN MC SEE COMMENTS; Start 02/12/19 at 21:30; Stop 02/14/19 at 21:29; Status DC Sodium Chloride 1,000 ml @ 1,000 mls/hr 1X ONCE IV Last administered on 02/12/19at 22:05; Start 02/12/19 at 21:45; Stop 02/12/19 at 22:44; Status DC Piperacillin Sod/ Tazobactam Sod 3.375 gm/Sodium Chloride 50 ml @ 100 mls/hr 1X ONCE IV Last administered on 02/12/19at 22:05; Start 02/12/19 at 22:00; Stop 02/12/19 at 22:29; Status DC Ondansetron HCl (Zofran) 4 mg PRN Q8HRS PRN IV NAUSEA/VOMITING Last administered on 5/3/19at 17:09; Start 02/12/19 at 22:00; Stop 02/13/19 at 21:59; Status DC Labetalol HCl (Normodyne Iv Push) 5 mg 1X ONCE IVP Last administered on 02/12/19 22:42; Start 02/12/19 at 22:30; Stop 02/12/19 at 22:31; Status DC Labetalol HCl (Normodyne Iv Push) 5 mg PRN Q10MIN PRN IVP HYPERTENSION, SEE COMMENTS; Start 02/12/19 at 22:30 Amitriptyline HCl (Elavil) 50 mg HS PO Last administered on 02/16/19 20:45; Start 02/13/19 at 00:45 Atorvastatin Calcium (Lipitor) 10 mg HS PO Last administered on 02/16/19 20:44; Start 02/13/19 at 00:45 Carvedilol (Coreg) 12.5 mg BIDWMEALS PO Last administered on 02/17/19 08:01; Start 02/13/19 at 00:45 Clonazepam (KlonoPIN) 0.5 mg BID PO Last administered on 02/17/19 07:59; Start 02/13/19 at 00:45 Losartan Potassium (Cozaar) 25 mg HS PO Last administered on 02/16/19 20:44; Start 02/13/19 at 00:45 Oxycodone/ Acetaminophen (Percocet 5/325) 1 tab TID PO ; Start 02/13/19 at 09:00; Stop 02/13/19 at 12:39; Status DC Lamotrigine (LaMICtal) 150 mg DAILY PO Last administered on 02/17/19 08:00; Start 02/13/19 at 00:45 Promethazine HCl (Phenergan) 25 mg PRN Q6HRS PRN PO NAUSEA/VOMITING Last administered on 02/16/19 12:03; Start 02/13/19 at 00:45 Ropinirole HCl (Requip) 0.25 mg DAILY PO Last administered on 02/17/19 08:01; Start 02/13/19 at 00:45 Tizanidine HCl (Zanaflex) 4 mg PRN TID PRN PO spasms; Start 02/13/19 at 00:45 Morphine Sulfate (Morphine Sulfate) 2 mg PRN Q2HR PRN IV MODERATE - SEVERE PAIN Last administered on 02/16/19 16:30; Start 02/13/19 at 00:45 Ketorolac Tromethamine (Toradol 30mg Vial) 30 mg PRN Q6HRS PRN IV MILD PAIN Last administered on 02/16/19 12:03; Start 02/13/19 at 00:45; Stop 02/18/19 at 00:44 Sodium Chloride 1,000 ml @ 125 mls/hr Q8H IV Last administered on 02/17/19 03:52; Start 02/13/19 at 01:30; Stop 02/17/19 at 08:11; Status DC Iohexol (Omnipaque 300 Mg/ml) 100 ml STK-MED ONCE .ROUTE Last administered on 02/15/19 08:24; Start 02/13/19 at 05:06; Stop 02/13/19 at 05:07; Status DC Piperacillin Sod/ Tazobactam Sod (Zosyn Per Pharmacy) 1 each PRN DAILY PRN MC SEE COMMENTS; Start 02/13/19 at 11:30 Piperacillin Sod/ Tazobactam Sod 3.375 gm/Sodium Chloride 50 ml @ 100 mls/hr Q6HRS IV Last administered on 02/17/19 05:42; Start 02/13/19 at 12:00 Acetaminophen/ Hydrocodone Bitart (Lortab 7.5/325) 1 tab PRN Q6HRS PRN PO PAIN Last administered on 02/17/19 05:08; Start 02/13/19 at 12:45 Fentanyl Citrate (Fentanyl 2ml Vial) 50 mcg PRN Q3HRS PRN IV MODERATE PAIN, SEVERE PAIN Last administered on 02/17/19 08:10; Start 02/13/19 at 15:15 Sincalide 2.39 mcg/Sodium Chloride 30 ml @ 120 mls/hr 1X ONCE IV Last administered on 02/13/19 17:02; Start 02/13/19 at 16:00; Stop 02/13/19 at 16:14; Status DC Cefazolin Sodium/ Dextrose 50 ml @ 100 mls/hr 1X PREOP PRN IV fashion patternmaker to or Last administered on 02/15/19at 07:50; Start 02/15/19 at 06:00; Stop 02/15/19 at 18:00; Status DC Lactobacillus Rhamnosus (Culturelle) 1 cap BID PO Last administered on 02/17/19at 08:01; Start 02/14/19 at 21:00 Fentanyl Citrate (Fentanyl 2ml Vial) 100 mcg STK-MED ONCE .ROUTE ; Start 02/15/19 at 06:56; Stop 02/15/19 at 06:57; Status DC Rocuronium [place] (Zemuron) 50 mg STK-MED ONCE .ROUTE ; Start 02/15/19 at 06:56; Stop 02/15/19 at 06:57; Status DC Sevoflurane (Ultane) 60 ml STK-MED ONCE IH ; Start 02/15/19 at 06:58; Stop 02/15/19 at 06:59; Status DC Propofol 20 ml @ As Directed STK-MED ONCE IV ; Start 02/15/19 at 06:58; Stop 02/15/19 at 06:59; Status DC Lidocaine HCl (Lidocaine Pf 2% Vial) 5 ml STK-MED ONCE .ROUTE ; Start 02/15/19 at 06:58; Stop 02/15/19 at 06:59; Status DC Ondansetron HCl (Zofran) 4 mg STK-MED ONCE .ROUTE ; Start 02/15/19 at 06:58; Stop 02/15/19 at 06:59; Status DC Dexamethasone Sodium Phosphate (Decadron) 4 mg STK-MED ONCE .ROUTE ; Start 02/15/19 at 06:01; Stop 02/15/19 at 07:02; Status DC Bupivacaine HCl/ Epinephrine Bitart (Sensorcain-Mpf Epi 0.5%-[id number]) 30 ml STK-MED ONCE .ROUTE Last administered on 02/15/19at 08:24; Start 02/15/19 at 06:09; Stop 02/15/19 at 07:09; Status DC Iohexol (Omnipaque 300 Mg/ml) 50 ml STK-MED ONCE .ROUTE ; Start 02/15/19 at 06:09; Stop 02/15/19 at 07:09; Status DC Cellulose (Surgicel Hemostat 4x8) 1 each STK-MED ONCE .ROUTE ; Start 02/15/19 at 06:09; Stop 02/15/19 at 07:09; Status DC Ondansetron HCl (Zofran) 4 mg PRN Q6HRS PRN IV NAUSEA/VOMITING; Start 02/15/19 at 07:45; Stop 02/15/19 at 18:00; Status DC Fentanyl Citrate (Fentanyl 2ml Vial) 25 mcg PRN Q5MIN PRN IV MILD PAIN; Start 02/15/19 at 07:45; Stop 02/15/19 at 18:00; Status DC Fentanyl Citrate (Fentanyl 2ml Vial) 50 mcg PRN Q5MIN PRN IV MODERATE TO SEVERE PAIN Last administered on 02/15/19at 09:55; Start 02/15/19 at 07:45; Stop 02/15/19 at 18:00; Status DC Morphine Sulfate (Morphine Sulfate) 1 mg PRN Q10MIN PRN IV SEVERE PAIN; Start 02/15/19 at 07:45; Stop 02/15/19 at 18:00; Status DC Ringer's Solution 1,000 ml @ 30 mls/hr Q24H IV ; Start 02/15/19 at 07:41; Stop 02/15/19 at 19:40; Status DC Lidocaine HCl (Xylocaine-Mpf 1% 2ml Vial) 2 ml 1X PRN PRN ID IV START; Start 02/15/19 at 07:45; Stop 02/15/19 at 18:00; Status DC Hydromorphone HCl (Dilaudid) 0.5 mg PRN Q10MIN PRN IV SEV PAIN, Second choice; Start 02/15/19 at 07:45; Stop 02/15/19 at 18:00; Status DC Prochlorperazine Edisylate (Compazine) 5 mg PACU PRN PRN IV NAUSEA, MRX1 Last administered on 02/15/19at 09:41; Start 02/15/19 at 07:45; Stop 02/15/19 at 18:00; Status DC Cefazolin Sodium 100 ml @ As Directed STK-MED ONCE IV ; Start 02/15/19 at 07:49; Stop 02/15/19 at 07:50; Status DC Midazolam HCl (Versed) 2 mg STK-MED ONCE .ROUTE ; Start 02/15/19 at 07:51; Stop 02/15/19 at 07:52; Status DC Glycopyrrolate (Robinul) 1 mg STK-MED ONCE .ROUTE ; Start 02/15/19 at 08:24; S top 02/15/19 at 08:25; Status DC Neostigmine Methylsulfate (Neostigmine Methylsulfate) 5 mg STK-MED ONCE .ROUTE ; Start 02/15/19 at 08:25; Stop 02/15/19 at 08:26; Status DC Rocuronium [place] (Zemuron) 50 mg STK-MED ONCE .ROUTE ; Start 02/15/19 at 08:25; Stop 02/15/19 at 08:26; Status DC Ketorolac Tromethamine (Toradol For Or Only) 30 mg STK-MED ONCE INJ ; Start 02/15/19 at 08:34; Stop 02/15/19 at 08:35; Status DC Hydralazine HCl (Apresoline Inj) 20 mg STK-MED ONCE .ROUTE ; Start 02/15/19 at 09:03; Stop 02/15/19 at 09:04; Status DC Oxycodone/ Acetaminophen (Percocet 5/325) 1 tab PRN Q4HRS PRN PO MODERATE PAIN; Start 02/15/19 at 09:30 Oxycodone/ Acetaminophen (Percocet 5/325) 2 tab PRN Q4HRS PRN PO SEVERE PAIN; Start 02/15/19 at 09:45 Fentanyl Citrate (Fentanyl 2ml Vial) 100 mcg STK-MED ONCE .ROUTE ; Start 02/15/19 at 09:37; Stop 02/15/19 at 09:38; Status DC Prochlorperazine Edisylate (Compazine) 10 mg STK-MED ONCE .ROUTE ; Start 02/15/19 at 09:40; Stop 02/15/19 at 09:41; Status DC Clonidine HCl (Catapres) 0.1 mg PRN Q1HR PRN PO HYPERTENSION, SEE COMMENTS; Start 02/16/19 at 08:45 Vancomycin HCl 1 gm/Sodium Chloride 250 ml @ 250 mls/hr ONCE ONCE IV Last administered on 02/16/19at 14:45; Start 02/16/19 at 14:00; Stop 02/16/19 at 14:59; Status DC Pantoprazole Sodium (Protonix) 40 mg DAILYAC PO Last administered on 02/17/19at 08:00; Start 5/6/19 at 15:00 Active Scripts Active Promethazine Hcl 25 Mg Tablet 25 Mg PO Q6H PRN MDD 1 Percocet 5-325 Mg Tablet (Oxycodone/Acetaminophen) 1 Each Tablet 1 Tab PO TID MDD 1 Amoxicillin 500 Mg Capsule 500 Mg PO TID 10 Days Reported Amitriptyline Hcl 50 Mg Tablet 50 Mg PO HS Losartan Potassium (Losartan Potassium) 25 Mg Tablet 25 Mg PO HS Clonazepam 0.5 Mg Tablet 0.5 Mg PO BID Lamotrigine 150 Mg Tablet 150 Mg PO DAILY Carvedilol (Carvedilol) 12.5 Mg Tablet 12.5 Mg PO BIDWMEALS Atorvastatin Calcium 10 Mg Tablet 10 Mg PO HS Requip (Ropinirole Hcl) 0.5 Mg Tablet 0.25 Mg PO DAILY Tizanidine Hcl 4 Mg Tablet 1 Tab PO TID PRN Vitals/I & O Vital Sign - Last 24 Hours 02/16/19 02/16/19 02/16/19 02/16/19 11:00 14:48 15:00 15:50 Temp 98.3 98.1 98.3 98.1 Pulse 81 85 Resp 18 18 18 18 B/P (MAP) 142/85 (104) 146/80 (102) Pulse Ox 93 93 93 O2 Delivery Room Air Room Air Room Air 02/16/19 02/16/19 02/16/19 02/16/19 16:30 17:00 17:56 19:49 Temp 98.6 98.6 Pulse 85 83 Resp 18 18 16 B/P (MAP) 146/80 153/81 (105) Pulse Ox 93 93 94 O2 Delivery Room Air Room Air Room Air 02/16/19 02/16/19 02/16/19 02/17/19 20:44 20:49 23:21 03:25 Temp 98.2 97.7 98.2 97.7 Pulse 83 82 79 Resp 18 16 B/P (MAP) 153/81 158/86 (110) 153/81 (105) Pulse Ox 96 93 O2 Delivery Room Air Room Air Room Air 02/17/19 02/17/19 02/17/19 02/17/19 05:08 06:13 07:15 08:00 Temp 98.0 98.0 Pulse 82 Resp 16 B/P (MAP) 170/99 (122) Pulse Ox 93 95 O2 Delivery Room Air Room Air Room Air Room Air O2 Flow Rate 2.0 02/17/19 02/17/19 02/17/19 08:01 08:10 08:40 Pulse 79 Resp 14 16 B/P (MAP) 153/81 O2 Delivery Room Air Room Air Intake and Output 02/16/19 02/16/19 02/17/19 15:00 23:00 07:00 Intake Total 360 ml Balance 360 ml BARTOLO BARRON MD February 17, 2019 10:04
--- NOTE | 2019-02-17 10:08 | PDOC ---
NAVYA PERRY MOLD CAR PUSHER 02/17/19 1007: SURGICAL PROGRESS NOTE Subjective still with RUQ pain, radiates to back nausea now resolved Vital Signs Vital Signs Date Time Temp Pulse Resp B/P (MAP) Pulse Ox O2 Delivery O2 Flow Rate FiO2 02/17/19 08:40 16 Room Air 02/17/19 08:01 79 153/81 02/17/19 07:15 98.0 95 98.0 02/17/19 06:13 2.0 I&O Intake and Output 02/17/19 07:00 Intake Total 360 ml Balance 360 ml Intake Oral 360 ml # Voids 7 General: Alert, Oriented X3, Cooperative, No acute distress Abdomen: Soft, Other (TTP upper abdomen ) Labs Laboratory Tests Test 02/17/19 03:25 White Blood Count 7.8 x10^3/uL (4.0-11.0) Red Blood Count 3.93 x10^6/uL (3.50-5.40) Hemoglobin 11.7 g/dL (12.0-15.5) Hematocrit 34.9 % (36.0-47.0) Mean Corpuscular Volume 89 fL (79-100) Mean Corpuscular Hemoglobin 30 pg (25-35) Mean Corpuscular Hemoglobin Concent 34 g/dL (31-37) Red Cell Distribution Width 12.8 % (11.5-14.5) Platelet Count 210 x10^3/uL (140-400) Neutrophils (%) (Auto) 53 % (31-73) Lymphocytes (%) (Auto) 38 % (24-48) Monocytes (%) (Auto) 5 % (0-9) Eosinophils (%) (Auto) 3 % (0-3) Basophils (%) (Auto) 1 % (0-3) Neutrophils # (Auto) 4.1 x10^3uL (1.8-7.7) Lymphocytes # (Auto) 3.0 x10^3/uL (1.0-4.8) Monocytes # (Auto) 0.4 x10^3/uL (0.0-1.1) Eosinophils # (Auto) 0.3 x10^3/uL (0.0-0.7) Basophils # (Auto) 0.0 x10^3/uL (0.0-0.2) Erythrocyte Sedimentation Rate 22 (0-25) Laboratory Tests Test 02/17/19 03:25 White Blood Count 7.8 x10^3/uL (4.0-11.0) Red Blood Count 3.93 x10^6/uL (3.50-5.40) Hemoglobin 11.7 g/dL (12.0-15.5) Hematocrit 34.9 % (36.0-47.0) Mean Corpuscular Volume 89 fL (79-100) Mean Corpuscular Hemoglobin 30 pg (25-35) Mean Corpuscular Hemoglobin Concent 34 g/dL (31-37) Red Cell Distribution Width 12.8 % (11.5-14.5) Platelet Count 210 x10^3/uL (140-400) Neutrophils (%) (Auto) 53 % (31-73) Lymphocytes (%) (Auto) 38 % (24-48) Monocytes (%) (Auto) 5 % (0-9) Eosinophils (%) (Auto) 3 % (0-3) Basophils (%) (Auto) 1 % (0-3) Neutrophils # (Auto) 4.1 x10^3uL (1.8-7.7) Lymphocytes # (Auto) 3.0 x10^3/uL (1.0-4.8) Monocytes # (Auto) 0.4 x10^3/uL (0.0-1.1) Eosinophils # (Auto) 0.3 x10^3/uL (0.0-0.7) Basophils # (Auto) 0.0 x10^3/uL (0.0-0.2) Erythrocyte Sedimentation Rate 22 (0-25) Problem List s/p [place] increase activity check LFTS ELOY CORLEY MD 02/18/19 0736: SURGICAL PROGRESS NOTE Assessment/Plan Agree with above NAVYA PERRY MOLD [employer] PUSHER February 17, 2019 10:07 ELOY CORLEY MD February 18, 2019 07:36
[2019-02-17 10:29] LABS: DIRECT BILIRUBIN 0.1 mg/dL (0.0-0.2); TOTAL BILIRUBIN 0.3 mg/dL (0.2-1.0); TOTAL PROTEIN 6.2 g/dL (6.4-8.2)
[2019-02-17 11:00] VITALS: BP 152/89
[2019-02-17] MEDS: oxyCODONE/APAP 5/325 1 TAB TABLET PO PRN ×2 (12:15→20:59)
[2019-02-17 15:00] VITALS: BP 160/101
[2019-02-17] MEDS: PROMETHAZINE 12.5 MG TABLET. PO PRN (16:56)
[2019-02-17 19:49] VITALS: BP 174/107
[2019-02-17] MEDS: LOSARTAN POTASSIUM 25 MG TABLET. PO SCH (20:54)
[2019-02-17] MEDS: ATORVASTATIN CALCIUM 10 MG TABLET. PO SCH (20:54)
[2019-02-17] MEDS: AMITRIPTYLINE HCL 25 MG TABLET. PO SCH (20:55)
[2019-02-17 23:37] VITALS: BP 172/107
[2019-02-18] VITALS (7 sets, daily range): BP systolic 137–159; BP diastolic 84–109
[2019-02-18] MEDS: MORPHINE SULFATE 2 MG/ML VIAL. IV PRN ×2 (00:09→23:17)
[2019-02-18] MEDS: PIPERACILLIN/TAZOBACTAM 3.375 GM in IV NORMAL SALINE 50ML 50 ML IV SCH ×5 (00:09→23:18)
[2019-02-18] MEDS: PANTOPRAZOLE 40 MG TABLET.DR. PO SCH (07:35)
[2019-02-18] MEDS: HYDROcodone/APAP 7.5/325MG 1 TAB TABLET PO PRN ×2 (07:35→17:52)
--- NOTE | 2019-02-18 08:37 | PDOC ---
PROGRESS NOTES Subjective Subjective doing ok, some burning abdominal wall pain Objective Objective Vital Signs Date Time Temp Pulse Resp B/P (MAP) Pulse Ox O2 Delivery O2 Flow Rate FiO2 02/18/19 07:35 18 94 Room Air 02/18/19 07:00 97.6 85 159/109 (126) 97.6 02/17/19 13:15 2.0 Intake and Output 02/18/19 06:59 Intake Total 3330 ml Balance 3330 ml Intake Oral 2330 ml IV Total 1000 ml # Voids 5 Physical Exam Abdomen: Soft (tender at incisions) Assessment Assessment S/P lap [place] Plan Plan of Care Discharge per primary service, FU with me in 2 weeks Comment Review of Relevant I have reviewed the following items vielka (where applicable) has been applied. Labs Laboratory Tests Test 02/17/19 01:40 02/17/19 03:25 Clostridium difficile Toxin B Gene Negative (Negative) White Blood Count 7.8 x10^3/uL (4.0-11.0) Red Blood Count 3.93 x10^6/uL (3.50-5.40) Hemoglobin 11.7 g/dL (12.0-15.5) Hematocrit 34.9 % (36.0-47.0) Mean Corpuscular Volume 89 fL (79-100) Mean Corpuscular Hemoglobin 30 pg (25-35) Mean Corpuscular Hemoglobin Concent 34 g/dL (31-37) Red Cell Distribution Width 12.8 % (11.5-14.5) Platelet Count 210 x10^3/uL (140-400) Neutrophils (%) (Auto) 53 % (31-73) Lymphocytes (%) (Auto) 38 % (24-48) Monocytes (%) (Auto) 5 % (0-9) Eosinophils (%) (Auto) 3 % (0-3) Basophils (%) (Auto) 1 % (0-3) Neutrophils # (Auto) 4.1 x10^3uL (1.8-7.7) Lymphocytes # (Auto) 3.0 x10^3/uL (1.0-4.8) Monocytes # (Auto) 0.4 x10^3/uL (0.0-1.1) Eosinophils # (Auto) 0.3 x10^3/uL (0.0-0.7) Basophils # (Auto) 0.0 x10^3/uL (0.0-0.2) Erythrocyte Sedimentation Rate 22 (0-25) Total Bilirubin 0.3 mg/dL (0.2-1.0) Direct Bilirubin 0.1 mg/dL (0.0-0.2) Aspartate Amino Transf (AST/SGOT) 20 U/L (15-37) Alanine Aminotransferase (ALT/SGPT) 30 U/L (14-59) Alkaline Phosphatase 53 U/L (46-116) Total Protein 6.2 g/dL (6.4-8.2) Albumin 3.0 g/dL (3.4-5.0) Microbiology 02/12/19 Blood Culture - Final, Complete Medications Current Medications Sodium Chloride 1,000 ml @ 1,000 mls/hr 1X ONCE IV Last administered on 02/12/19at 19:35; Start 02/12/19 at 20:00; Stop 02/12/19 at 20:59; Status DC Ondansetron HCl (Zofran) 4 mg 1X ONCE IV Last administered on 02/12/19at 19:35; Start 02/12/19 at 20:00; Stop 02/12/19 at 20:01; Status DC Sodium Chloride 1,000 ml @ 1,000 mls/hr 1X ONCE IV Last administered on 02/12/19at 20:47; Start 02/12/19 at 21:00; Stop 02/12/19 at 21:59; Status DC Ketorolac Tromethamine (Toradol 30mg Vial) 30 mg 1X ONCE IV Last administered on 02/12/19at 20:47; Start 02/12/19 at 20:45; Stop 02/12/19 at 20:46; Status DC Iohexol (Omnipaque 300 Mg/ml) 60 ml 1X ONCE IV Last administered on 02/12/19at 21:41; Start 02/12/19 at 21:30; Stop 02/12/19 at 21:31; Status DC Info (CONTRAST GIVEN -- Rx MONITORING) 1 each PRN DAILY PRN MC SEE COMMENTS; Start 02/12/19 at 21:30; Stop 02/14/19 at 21:29; Status DC Sodium Chloride 1,000 ml @ 1,000 mls/hr 1X ONCE IV Last administered on 02/12/19at 22:05; Start 02/12/19 at 21:45; Stop 02/12/19 at 22:44; Status DC Piperacillin Sod/ Tazobactam Sod 3.375 gm/Sodium Chloride 50 ml @ 100 mls/hr 1X ONCE IV Last administered on 02/12/19 22:05; Start 02/12/19 at 22:00; Stop 02/12/19 at 22:29; Status DC Ondansetron HCl (Zofran) 4 mg PRN Q8HRS PRN IV NAUSEA/VOMITING Last administered on 02/13/19 17:09; Start 02/12/19 at 22:00; Stop 02/13/19 at 21:59; Status DC Labetalol HCl (Normodyne Iv Push) 5 mg 1X ONCE IVP Last administered on 02/12/19at 22:42; Start 02/12/19 at 22:30; Stop 02/12/19 at 22:31; Status DC Labetalol HCl (Normodyne Iv Push) 5 mg PRN Q10MIN PRN IVP HYPERTENSION, SEE COMMENTS; Start 02/12/19 at 22:30 Amitriptyline HCl (Elavil) 50 mg HS PO Last administered on 02/17/19 20:55; Start 02/13/19 at 00:45 Atorvastatin Calcium (Lipitor) 10 mg HS PO Last administered on 02/17/19 20:54; Start 02/13/19 at 00:45 Carvedilol (Coreg) 12.5 mg BIDWMEALS PO Last administered on 02/17/19 16:56; Start 02/13/19 at 00:45 Clonazepam (KlonoPIN) 0.5 mg BID PO Last administered on 02/17/19 20:54; Start 02/13/19 at 00:45 Losartan Potassium (Cozaar) 25 mg HS PO Last administered on 02/17/19 20:54; Start 02/13/19 at 00:45 Oxycodone/ Acetaminophen (Percocet 5/325) 1 tab TID PO ; Start 02/13/19 at 09:00; Stop 02/13/19 at 12:39; Status DC Lamotrigine (LaMICtal) 150 mg DAILY PO Last administered on 02/17/19at 08:00; Start 02/13/19 at 00:45 Promethazine HCl (Phenergan) 25 mg PRN Q6HRS PRN PO NAUSEA/VOMITING Last administered on 02/17/19 16:56; Start 02/13/19 at 00:45 Ropinirole HCl (Requip) 0.25 mg DAILY PO Last administered on 02/17/19 08:01; Start 02/13/19 at 00:45 Tizanidine HCl (Zanaflex) 4 mg PRN TID PRN PO spasms; Start 02/13/19 at 00:45 Morphine Sulfate (Morphine Sulfate) 2 mg PRN Q2HR PRN IV MODERATE PAIN Last administered on 02/18/19 00:09; Start 02/13/19 at 00:45 Ketorolac Tromethamine (Toradol 30mg Vial) 30 mg PRN Q6HRS PRN IV MILD PAIN Last administered on 02/16/19 12:03; Start 02/13/19 at 00:45; Stop 02/18/19 at 00:44; Status DC Sodium Chloride 1,000 ml @ 125 mls/hr Q8H IV Last administered on 02/17/19 03:52; Start 02/13/19 at 01:30; Stop 02/17/19 at 08:11; Status DC Iohexol (Omnipaque 300 Mg/ml) 100 ml STK-MED ONCE .ROUTE Last administered on 02/15/19 08:24; Start 02/13/19 at 05:06; Stop 02/13/19 at 05:07; Status DC Piperacillin Sod/ Tazobactam Sod (Zosyn Per Pharmacy) 1 each PRN DAILY PRN MC SEE COMMENTS; Start 02/13/19 at 11:30 Piperacillin Sod/ Tazobactam Sod 3.375 gm/Sodium Chloride 50 ml @ 100 mls/hr Q6HRS IV Last administered on 02/18/19 06:05; Start 02/13/19 at 12:00 Acetaminophen/ Hydrocodone Bitart (Lortab 7.5/325) 1 tab PRN Q6HRS PRN PO MOD ERATE PAIN Last administered on 02/18/19 07:35; Start 02/13/19 at 12:45 Fentanyl Citrate (Fentanyl 2ml Vial) 50 mcg PRN Q3HRS PRN IV SEVERE PAIN Last administered on 5/7/19at 08:10; Start 02/13/19 at 15:15 Sincalide 2.39 mcg/Sodium Chloride 30 ml @ 120 mls/hr 1X ONCE IV Last administered on 02/13/19at 17:02; Start 02/13/19 at 16:00; Stop 02/13/19 at 16:14; Status DC Cefazolin Sodium/ Dextrose 50 ml @ 100 mls/hr 1X PREOP PRN IV neon sign maker to or Last administered on 02/15/19at 07:50; Start 02/15/19 at 06:00; Stop 02/15/19 at 18:00; Status DC Lactobacillus Rhamnosus (Culturelle) 1 cap BID PO Last administered on 02/17/19at 20:54; Start 02/14/19 at 21:00 Fentanyl Citrate (Fentanyl 2ml Vial) 100 mcg STK-MED ONCE .ROUTE ; Start 02/15/19 at 06:56; Stop 02/15/19 at 06:57; Status DC Rocuronium [place] (Zemuron) 50 mg STK-MED ONCE .ROUTE ; Start 02/15/19 at 06:56; Stop 02/15/19 at 06:57; Status DC Sevoflurane (Ultane) 60 ml STK-MED ONCE IH ; Start 02/15/19 at 06:58; Stop 02/15/19 at 06:59; Status DC Propofol 20 ml @ As Directed STK-MED ONCE IV ; Start 02/15/19 at 06:58; Stop 02/15/19 at 06:59; Status DC Lidocaine HCl (Lidocaine Pf 2% Vial) 5 ml STK-MED ONCE .ROUTE ; Start 02/15/19 at 06:58; Stop 02/15/19 at 06:59; Status DC Ondansetron HCl (Zofran) 4 mg STK-MED ONCE .ROUTE ; Start 02/15/19 at 06:58; Stop 02/15/19 at 06:59; Status DC Dexamethasone Sodium Phosphate (Decadron) 4 mg STK-MED ONCE .ROUTE ; Start 02/15/19 at 06:01; Stop 02/15/19 at 07:02; Status DC Bupivacaine HCl/ Epinephrine Bitart (Sensorcain-Mpf Epi 0.5%-1:884092) 30 ml STK-MED ONCE .ROUTE Last administered on 02/15/19at 08:24; Start 02/15/19 at 06:09; Stop 02/15/19 at 07:09; Status DC Iohexol (Omnipaque 300 Mg/ml) 50 ml STK-MED ONCE .ROUTE ; Start 02/15/19 at 06:09; Stop 02/15/19 at 07:09; Status DC Cellulose (Surgicel Hemostat 4x8) 1 each STK-MED ONCE .ROUTE ; Start 02/15/19 at 06:09; Stop 02/15/19 at 07:09; Status DC Ondansetron HCl (Zofran) 4 mg PRN Q6HRS PRN IV NAUSEA/VOMITING; Start 02/15/19 at 07:45; Stop 02/15/19 at 18:00; Status DC Fentanyl Citrate (Fentanyl 2ml Vial) 25 mcg PRN Q5MIN PRN IV MILD PAIN; Start 02/15/19 at 07:45; Stop 02/15/19 at 18:00; Status DC Fentanyl Citrate (Fentanyl 2ml Vial) 50 mcg PRN Q5MIN PRN IV MODERATE TO SEVERE PAIN Last administered on 02/15/19at 09:55; Start 02/15/19 at 07:45; Stop 02/15/19 a t 18:00; Status DC Morphine Sulfate (Morphine Sulfate) 1 mg PRN Q10MIN PRN IV SEVERE PAIN; Start 02/15/19 at 07:45; Stop 02/15/19 at 18:00; Status DC Ringer's Solution 1,000 ml @ 30 mls/hr Q24H IV ; Start 02/15/19 at 07:41; Stop 02/15/19 at 19:40; Status DC Lidocaine HCl (Xylocaine-Mpf 1% 2ml Vial) 2 ml 1X PRN PRN ID IV START; Start 02/15/19 at 07:45; Stop 02/15/19 at 18:00; Status DC Hydromorphone HCl (Dilaudid) 0.5 mg PRN Q10MIN PRN IV SEV PAIN, Second choice; Start 02/15/19 at 07:45; Stop 02/15/19 at 18:00; Status DC Prochlorperazine Edisylate (Compazine) 5 mg PACU PRN PRN IV NAUSEA, MRX1 Last administered on 02/15/19at 09:41; Start 02/15/19 at 07:45; Stop 02/15/19 at 18:00; Status DC Cefazolin Sodium 100 ml @ As Directed STK-MED ONCE IV ; Start 02/15/19 at 07:49; Stop 02/15/19 at 07:50; Status DC Midazolam HCl (Versed) 2 mg STK-MED ONCE .ROUTE ; Start 02/15/19 at 07:51; Stop 02/15/19 at 07:52; Status DC Glycopyrrolate (Robinul) 1 mg STK-MED ONCE .ROUTE ; Start 02/15/19 at 08:24; Stop 02/15/19 at 08:25; Status DC Neostigmine Methylsulfate (Neostigmine Methylsulfate) 5 mg STK-MED ONCE .ROUTE ; Start 02/15/19 at 08:25; Stop 02/15/19 at 08:26; Status DC Rocuronium [place] (Zemuron) 50 mg STK-MED ONCE .ROUTE ; Start 02/15/19 at 08:25; Stop 02/15/19 at 08:26; Status DC Ketorolac Tromethamine (Toradol For Or Only) 30 mg STK-MED ONCE INJ ; Start 02/15/19 at 08:34; Stop 02/15/19 at 08:35; Status DC Hydralazine HCl (Apresoline Inj) 20 mg STK-MED ONCE .ROUTE ; Start 02/15/19 at 09:03; Stop 02/15/19 at 09:04; Status DC Oxycodone/ Acetaminophen (Percocet 5/325) 1 tab PRN Q4HRS PRN PO MILD PAIN Last administered on 02/17/19at 20:59; Start 02/15/19 at 09:30 Oxycodone/ Acetaminophen (Percocet 5/325) 2 tab PRN Q4HRS PRN PO SEVERE PAIN; Start 02/15/19 at 09:45 Fentanyl Citrate (Fentanyl 2ml Vial) 100 mcg STK-MED ONCE .ROUTE ; Start 02/15/19 at 09:37; Stop 02/15/19 at 09:38; Status DC Prochlorperazine Edisylate (Compazine) 10 mg STK-MED ONCE .ROUTE ; Start 02/15/19 at 09:40; Stop 02/15/19 at 09:41; Status DC Clonidine HCl (Catapres) 0.1 mg PRN Q1HR PRN PO HYPERTENSION, SEE COMMENTS Last administered on 02/18/19at 00:14; Start 02/16/19 at 08:45 Vancomycin HCl 1 gm/Sodium Chloride 250 ml @ 250 mls/hr ONCE ONCE IV Last administered on 02/16/19at 14:45; Start 02/16/19 at 14:00; Stop 02/16/19 at 14:59; Status DC Pantoprazole Sodium (Protonix) 40 mg DAILYAC PO Last administered on 02/18/19at 07:35; Start 02/16/19 at 15:00 Ketorolac Tromethamine (Toradol 30mg Vial) 30 mg PRN Q6HRS PRN IV MILD PAIN; Start 02/18/19 at 08:00; Stop 02/23/19 at 07:59 Active Scripts Active Promethazine Hcl 25 Mg Tablet 25 Mg PO Q6H PRN MDD 1 Percocet 5-325 Mg Tablet (Oxycodone/Acetaminophen) 1 Each Tablet 1 Tab PO TID MDD 1 Amoxicillin 500 Mg Capsule 500 Mg PO TID 10 Days Reported Amitriptyline Hcl 50 Mg Tablet 50 Mg PO HS Losartan Potassium (Losartan Potassium) 25 Mg Tablet 25 Mg PO HS Clonazepam 0.5 Mg Tablet 0.5 Mg PO BID Lamotrigine 150 Mg Tablet 150 Mg PO DAILY Carvedilol (Carvedilol) 12.5 Mg Tablet 12.5 Mg PO BIDWMEALS Atorvastatin Calcium 10 Mg Tablet 10 Mg PO HS Requip (Ropinirole Hcl) 0.5 Mg Tablet 0.25 Mg PO DAILY Tizanidine Hcl 4 Mg Tablet 1 Tab PO TID PRN Vitals/I & O Vital Sign - Last 24 Hours 02/17/19 02/17/19 02/17/19 02/17/19 08:40 11:00 12:15 13:15 Temp 97.7 97.7 Pulse 81 Resp 16 16 16 B/P (MAP) 152/89 (110) Pulse Ox 96 92 O2 Delivery Room Air Room Air Room Air O2 Flow Rate 2.0 02/17/19 02/17/19 02/17/19 02/17/19 15:00 16:55 16:56 19:49 Temp 97.8 97.9 97.8 97.9 Pulse 94 94 83 Resp 18 14 18 B/P (MAP) 160/101 (120) 160/101 174/107 (129) Pulse Ox 92 95 O2 Delivery Room Air Room Air 02/17/19 02/17/19 02/17/19 02/17/19 20:00 20:25 20:54 20:59 Pulse 80 B/P (MAP) 153/92 O2 Delivery Room Air Room Air Room Air 02/17/19 02/17/19 02/18/19 02/18/19 21:59 23:37 00:09 00:14 Temp 97.8 97.8 Pulse 83 82 Resp 18 B/P (MAP) 172/107 (128) 166/102 Pulse Ox 96 O2 Delivery Room Air Room Air Room Air 02/18/19 02/18/19 02/18/19 02/18/19 01:28 03:31 07:00 07:35 Temp 97.4 97.6 97.4 97.6 Pulse 79 78 85 Resp 16 16 18 B/P (MAP) 143/86 (105) 159/91 (113) 159/109 (126) Pulse Ox 94 95 94 O2 Delivery Room Air Room Air Room Air Intake and Output 02/17/19 02/17/19 02/18/19 14:59 22:59 06:59 Intake Total 2080 ml 450 ml 800 ml Balance 2080 ml 450 ml 800 ml ELOY CORLEY MD February 18, 2019 08:37
[2019-02-18] MEDS: CARVEDILOL 12.5 MG TABLET. PO SCH ×2 (08:39→17:51)
[2019-02-18] MEDS: rOPINIRole 0.25 MG TABLET. PO SCH (08:39)
[2019-02-18] MEDS: clonazePAM 0.5 MG TABLET PO SCH ×2 (08:39→20:38)
[2019-02-18] MEDS: LACTOBACILLUS RHAMNOSUS GG 1 CAPSULE. PO SCH ×2 (08:39→20:38)
[2019-02-18] MEDS: lamoTRIgine 100 MG TABLET. PO SCH (08:40)
--- NOTE | 2019-02-18 10:08 | PATHOLOGY ---
[facility] Accession Number: [id number] . 01 Material submitted: . gallbladder - GALLBLADDER . 01 Clinical history: . Cholecystitis . 02 Diagnosis: Gallbladder, laparoscopic cholecystectomy: - Cholesterolosis. - Chronic and mild acute cholecystitis with focally increased eosinophils. - Focal lipogranulomata of gallbladder neck lymph node. . (JPM:mml; 02/17/2019) [facility]/02/18/2019 . 02 Comment: There are no calculi identified within the gallbladder lumen or specimen container. There is no evidence of malignancy. . (JPM:mml; 02/17/2019) . 02 Electronically signed: . Lalo Winchester MD, Pathologist NPI- [id number] . 01 Gross description: . The specimen is received in formalin, labeled "Rupali Jett, gallbladder", is an intact, collapsed gallbladder measuring 7.4 cm in length and 3.5 cm in maximum diameter with a shaggy, yuan-purple serosa. There is a 0.7 x 0.4 x 0.3 cm soft lymph node identified in the region of the gallbladder neck. The cystic duct is patent. The gallbladder lumen contains yellow-brown, viscous bile and no discrete calculi. The mucosa is julio-brown with cholesterolosis. The wall is edematous and is 0.2 cm in average thickness. [employer] tissue is submitted in A1. ([facility]; 02/16/2019) SHS/SHS . 02 Pathologist provided ICD-10: K82.4, K81.2 . 02 CPT . 133958 Specimen Comment: A courtesy copy of this report has been sent to Specimen Comment: [phone], , . Specimen Comment: Report sent to ,DR MULTANI / DR LUX Performed at: 01 [facility] [address], [place], [place] [id number] MD Rudy Bond MD Phone: [phone] Performed at: 02 [facility] [address] [place], [place] [id number] MD Lalo Winchester MD Phone: [phone]
[2019-02-18] MEDS: KETOROLAC 30 MG/ML VIAL. IV PRN ×2 (11:48→20:55)
--- NOTE | 2019-02-18 11:54 | PDOC ---
Infectious Disease Note Subjective: Subjective pt says abdo pain is improving though slowly has migraine headache,recieved toradol No nausea and vomiting eating lunch Says been up walking No F/C/S ROS: ROS Negative except for above. Vital Signs: Vital Signs Vital Signs Date Time Temp Pulse Resp B/P (MAP) Pulse Ox O2 Delivery O2 Flow Rate FiO2 02/18/19 11:00 97.6 80 16 142/86 (104) 94 Room Air 97.6 02/17/19 13:15 2.0 Physical Exam: PHYSICAL EXAM GENERAL: Lying down, alert, NAD HEENT: Pupils equally round, reactive. Normal conjunctivae. Oropharynx pink and moist. NECK: Supple. LUNGS: Clear to auscultation. HEART: S1 and S2. ABDOMEN: Obese, soft and mildly tender with bowel sounds present. EXTREMITIES: No gross edema or cyanosis. SKIN: Warm without generalized rash. NEUROLOGIC: Alert and oriented x 3. Medications: Inpatient Meds: Current Medications Medications (Trade) Dose Ordered Sig/Joey Start Time Stop Time Status Last Admin Dose Admin Acetaminophen/ Hydrocodone Bitart (Lortab 7.5/325) 1 tab PRN Q6HRS PRN 02/13/19 12:45 02/18/19 07:35 1 TAB Amitriptyline HCl (Elavil) 50 mg HS 02/13/19 00:45 02/17/19 20:55 50 MG Atorvastatin Calcium (Lipitor) 10 mg HS 02/13/19 00:45 02/17/19 20:54 10 MG Bupivacaine HCl/ Epinephrine Bitart (Sensorcain-Mpf Epi 0.5%-1:665606) 30 ml STK-MED ONCE 02/15/19 06:09 02/15/19 07:09 DC 02/15/19 08:24 7 ML Carvedilol (Coreg) 12.5 mg BIDWMEALS 02/13/19 00:45 02/18/19 08:39 12.5 MG Cefazolin Sodium 100 ml @ As Directed STK-MED ONCE 02/15/19 07:49 02/15/19 07:50 DC Cefazolin Sodium/ Dextrose 50 ml @ 100 mls/hr 1X PREOP PRN 02/15/19 06:00 02/15/19 18:00 DC 02/15/19 07:50 100 MLS/HR Cellulose (Surgicel Hemostat 4x8) 1 each STK-MED ONCE 02/15/19 06:09 02/15/19 07:09 DC Clonazepam (KlonoPIN) 0.5 mg BID 02/13/19 00:45 02/18/19 08:39 0.5 MG Clonidine HCl (Catapres) 0.1 mg PRN Q1HR PRN 02/16/19 08:45 02/18/19 00:14 0.1 MG Dexamethasone Sodium Phosphate (Decadron) 4 mg STK-MED ONCE 02/15/19 06:01 02/15/19 07:02 DC Fentanyl Citrate (Fentanyl 2ml Vial) 100 mcg STK-MED ONCE 02/15/19 09:37 02/15/19 09:38 DC Glycopyrrolate (Robinul) 1 mg STK-MED ONCE 02/15/19 08:24 02/15/19 08:25 DC Hydralazine HCl (Apresoline Inj) 20 mg STK-MED ONCE 02/15/19 09:03 02/15/19 09:04 DC Hydromorphone HCl (Dilaudid) 0.5 mg PRN Q10MIN PRN 02/15/19 07:45 02/15/19 18:00 DC Info (CONTRAST GIVEN -- Rx MONITORING) 1 each PRN DAILY PRN 02/12/19 21:30 02/14/19 21:29 DC Iohexol (Omnipaque 300 Mg/ml) 50 ml STK-MED ONCE 02/15/19 06:09 02/15/19 07:09 DC Ketorolac Tromethamine (Toradol 30mg Vial) 30 mg PRN Q6HRS PRN 02/18/19 08:00 02/23/19 07:59 02/18/19 11:48 30 MG Ketorolac Tromethamine (Toradol For Or Only) 30 mg STK-MED ONCE 02/15/19 08:34 02/15/19 08:35 DC Labetalol HCl (Normodyne Iv Push) 5 mg PRN Q10MIN PRN 02/12/19 22:30 Lactobacillus Rhamnosus (Culturelle) 1 cap BID 02/14/19 21:00 02/18/19 08:39 1 CAP Lamotrigine (LaMICtal) 150 mg DAILY 02/13/19 00:45 02/18/19 08:40 150 MG Lidocaine HCl (Lidocaine Pf 2% Vial) 5 ml STK-MED ONCE 02/15/19 06:58 02/15/19 06:59 DC Lidocaine HCl (Xylocaine-Mpf 1% 2ml Vial) 2 ml 1X PRN PRN 02/15/19 07:45 02/15/19 18:00 DC Losartan Potassium (Cozaar) 25 mg HS 02/13/19 00:45 02/17/19 20:54 25 MG Midazolam HCl (Versed) 2 mg STK-MED ONCE 02/15/19 07:51 02/15/19 07:52 DC Morphine Sulfate (Morphine Sulfate) 1 mg PRN Q10MIN PRN 02/15/19 07:45 02/15/19 18:00 DC Neostigmine Methylsulfate (Neostigmine Methylsulfate) 5 mg STK-MED ONCE 02/15/19 08:25 02/15/19 08:26 DC Ondansetron HCl (Zofran) 4 mg PRN Q6HRS PRN 02/15/19 07:45 02/15/19 18:00 DC Oxycodone/ Acetaminophen (Percocet 5/325) 2 tab PRN Q4HRS PRN 02/15/19 09:45 Pantoprazole Sodium (Protonix) 40 mg DAILYAC 02/16/19 15:00 02/18/19 07:35 40 MG Piperacillin Sod/ Tazobactam Sod (Zosyn Per Pharmacy) 1 each PRN DAILY PRN 02/13/19 11:30 Piperacillin Sod/ Tazobactam Sod 3.375 gm/Sodium Chloride 50 ml @ 100 mls/hr Q6HRS 02/13/19 12:00 02/18/19 11:49 100 MLS/HR Prochlorperazine Edisylate (Compazine) 10 mg STK-MED ONCE 02/15/19 09:40 02/15/19 09:41 DC Promethazine HCl (Phenergan) 25 mg PRN Q6HRS PRN 02/13/19 00:45 02/17/19 16:56 25 MG Propofol 20 ml @ As Directed STK-MED ONCE 02/15/19 06:58 02/15/19 06:59 DC Ringer's Solution 1,000 ml @ 30 mls/hr Q24H 02/15/19 07:41 02/15/19 19:40 DC Rocuronium [place] (Zemuron) 50 mg STK-MED ONCE 02/15/19 08:25 02/15/19 08:26 DC Ropinirole HCl (Requip) 0.25 mg DAILY 02/13/19 00:45 02/18/19 08:39 0.25 MG Sevoflurane (Ultane) 60 ml STK-MED ONCE 02/15/19 06:58 02/15/19 06:59 DC Sincalide 2.39 mcg/Sodium Chloride 30 ml @ 120 mls/hr 1X ONCE 02/13/19 16:00 02/13/19 16:14 DC 02/13/19 17:02 120 MLS/HR Sodium Chloride 1,000 ml @ 125 mls/hr Q8H 02/13/19 01:30 02/17/19 08:11 DC 02/17/19 03:52 125 MLS/HR Tizanidine HCl (Zanaflex) 4 mg PRN TID PRN 02/13/19 00:45 Vancomycin HCl 1 gm/Sodium Chloride 250 ml @ 250 mls/hr ONCE ONCE 02/16/19 14:00 02/16/19 14:59 DC 02/16/19 14:45 250 MLS/HR Labs: Micro RUN DATE: 02/16/19 PAGE 1 RUN TIME: 08 [facility] [address] [place] [address] Lalo Winchester M.D., Vice President Quality Improvement PATIENT: SLOANE CHI ACCT: [id number] LOC: [address] [place] [address] U: [id number] AGE/SX: 43/F ROOM: 2 RE02/12/[address]: WILBER MULTANI III DO : 1975 BED: 1 DIS: STATUS: ADM IN TLOC: ----- SPEC #: [id number] ALYSSA: 02/12/19 STATUS: COMP REQ #: [id number] RECD: 02/12/19 [facility] DR: MIRIAN GILBERT DO SOURCE: BLOOD ENTR: 02/12/[address] [facility] [address]: RENUKA [facility]X [facility]: ORDERED: BCULT Procedure Result BLOOD CULTURE Final GRAM POSITIVE COCCI IN CLUSTERS IN 1 OF 2 BOTTLES OF A SINGLE SET COLLECTED. CALLED TO MANAV MORIN 6S 02/16/19 AT 0802 BY Yusef SIMPSON. CULTURE HAS BEEN SENT TO [facility] FOR FURTHER IDENTIFICATION. Objective: Assessment: GPC bacteremia (1 of 2 bottles) from 02/12, likely contaminant,ID and CRISPIN still Pending per my discussion with micro lab s/p lap cholecystectomy, 02/15 pre-op dexamethasone & Cefazolin Leukocytosis, better Diarrhea Lactic acidosis Morbid obesity, BMI 44 Diabetes HTN Nausea and vomiting Plan: Plan of Care cont Zosyn since 02/13 Vanc one time dose, 02/16 awaiting [facility]PC ID,still pending Stool studies per GI Maintain aspiration precaution Pain management per primary KIRIT MACHUCA MD February 18, 2019 11:54
--- NOTE | 2019-02-18 12:46 | PDOC ---
PROGRESS NOTES Chief Complaint Chief Complaint Symptomatic cholecystitis at this post laparoscopic cholecystectomy 02/15/19 GPC bacteremia 1 out of 2 bottles morbid obesity, BMI 45 History of Present Illness History of Present Illness she is feeling well Cleared from GS and GI perspective to go home But GPC bacteremia specification and identification is still pending Plan need to wait for cultures before discharging Vitals Vitals Vital Signs Date Time Temp Pulse Resp B/P (MAP) Pulse Ox O2 Delivery O2 Flow Rate FiO2 02/18/19 11:00 97.6 80 16 142/86 (104) 94 Room Air 97.6 02/17/19 13:15 2.0 Physical Exam Physical Exam GENERAL: Lying down, alert, NAD HEENT: Pupils equally round, reactive. Normal conjunctivae. Oropharynx pink and moist. NECK: Supple. LUNGS: Clear to auscultation. HEART: S1 and S2. ABDOMEN: Obese, soft and mildly tender with bowel sounds present. EXTREMITIES: No gross edema or cyanosis. SKIN: Warm without generalized rash. NEUROLOGIC: Alert and oriented x 3. General: Alert, Oriented X3, Cooperative, No acute distress Heart: Regular rate, Normal S1, Normal S2, No murmurs Abdomen: Soft (tender at incisions) Extremities: No clubbing, No cyanosis Skin: No rashes, No breakdown Review of Systems Review of Systems A 14 point ROS was completed with the following noted as positive: Other systems reviewed and negative. \CONSTITUTIONAL: No fever or chills EYES: No recent changes SKIN: No rash or itching CARDIOVASCULAR: No chest pain, syncope, palpitations, or edema RESPIRATORY: No SOB or cough GASTROINTESTINAL: No nausea, vomiting or abdominal pain NEUROLOGICAL: No headaches or weakness ENDOCRINE: No cold or heat intolerance GENITOURINARY: No urgency or frequency of urination MUSCULOSKELETAL: No back pain or joint pain LYMPHATICS: No enlarged lymph nodes PSYCHIATRIC: No anxiety or depression Comment Review of Relevant I have reviewed the following items vielka (where applicable) has been applied. Labs Laboratory Tests Test 02/17/19 01:40 02/17/19 03:25 Clostridium difficile Toxin B Gene Negative (Negative) White Blood Count 7.8 x10^3/uL (4.0-11.0) Red Blood Count 3.93 x10^6/uL (3.50-5.40) Hemoglobin 11.7 g/dL (12.0-15.5) Hematocrit 34.9 % (36.0-47.0) Mean Corpuscular Volume 89 fL (79-100) Mean Corpuscular Hemoglobin 30 pg (25-35) Mean Corpuscular Hemoglobin Concent 34 g/dL (31-37) Red Cell Distribution Width 12.8 % (11.5-14.5) Platelet Count 210 x10^3/uL (140-400) Neutrophils (%) (Auto) 53 % (31-73) Lymphocytes (%) (Auto) 38 % (24-48) Monocytes (%) (Auto) 5 % (0-9) Eosinophils (%) (Auto) 3 % (0-3) Basophils (%) (Auto) 1 % (0-3) Neutrophils # (Auto) 4.1 x10^3uL (1.8-7.7) Lymphocytes # (Auto) 3.0 x10^3/uL (1.0-4.8) Monocytes # (Auto) 0.4 x10^3/uL (0.0-1.1) Eosinophils # (Auto) 0.3 x10^3/uL (0.0-0.7) Basophils # (Auto) 0.0 x10^3/uL (0.0-0.2) Erythrocyte Sedimentation Rate 22 (0-25) Total Bilirubin 0.3 mg/dL (0.2-1.0) Direct Bilirubin 0.1 mg/dL (0.0-0.2) Aspartate Amino Transf (AST/SGOT) 20 U/L (15-37) Alanine Aminotransferase (ALT/SGPT) 30 U/L (14-59) Alkaline Phosphatase 53 U/L (46-116) Total Protein 6.2 g/dL (6.4-8.2) Albumin 3.0 g/dL (3.4-5.0) Microbiology 02/12/19 Blood Culture - Final, Complete Medications Current Medications Sodium Chloride 1,000 ml @ 1,000 mls/hr 1X ONCE IV Last administered on 02/12/19at 19:35; Start 02/12/19 at 20:00; Stop 02/12/19 at 20:59; Status DC Ondansetron HCl (Zofran) 4 mg 1X ONCE IV Last administered on 02/12/19at 19:35; Start 02/12/19 at 20:00; Stop 02/12/19 at 20:01; Status DC Sodium Chloride 1,000 ml @ 1,000 mls/hr 1X ONCE IV Last administered on 02/12/19at 20:47; Start 02/12/19 at 21:00; Stop 02/12/19 at 21:59; Status DC Ketorolac Tromethamine (Toradol 30mg Vial) 30 mg 1X ONCE IV Last administered on 02/12/19at 20:47; Start 02/12/19 at 20:45; Stop 02/12/19 at 20:46; Status DC Iohexol (Omnipaque 300 Mg/ml) 60 ml 1X ONCE IV Last administered on 02/12/19at 21:41; Start 02/12/19 at 21:30; Stop 02/12/19 at 21:31; Status DC Info (CONTRAST GIVEN -- Rx MONITORING) 1 each PRN DAILY PRN MC SEE COMMENTS; Start 02/12/19 at 21:30; Stop 02/14/19 at 21:29; Status DC Sodium Chloride 1,000 ml @ 1,000 mls/hr 1X ONCE IV Last administered on 02/12/19at 22:05; Start 02/12/19 at 21:45; Stop 02/12/19 at 22:44; Status DC Piperacillin Sod/ Tazobactam Sod 3.375 gm/Sodium Chloride 50 ml @ 100 mls/hr 1X ONCE IV Last administered on 02/12/19at 22:05; Start 02/12/19 at 22:00; Stop 02/12/19 at 22:29; Status DC Ondansetron HCl (Zofran) 4 mg PRN Q8HRS PRN IV NAUSEA/VOMITING Last administered on 02/13/19at 17:09; Start 02/12/19 at 22:00; Stop 02/13/19 at 21:59; Status DC Labetalol HCl (Normodyne Iv Push) 5 mg 1X ONCE IVP Last administered on 02/12/19at 22:42; Start 02/12/19 at 22:30; Stop 02/12/19 at 22:31; Status DC Labetalol HCl (Normodyne Iv Push) 5 mg PRN Q10MIN PRN IVP HYPERTENSION, SEE COMMENTS; Start 02/12/19 at 22:30 Amitriptyline HCl (Elavil) 50 mg HS PO Last administered on 02/17/19 20:55; Start 02/13/19 at 00:45 Atorvastatin Calcium (Lipitor) 10 mg HS PO Last administered on 02/17/19 20:54; Start 02/13/19 at 00:45 Carvedilol (Coreg) 12.5 mg BIDWMEALS PO Last administered on 02/18/19 08:39; Start 02/13/19 at 00:45 Clonazepam (KlonoPIN) 0.5 mg BID PO Last administered on 02/18/19 08:39; Start 02/13/19 at 00:45 Losartan Potassium (Cozaar) 25 mg HS PO Last administered on 02/17/19 20:54; Start 02/13/19 at 00:45 Oxycodone/ Acetaminophen (Percocet 5/325) 1 tab TID PO ; Start 02/13/19 at 09:00; Stop 02/13/19 at 12:39; Status DC Lamotrigine (LaMICtal) 150 mg DAILY PO Last administered on 02/18/19 08:40; Start 02/13/19 at 00:45 Promethazine HCl (Phenergan) 25 mg PRN Q6HRS PRN PO NAUSEA/VOMITING Last administered on 02/17/19 16:56; Start 02/13/19 at 00:45 Ropinirole HCl (Requip) 0.25 mg DAILY PO Last administered on 02/18/19 08:39; Start 02/13/19 at 00:45 Tizanidine HCl (Zanaflex) 4 mg PRN TID PRN PO spasms; Start 02/13/19 at 00:45 Morphine Sulfate (Morphine Sulfate) 2 mg PRN Q2HR PRN IV MODERATE PAIN Last administered on 02/18/19 00:09; Start 02/13/19 at 00:45 Ketorolac Tromethamine (Toradol 30mg Vial) 30 mg PRN Q6HRS PRN IV MILD PAIN Last administered on 02/16/19 12:03; Start 02/13/19 at 00:45; Stop 02/18/19 at 00:44; Status DC Sodium Chloride 1,000 ml @ 125 mls/hr Q8H IV Last administered on 02/17/19 03:52; Start 02/13/19 at 01:30; Stop 02/17/19 at 08:11; Status DC Iohexol (Omnipaque 300 Mg/ml) 100 ml STK-MED ONCE .ROUTE Last administered on 02/15/19at 08:24; Start 02/13/19 at 05:06; Stop 02/13/19 at 05:07; Status DC Piperacillin Sod/ Tazobactam Sod (Zosyn Per Pharmacy) 1 each PRN DAILY PRN MC SEE COMMENTS; Start 02/13/19 at 11:30 Piperacillin Sod/ Tazobactam Sod 3.375 gm/Sodium Chloride 50 ml @ 100 mls/hr Q6HRS IV Last administered on 02/18/19at 11:49; Start 02/13/19 at 12:00 Acetaminophen/ Hydrocodone Bitart (Lortab 7.5/325) 1 tab PRN Q6HRS PRN PO MODERATE PAIN Last administered on 02/18/19at 07:35; Start 02/13/19 at 12:45 Fentanyl Citrate (Fentanyl 2ml Vial) 50 mcg PRN Q3HRS PRN IV SEVERE PAIN Last administered on 02/17/19at 08:10; Start 02/13/19 at 15:15 Sincalide 2.39 mcg/Sodium Chloride 30 ml @ 120 mls/hr 1X ONCE IV Last administered on 02/13/19at 17:02; Start 02/13/19 at 16:00; Stop 02/13/19 at 16:14; Status DC Cefazolin Sodium/ Dextrose 50 ml @ 100 mls/hr 1X PREOP PRN IV consumer affairs specialist to or Last administered on 02/15/19at 07:50; Start 02/15/19 at 06:00; Stop 02/15/19 at 18:00; Status DC Lactobacillus Rhamnosus (Culturelle) 1 cap BID PO Last administered on 02/18/19at 08:39; Start 02/14/19 at 21:00 Fentanyl Citrate (Fentanyl 2ml Vial) 100 mcg STK-MED ONCE .ROUTE ; Start 02/15/19 at 06:56; Stop 02/15/19 at 06:57; Status DC Rocuronium [place] (Zemuron) 50 mg STK-MED ONCE .ROUTE ; Start 02/15/19 at 06:56; Stop 02/15/19 at 06:57; Status DC Sevoflurane (Ultane) 60 ml STK-MED ONCE IH ; Start 02/15/19 at 06:58; Stop 02/15/19 at 06:59; Status DC Propofol 20 ml @ As Directed STK-MED ONCE IV ; Start 02/15/19 at 06:58; Stop 02/15/19 at 06:59; Status DC Lidocaine HCl (Lidocaine Pf 2% Vial) 5 ml STK-MED ONCE .ROUTE ; Start 02/15/19 at 06:58; Stop 02/15/19 at 06:59; Status DC Ondansetron HCl (Zofran) 4 mg STK-MED ONCE .ROUTE ; Start 02/15/19 at 06:58; Stop 02/15/19 at 06:59; Status DC Dexamethasone Sodium Phosphate (Decadron) 4 mg STK-MED ONCE .ROUTE ; Start 02/15/19 at 06:01; Stop 02/15/19 at 07:02; Status DC Bupivacaine HCl/ Epinephrine Bitart (Sensorcain-Mpf Epi 0.5%-1:422092) 30 ml STK-MED ONCE .ROUTE Last administered on 02/15/19at 08:24; Start 02/15/19 at 06:09; Stop 02/15/19 at 07:09; Status DC Iohexol (Omnipaque 300 Mg/ml) 50 ml STK-MED ONCE .ROUTE ; Start 02/15/19 at 06:09; Stop 02/15/19 at 07:09; Status DC Cellulose (Surgicel Hemostat 4x8) 1 each STK-MED ONCE .ROUTE ; Start 02/15/19 at 06:09; Stop 02/15/19 at 07:09; Status DC Ondansetron HCl (Zofran) 4 mg PRN Q6HRS PRN IV NAUSEA/VOMITING; Start 02/15/19 at 07:45; Stop 02/15/19 at 18:00; Status DC Fentanyl Citrate (Fentanyl 2ml Vial) 25 mcg PRN Q5MIN PRN IV MILD PAIN; Start 02/15/19 at 07:45; Stop 02/15/19 at 18:00; Status DC Fentanyl Citrate (Fentanyl 2ml Vial) 50 mcg PRN Q5MIN PRN IV MODERATE TO SEVERE PAIN Last administered on 02/15/19at 09:55; Start 02/15/19 at 07:45; Stop 02/15/19 at 18:00; Status DC Morphine Sulfate (Morphine Sulfate) 1 mg PRN Q10MIN PRN IV SEVERE PAIN; Start 02/15/19 at 07:45; Stop 02/15/19 at 18:00; Status DC Ringer's Solution 1,000 ml @ 30 mls/hr Q24H IV ; Start 02/15/19 at 07:41; Stop 02/15/19 at 19:40; Status DC Lidocaine HCl (Xylocaine-Mpf 1% 2ml Vial) 2 ml 1X PRN PRN ID IV START; Start 02/15/19 at 07:45; Stop 02/15/19 at 18:00; Status DC Hydromorphone HCl (Dilaudid) 0.5 mg PRN Q10MIN PRN IV SEV PAIN, Second choice; Start 02/15/19 at 07:45; Stop 02/15/19 at 18:00; Status DC Prochlorperazine Edisylate (Compazine) 5 mg PACU PRN PRN IV NAUSEA, MRX1 Last administered on 02/15/19at 09:41; Start 02/15/19 at 07:45; Stop 02/15/19 at 18:00; Status DC Cefazolin Sodium 100 ml @ As Directed STK-MED ONCE IV ; Start 02/15/19 at 07:49; Stop 02/15/19 at 07:50; Status DC Midazolam HCl (Versed) 2 mg STK-MED ONCE .ROUTE ; Start 02/15/19 at 07:51; Stop 02/15/19 at 07:52; Status DC Glycopyrrolate (Robinul) 1 mg STK-MED ONCE .ROUTE ; Start 02/15/19 at 08:24; Stop 02/15/19 at 08:25; Status DC Neostigmine Methylsulfate (Neostigmine Methylsulfate) 5 mg STK-MED ONCE .ROUTE ; Start 02/15/19 at 08:25; Stop 02/15/19 at 08:26; Status DC Rocuronium [place] (Zemuron) 50 mg STK-MED ONCE .ROUTE ; Start 02/15/19 at 08:25; Stop 02/15/19 at 08:26; Status DC Ketorolac Tromethamine (Toradol For Or Only) 30 mg STK-MED ONCE INJ ; Start 02/15/19 at 08:34; Stop 02/15/19 at 08:35; Status DC Hydralazine HCl (Apresoline Inj) 20 mg STK-MED ONCE .ROUTE ; Start 02/15/19 at 09:03; Stop 02/15/19 at 09:04; Status DC Oxycodone/ Acetaminophen (Percocet 5/325) 1 tab PRN Q4HRS PRN PO MILD PAIN Last administered on 02/17/19at 20:59; Start 02/15/19 at 09:30 Oxycodone/ Acetaminophen (Percocet 5/325) 2 tab PRN Q4HRS PRN PO SEVERE PAIN; Start 02/15/19 at 09:45 Fentanyl Citrate (Fentanyl 2ml Vial) 100 mcg STK-MED ONCE .ROUTE ; Start 02/15/19 at 09:37; Stop 02/15/19 at 09:38; Status DC Prochlorperazine Edisylate (Compazine) 10 mg STK-MED ONCE .ROUTE ; Start 02/15/19 at 09:40; Stop 02/15/19 at 09:41; Status DC Clonidine HCl (Catapres) 0.1 mg PRN Q1HR PRN PO HYPERTENSION, SEE COMMENTS Last administered on 02/18/19at 00:14; Start 02/16/19 at 08:45 Vancomycin HCl 1 gm/Sodium Chloride 250 ml @ 250 mls/hr ONCE ONCE IV Last administered on 02/16/19at 14:45; Start 02/16/19 at 14:00; Stop 02/16/19 at 14:59; Status DC Pantoprazole Sodium (Protonix) 40 mg DAILYAC PO Last administered on 02/18/19at 07:35; Start 02/16/19 at 15:00 Ketorolac Tromethamine (Toradol 30mg Vial) 30 mg PRN Q6HRS PRN IV MILD PAIN Last administered on 02/18/19at 11:48; Start 02/18/19 at 08:00; Stop 02/23/19 at 07:59 Active Scripts Active Promethazine Hcl 25 Mg Tablet 25 Mg PO Q6H PRN MDD 1 Percocet 5-325 Mg Tablet (Oxycodone/Acetaminophen) 1 Each Tablet 1 Tab PO TID MDD 1 Amoxicillin 500 Mg Capsule 500 Mg PO TID 10 Days Reported Amitriptyline Hcl 50 Mg Tablet 50 Mg PO HS Losartan Potassium (Losartan Potassium) 25 Mg Tablet 25 Mg PO HS Clonazepam 0.5 Mg Tablet 0.5 Mg PO BID Lamotrigine 150 Mg Tablet 150 Mg PO DAILY Carvedilol (Carvedilol) 12.5 Mg Tablet 12.5 Mg PO BIDWMEALS Atorvastatin Calcium 10 Mg Tablet 10 Mg PO HS Requip (Ropinirole Hcl) 0.5 Mg Tablet 0.25 Mg PO DAILY Tizanidine Hcl 4 Mg Tablet 1 Tab PO TID PRN Vitals/I & O Vital Sign - Last 24 Hours 02/17/19 02/17/19 02/17/19 02/17/19 13:15 15:00 16:55 16:56 Temp 97.8 97.8 Pulse 94 94 Resp 18 14 B/P (MAP) 160/101 (120) 160/101 Pulse Ox 92 92 O2 Delivery Room Air O2 Flow Rate 2.0 02/17/19 02/17/19 02/17/19 02/17/19 19:49 20:00 20:54 20:59 Temp 97.9 97.9 Pulse 83 80 Resp 18 B/P (MAP) 174/107 (129) 153/92 Pulse Ox 95 O2 Delivery Room Air Room Air Room Air 02/17/19 02/17/19 02/18/19 02/18/19 21:59 23:37 00:09 00:14 Temp 97.8 97.8 Pulse 83 82 Resp 18 B/P (MAP) 172/107 (128) 166/102 Pulse Ox 96 O2 Delivery Room Air Room Air Room Air 02/18/19 02/18/19 02/18/19 02/18/19 01:28 03:31 07:00 07:35 Temp 97.4 97.6 97.4 97.6 Pulse 79 78 85 Resp 16 16 18 B/P (MAP) 143/86 (105) 159/91 (113) 159/109 (126) Pulse Ox 94 95 94 O2 Delivery Room Air Room Air Room Air 02/18/19 02/18/19 02/18/19 02/18/19 08:00 08:39 08:40 11:00 Temp 97.6 97.6 Pulse 85 80 Resp 18 16 B/P (MAP) 159/109 142/86 (104) Pulse Ox 94 94 O2 Delivery Room Air Room Air Room Air Intake and Output 02/17/19 02/17/19 02/18/19 15:00 23:00 07:00 Intake Total 2080 ml 450 ml 800 ml Balance 2080 ml 450 ml 800 ml BARTOLO BARRON MD February 18, 2019 12:46
[2019-02-18] MEDS ORDERED: LOPERAMIDE 2 MG CAPSULE PO PRN (13:30)
--- NOTE | 2019-02-18 13:31 | PDOC ---
Subjective: Subjective: Better today - "burning" RUQ pain w/ movement. Tolerating PO. Diarrhea is the same, would like to try Imodium. Hoping to DC soon, wondering when she can return to work. Objective: Vital Signs: Vital Signs Date Time Temp Pulse Resp B/P (MAP) Pulse Ox O2 Delivery O2 Flow Rate FiO2 02/18/19 11:00 97.6 80 16 142/86 (104) 94 Room Air 97.6 02/17/19 13:15 2.0 PE: GEN: NAD - up to chair eating lunch LUNGS: CTAB HEART: RRR ABD: less tender NEURO/PSYCH: A & O 3 A/P: RUQ pain s/p [place] GPC bacteremia - per ID Loose stools - C Diff neg, culture pending -- Okay to try Imodium. KAITLYN MUNOZ February 18, 2019 13:31
[2019-02-18] MEDS: ATORVASTATIN CALCIUM 10 MG TABLET. PO SCH (20:38)
[2019-02-18] MEDS: AMITRIPTYLINE HCL 25 MG TABLET. PO SCH (20:39)
[2019-02-18] MEDS: LOSARTAN POTASSIUM 25 MG TABLET. PO SCH (20:39)
[2019-02-19] MEDS: fentaNYL PF VIAL 100 MCG/2 ML VIAL IV PRN ×2 (00:31→03:42)
[2019-02-19 03:00] VITALS: BP 162/102
[2019-02-19] MEDS: PIPERACILLIN/TAZOBACTAM 3.375 GM in IV NORMAL SALINE 50ML 50 ML IV SCH (05:44)
[2019-02-19] MEDS: HYDROcodone/APAP 7.5/325MG 1 TAB TABLET PO PRN (05:50)
[2019-02-19 07:20] VITALS: BP 154/84
[2019-02-19] MEDS: KETOROLAC 30 MG/ML VIAL. IV PRN ×2 (08:51→14:59)
[2019-02-19] MEDS: LACTOBACILLUS RHAMNOSUS GG 1 CAPSULE. PO SCH (08:51)
[2019-02-19] MEDS: rOPINIRole 0.25 MG TABLET. PO SCH (08:51)
[2019-02-19] MEDS: PANTOPRAZOLE 40 MG TABLET.DR. PO SCH (08:51)
--- NOTE | 2019-02-19 08:51 | PDOC ---
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
[2019-02-19] MEDS: clonazePAM 0.5 MG TABLET PO SCH (08:52)
[2019-02-19] MEDS: lamoTRIgine 100 MG TABLET. PO SCH (08:52)
[2019-02-19] MEDS: CARVEDILOL 12.5 MG TABLET. PO SCH (08:52)
--- NOTE | 2019-02-19 09:21 | PDOC ---
Infectious Disease Note Subjective: Subjective Pt says feels better ,wants to be dc home later today has migraine headache, No nausea and vomiting Says been up walking No F/C/S ROS: ROS Negative except for above. Vital Signs: Vital Signs Vital Signs Date Time Temp Pulse Resp B/P (MAP) Pulse Ox O2 Delivery O2 Flow Rate FiO2 02/19/19 08:52 85 154/84 02/19/19 08:50 94 Room Air 2.0 02/19/19 07:20 97.4 17 97.4 Physical Exam: PHYSICAL EXAM GENERAL: Lying down, alert, NAD HEENT: Pupils equally round, reactive. Normal conjunctivae. Oropharynx pink and moist. NECK: Supple. LUNGS: Clear to auscultation. HEART: S1 and S2. ABDOMEN: Obese, soft and mildly tender with bowel sounds present. EXTREMITIES: No gross edema or cyanosis. SKIN: Warm without generalized rash. NEUROLOGIC: Alert and oriented x 3. Medications: Inpatient Meds: Current Medications Medications (Trade) Dose Ordered Sig/Joey Start Time Stop Time Status Last Admin Dose Admin Acetaminophen/ Hydrocodone Bitart (Lortab 7.5/325) 1 tab PRN Q6HRS PRN 02/13/19 12:45 02/19/19 05:50 1 TAB Amitriptyline HCl (Elavil) 50 mg HS 02/13/19 00:45 02/18/19 20:39 50 MG Atorvastatin Calcium (Lipitor) 10 mg HS 02/13/19 00:45 02/18/19 20:38 10 MG Bupivacaine HCl/ Epinephrine Bitart (Sensorcain-Mpf Epi 0.5%-1:084157) 30 ml STK-MED ONCE 02/15/19 06:09 02/15/19 07:09 DC 02/15/19 08:24 7 ML Carvedilol (Coreg) 12.5 mg BIDWMEALS 02/13/19 00:45 02/19/19 08:52 12.5 MG Cefazolin Sodium 100 ml @ As Directed STK-MED ONCE 02/15/19 07:49 02/15/19 07:50 DC Cefazolin Sodium/ Dextrose 50 ml @ 100 mls/hr 1X PREOP PRN 02/15/19 06:00 02/15/19 18:00 DC 02/15/19 07:50 100 MLS/HR Cellulose (Surgicel Hemostat 4x8) 1 each STK-MED ONCE 02/15/19 06:09 02/15/19 07:09 DC Clonazepam (KlonoPIN) 0.5 mg BID 02/13/19 00:45 02/19/19 08:52 0.5 MG Clonidine HCl (Catapres) 0.1 mg PRN Q1HR PRN 02/16/19 08:45 02/18/19 00:14 0.1 MG Dexamethasone Sodium Phosphate (Decadron) 4 mg STK-MED ONCE 02/15/19 06:01 02/15/19 07:02 DC Fentanyl Citrate (Fentanyl 2ml Vial) 100 mcg STK-MED ONCE 02/15/19 09:37 02/15/19 09:38 DC Glycopyrrolate (Robinul) 1 mg STK-MED ONCE 02/15/19 08:24 02/15/19 08:25 DC Hydralazine HCl (Apresoline Inj) 20 mg STK-MED ONCE 02/15/19 09:03 02/15/19 09:04 DC Hydromorphone HCl (Dilaudid) 0.5 mg PRN Q10MIN PRN 02/15/19 07:45 02/15/19 18:00 DC Info (CONTRAST GIVEN -- Rx MONITORING) 1 each PRN DAILY PRN 02/12/19 21:30 02/14/19 21:29 DC Iohexol (Omnipaque 300 Mg/ml) 50 ml STK-MED ONCE 02/15/19 06:09 02/15/19 07:09 DC Ketorolac Tromethamine (Toradol 30mg Vial) 30 mg PRN Q6HRS PRN 02/18/19 08:00 02/23/19 07:59 02/19/19 08:51 30 MG Ketorolac Tromethamine (Toradol For Or Only) 30 mg STK-MED ONCE 02/15/19 08:34 02/15/19 08:35 DC Labetalol HCl (Normodyne Iv Push) 5 mg PRN Q10MIN PRN 02/12/19 22:30 Lactobacillus Rhamnosus (Culturelle) 1 cap BID 02/14/19 21:00 02/19/19 08:51 1 CAP Lamotrigine (LaMICtal) 150 mg DAILY 02/13/19 00:45 02/19/19 08:52 150 MG Lidocaine HCl (Lidocaine Pf 2% Vial) 5 ml STK-MED ONCE 02/15/19 06:58 02/15/19 06:59 DC Lidocaine HCl (Xylocaine-Mpf 1% 2ml Vial) 2 ml 1X PRN PRN 02/15/19 07:45 02/15/19 18:00 DC Loperamide HCl (Imodium) 2 mg PRN QID PRN 02/18/19 13:30 02/18/19 17:51 2 MG Losartan Potassium (Cozaar) 25 mg HS 02/13/19 00:45 02/18/19 20:39 25 MG Midazolam HCl (Versed) 2 mg STK-MED ONCE 02/15/19 07:51 02/15/19 07:52 DC Morphine Sulfate (Morphine Sulfate) 1 mg PRN Q10MIN PRN 02/15/19 07:45 02/15/19 18:00 DC Neostigmine Methylsulfate (Neostigmine Methylsulfate) 5 mg STK-MED ONCE 02/15/19 08:25 02/15/19 08:26 DC Ondansetron HCl (Zofran) 4 mg PRN Q6HRS PRN 02/15/19 07:45 02/15/19 18:00 DC Oxycodone/ Acetaminophen (Percocet 5/325) 2 tab PRN Q4HRS PRN 02/15/19 09:45 Pantoprazole Sodium (Protonix) 40 mg DAILYAC 02/16/19 15:00 02/19/19 08:51 40 MG Piperacillin Sod/ Tazobactam Sod (Zosyn Per Pharmacy) 1 each PRN DAILY PRN 02/13/19 11:30 Piperacillin Sod/ Tazobactam Sod 3.375 gm/Sodium Chloride 50 ml @ 100 mls/hr Q6HRS 02/13/19 12:00 02/19/19 05:44 100 MLS/HR Prochlorperazine Edisylate (Compazine) 10 mg STK-MED ONCE 02/15/19 09:40 02/15/19 09:41 DC Promethazine HCl (Phenergan) 25 mg PRN Q6HRS PRN 02/13/19 00:45 02/17/19 16:56 25 MG Propofol 20 ml @ As Directed STK-MED ONCE 02/15/19 06:58 02/15/19 06:59 DC Ringer's Solution 1,000 ml @ 30 mls/hr Q24H 02/15/19 07:41 02/15/19 19:40 DC Rocuronium [place] (Zemuron) 50 mg STK-MED ONCE 02/15/19 08:25 02/15/19 08:26 DC Ropinirole HCl (Requip) 0.25 mg DAILY 02/13/19 00:45 02/19/19 08:51 0.25 MG Sevoflurane (Ultane) 60 ml STK-MED ONCE 02/15/19 06:58 02/15/19 06:59 DC Sincalide 2.39 mcg/Sodium Chloride 30 ml @ 120 mls/hr 1X ONCE 02/13/19 16:00 02/13/19 16:14 DC 02/13/19 17:02 120 MLS/HR Sodium Chloride 1,000 ml @ 125 mls/hr Q8H 02/13/19 01:30 02/17/19 08:11 DC 02/17/19 03:52 125 MLS/HR Tizanidine HCl (Zanaflex) 4 mg PRN TID PRN 02/13/19 00:45 Vancomycin HCl 1 gm/Sodium Chloride 250 ml @ 250 mls/hr ONCE ONCE 02/16/19 14:00 02/16/19 14:59 DC 02/16/19 14:45 250 MLS/HR Labs: Micro RUN DATE: 02/16/19 PAGE 1 RUN TIME: 802 [facility] [address] [place] [address] Lalo Winchester M.D., Final Canoe Inspector PATIENT: SLOANE CHI ACCT: [id number] LOC: [address] [place] [address] U: [id number] AGE/SX: 43/F ROOM: 672 RE02/12/[address]: WILBER MULTANI III, DO : 1975 BED: 1 DIS: STATUS: ADM IN TLOC: --- SPEC #: [id number] ALYSSA: 02/12/19 STATUS: COMP REQ #: [id number] RECD: 02/12/[address]: MIRIAN GILBERT DO SOURCE: BLOOD ENTR: 02/12/[address]: RENUKA [facility]: ORDERED: BCULT Procedure Result BLOOD CULTURE Final GRAM POSITIVE COCCI IN CLUSTERS IN 1 OF 2 BOTTLES OF A SINGLE SET COLLECTED. CALLED TO MANAV Sanchez 02/16/19 AT 0802 BY Yusef SIMPSON. CULTURE HAS BEEN SENT TO LAB [facility] FOR FURTHER IDENTIFICATION. Objective: Assessment: GPC bacteremia (1 of 2 bottles) from 02/12, likely contaminant,ID and CRISPIN still Pending per my discussion with micro lab today possible contaminant s/p lap cholecystectomy, 02/15 pre-op dexamethasone & Cefazolin Leukocytosis, better Diarrhea Lactic acidosis Morbid obesity, BMI 44 Diabetes HTN Nausea and vomiting Plan: Plan of Care dc zosyn upon discharge transition to augmentin Vanc one time dose, 02/16 awaiting GPC ID,still pending per micro as of now Pt can be dc home and RN will f/u on BC results and call with results Pt may need to be rehosp depending on ID of the GPCs Pt understands D/W KIRIT BERKOWITZ MD February 19, 2019 09:21
--- NOTE | 2019-02-19 09:48 | PDOC ---
Subjective: Subjective: Has a headache. Abd pain better, tolerating PO. Diarrhea better w/ Imodium. Objective: Vital Signs: Vital Signs Date Time Temp Pulse Resp B/P (MAP) Pulse Ox O2 Delivery O2 Flow Rate FiO2 02/19/19 08:52 85 154/84 02/19/19 08:50 94 Room Air 2.0 02/19/19 07:20 97.4 17 97.4 Labs: STOOL CULTURE Final Final report STOOL CULT RES 1 Final No growth CAMPY Preliminary Preliminary report CAMPY RES 1 Preliminary Comment No Campylobacter species isolated. Performed at: [facility] - [facility] [address], [place], [place] [id number] Vice President & General Manager [employer] [place]: JENNIFER Griggs MD, Phone: [phone] SHIGA TOXIN PENDING PE: GEN: NAD LUNGS: CTAB HEART: RRR ABD: soft, less tender NEURO/PSYCH: A & O 3, less animated today A/P: S/p [place] GPC bacteremia - per ID Loose stools - better Headache -- Stable/improved GI-[place]. KAITLYN MUNOZ February 19, 2019 09:47
[2019-02-19 10:34] VITALS: BP 149/110
--- NOTE | 2019-02-19 10:45 | PDOC3 ---
Discharge Summary Visit Information Date of Admission: February 12, 2019 Date of Discharge: February 19, 2019 Admitting Diagnosis Comment: Symptomatic cholecystitis at this post laparoscopic cholecystectomy 02/15/19 GPC bacteremia 1 out of 2 bottles - slow growing organism morbid obesity, BMI 45 Brief Hospital Course Allergies Allergies Coded Allergies Type Severity Reaction Last Updated Verified Sulfa (Sulfonamide Antibiotics) Allergy Intermediate Rash 09/21/17 Yes codeine Allergy Intermediate Rash 09/21/17 Yes Vital Signs Vital Signs Date Time Temp Pulse Resp B/P (MAP) Pulse Ox O2 Delivery O2 Flow Rate FiO2 02/19/19 10:34 97.9 111 18 149/110 (123) 95 Room Air 97.9 02/19/19 08:50 2.0 Brief Hospital Course Ms. Jett is a 43 old obese female who was admitted for symptomatically cholelithiasis and underwent lap cholecystectomy with no complications. But course remarkable for GPC bacteremia 1 out of 2 bottles, very slow growing organism, took 4 days to grow in 1 bottle. COntaminant? Comanage with ID. No fever, nontoxic-appearing, normal white count, okay for by mouth Augmentin today after seven-day hospital stay with us Discussed with case management, social work, ID, [employer] etc. Discharge Information Condition at Discharge: Improved, Stable Follow Up: Weeks (GS 2 weeks post op ff up) Disposition/Orders: D/C to Home Scheduled Amitriptyline Hcl (Amitriptyline Hcl) 50 Mg Tablet, 50 MG PO HS for nerve pain/anxiety, (Reported) Entered as Reported by: CODI GUERRA RN on 02/12/192347 Last Taken: Unknown Dose on 02/11/19 Last Action: Continued on 02/13/1937 by CODI GUERRA RN Amoxicillin (Amoxicillin) 500 Mg Capsule, 500 MG PO TID for 10 Days, #30 Ref 0 Prescribed by: FREDDY HAYES PA-C on 09/21/17 1300 Atorvastatin Calcium (Atorvastatin Calcium) 10 Mg Tablet, 10 MG PO HS for FOR CHOLESTEROL, #30 Ref 0 (Reported) Entered as Reported by: CODI GUERRA RN on 02/12/192347 Last Taken: Unknown Dose on 02/11/19 Last Action: Continued on 02/13/1937 by CODI GUERRA RN Carvedilol (Carvedilol ) 12.5 Mg Tablet, 12.5 MG PO BIDWMEALS for CARDIAC, (Reported) Entered as Reported by: CODI GUERRA RN on 02/12/192347 Last Taken: Unknown Dose on 02/11/19 Last Action: Continued on 02/13/1937 by CODI GUERRA RN Clonazepam (Clonazepam) 0.5 Mg Tablet, 0.5 MG PO BID for anxiety/insomnia, (Reported) Entered as Reported by: CODI GUERRA RN on 02/12/192347 Last Taken: Unknown Dose on 02/11/19 Last Action: Continued on 02/13/1937 by CODI GUERRA RN Lamotrigine (Lamotrigine) 150 Mg Tablet, 150 MG PO DAILY for bipolar, (Reported) Entered as Reported by: CODI GUERRA RN on 02/12/192347 Last Taken: Unknown Dose on 02/11/19 Last Action: Converted on 02/13/1937 by CODI GUERRA RN Losartan Potassium (Losartan Potassium ) 25 Mg Tablet, 25 MG PO HS for HYPERTENSION, (Reported) Entered as Reported by: CODI GUERRA RN on 02/12/192347 Last Taken: Unknown Dose on 02/11/19 Last Action: Continued on 02/13/1937 by CODI GUERRA RN Oxycodone/Apap 5-325 (Percocet 5-325 Mg Tablet ) 1 Each Tablet, 1 TAB PO TID for pain MDD 1, #12 Prescribed by: BARTOLO BARRON on 02/16/191138 Ropinirole Hcl (Requip) 0.5 Mg Tablet, 0.25 MG PO DAILY for restless leg, (R eported) Entered as Reported by: CODI GUERRA RN on 02/12/192347 Last Taken: Unknown Dose on 02/11/192099 Last Action: Converted on 02/13/1937 by CODI GUERRA RN Scheduled PRN Promethazine Hcl (Promethazine Hcl) 25 Mg Tablet, 25 MG PO Q6H PRN for NAUSEA/VOMITING MDD 1, #60 Prescribed by: BARTOLO BARRON on 02/16/19 1139 Tizanidine Hcl (Tizanidine Hcl) 4 Mg Tablet, 1 TAB PO TID PRN for spasms, #90 (Reported) Entered as Reported by: CODI GUERRA RN on 02/12/19 0062 Last Action: Converted on 02/13/1937 by SERAFIN WINKLER CHERRIE Y MD February 19, 2019 10:45
[2019-02-19] MEDS: oxyCODONE/APAP 5/325 1 TAB TABLET PO PRN ×2 (12:21→17:21)
[2019-02-19 14:55] VITALS: BP 135/84
[2019-02-19] MEDS: PROMETHAZINE 12.5 MG TABLET. PO PRN (17:21)
--- NOTE | 2019-02-19 17:52 | NUR ---
Discharge Note: [facility] Discharge instructions and discharge home medications reviewed with Patient and a copy given. All questions have been answered and understanding verbalized. The following instructions and handouts were given: prescriptions Discontinued lines and drains: 20 gauge right ac, tip intact. patient tolerated well. Patient discharged to home with self care via mother.
[2019-02-19] MEDS ORDERED: AMOXICILLIN/K CLAV 875/125MG TABLET. PO SCH (21:00)
== END 2019-02-19 17:50 | disposition home or self-care (01) | DRG 418 ==
LOC: ER 18:52 → 6 SOUTH 21:40
PROVIDERS: ADMIT Internal Medicine; ATTEND Internal Medicine
PROC: BF101ZZ Fluoroscopy of Bile Ducts using Low Osmolar Contrast (ICD-10-PCS; 2019-02-15)
PROC: 0FT44ZZ Resection of Gallbladder, Percutaneous Endoscopic Approach (ICD-10-PCS; principal; 2019-02-15 08:00)
DX: K81.9 Cholecystitis, unspecified (principal); E87.2 Acidosis; Z68.42 Body mass index [BMI] 45.0-49.9, adult; R78.81 Bacteremia; D64.9 Anemia, unspecified; E03.9 Hypothyroidism, unspecified; E11.9 Type 2 diabetes mellitus without complications; I10 Essential (primary) hypertension; G25.81 Restless legs syndrome; E66.01 Morbid (severe) obesity due to excess calories; E78.00 Pure hypercholesterolemia, unspecified; E78.5 Hyperlipidemia, unspecified; F31.9 Bipolar disorder, unspecified; F41.9 Anxiety disorder, unspecified; R19.7 Diarrhea, unspecified; G43.909 Migraine, unspecified, not intractable, without status migrainosus; K82.8 Other specified diseases of gallbladder; M79.7 Fibromyalgia; Z92.21 Personal history of antineoplastic chemotherapy; Z85.41 Personal history of malignant neoplasm of cervix uteri; Z90.710 Acquired absence of both cervix and uterus; Z88.2 Allergy status to sulfonamides; Z88.8 Allergy status to other drugs, medicaments and biological substances; Z82.49 Family history of ischemic heart disease and other diseases of the circulatory system
CPT/HCPCS: 36415; 74177; 74300; 76705; 78227; 80053; 80076; 81001; 83605; 83690; 84484; 85007; 85025; 85610; 85651; 87040; 87045; 87077; 87205; 87493; 88304; 93005; 96365; 96375; A7015; A9537; J0360; J0690; J0696; J0780; J1100; J1885; J2001; J2250; J2270; J2405; J2543; J2704; J2710; J2805; J3010; J3370; J3490; J7030; J7050; J7120; Q0169; Q9967; 99285-25